=== PATIENT | female | born 1955 | race Caucasian/White ===

== ENCOUNTER → 2017-04-28 | Outpatient (CLI) | payer MEDICAID, OTHER ==
[~2017-04-28] MED LIST: /CELE20CA OR; /ROPI1TA OR; AMLO2.5T OR; ASPI81TA31 OR; DEXILANT PO; FLEXERIL PO; IBUP600T OR; LIPI10TA OR; LYRI150C OR; SAVELLA PO; TRAM50TA2 OR; VOLT1GEL TOP; VYTO10TA5 PO
--- NOTE | 2017-04-28 11:51 | REPMRS ---
Patient History The patient states she has not had a clinical breast exam in over a year. Patient is postmenopausal. Family history of prostate cancer in father at age 60, breast cancer in sister at age 48, endometrial cancer in mother at age 40, endometrial cancer in maternal grandmother, and unknown cancer in brother at age 50. Took unspecified hormones for 1 year. Digital Mammo Screening Bilat: April 28, 2017 - Exam #: [id number] Bilateral CC and MLO view(s) were taken. Technologist: Isadora Kohler, Technologist Prior study comparison: January 23, 2016, bilateral digital mammo screening bilat performed at [facility]. September 21, 2014, bilateral digital mammo screening bilat performed at [facility]. FINDINGS: There are scattered fibroglandular densities. There has been no change in the appearance of the mammogram from the prior studies. There is a mild amount of residual fibroglandular tissue which is fairly symmetric. There is no interval development of dominant mass, architectural distortion, or clustered microcalcification suggestive of malignancy. ASSESSMENT: BI-RADS/ACR category 1 mammogram. Negative. Recommendation Routine screening mammogram in 1 year (for women over age 40). This mammogram was interpreted with the aid of an FDA-approved computer-aided dectection system. Electronically Signed By: Taiwo Bashir MD 04/28/17 [id number]
== END ==
LOC: M RAD 10:50
PROVIDERS: ATTEND Nurse Practitioner Adult Health
DX: Z12.31 Encounter for screening mammogram for malignant neoplasm of breast (principal)

== ENCOUNTER → 2017-09-15 | Outpatient (CLI) | payer OTHER | LOC: M RAD 10:49 | DX: K44.9 Diaphragmatic hernia without obstruction or gangrene (principal) | CPT/HCPCS: 71046 ==

== ENCOUNTER → 2017-12-01 | Outpatient (CLI) | payer OTHER | LOC: M RAD 09:06 | DX: Z87.891 Personal history of nicotine dependence (principal); R06.00 Dyspnea, unspecified | CPT/HCPCS: G0297 ==

== ENCOUNTER → 2018-05-04 | Outpatient (CLI) | payer MEDICARE, MEDICAID, OTHER | LOC: M RAD 08:42 | DX: Z12.31 Encounter for screening mammogram for malignant neoplasm of breast (principal); R20.2 Paresthesia of skin | CPT/HCPCS: 72052 ==

== ENCOUNTER → 2018-12-21 | Outpatient (CLI) | payer MEDICARE, MEDICAID ==
[~2018-12-21] MED LIST changes: -/CELE20CA OR; -/ROPI1TA OR; +CELE1CAP4 OR; +REQU1TAB16 OR
--- NOTE | 2018-12-22 08:32 | REP ---
Clinical: Lung screening. History nicotine dependence. Comparison: 12/01/2017 Technique: Axial low-dose noncontrast images from the thoracic inlet to the upper abdomen using lung screening technique. Findings: The lung ward are well-aerated. Mild emphysematous changes are appreciated. No consolidation, significant nodule or mass lesion is appreciated. No pleural effusion/reaction or pneumothorax. Tracheobronchial tree is patent. Mediastinum demonstrates mild atherosclerotic changes of the coronary arteries without cardiomegaly. Impression: Lung-RADS category I. No nodule or suspicious abnormality. Management recommendations include annual low-dose CT evaluation. Electronically Signed by James Mancilla MD 12/22/2018 08:23 A
== END ==
LOC: M RAD 10:25
PROVIDERS: ATTEND Physician Assistant
DX: Z87.891 Personal history of nicotine dependence (principal)

== ENCOUNTER 2019-05-21 18:26 | Inpatient (IN) | payer MEDICAID, MEDICARE ==
[~2019-05-21] VITALS: Ht 162.6 cm; Wt 95.3 kg
[2019-05-21] MEDS ORDERED: LISI10TA4 PO (18:36)
[2019-05-21] MEDS ORDERED: PANT40TA3 PO (18:36)
[2019-05-21] MEDS ORDERED: ROSU20TA5 PO (18:36)
[2019-05-21] MEDS ORDERED: ARNU1INH3 INH (18:36)
[2019-05-21] MEDS ORDERED: MELO15TA28 PO (18:36)
[2019-05-21] MEDS ORDERED: STIO1AER INH (18:36)
[2019-05-21] MEDS ORDERED: PREG75CA2 PO (18:36)
--- NOTE | 2019-05-21 19:08 | ECGEPIP ---
[facility] - ED Test Date: 2019-05-21 Pat Name: JAI FLORES Department: Room: - Gender: Female [employer] Operator: PARDEEP : [id number] Requested By: ORALIA Becker Order Number: [id number] Reading MD: Alexsander Angulo Measurements Intervals [place] Rate: 94 P: 60 AR: 125 QRS: 5 QRSD: 88 T: 32 QT: 349 QTc: 438 Interpretive Statements SINUS RHYTHM BASELINE ARTIFACT AFFECTS INTERPRETATION NO PRIORS FOR COMPARISON Electronically Signed on 05-21-2019 19:07:42 EDT by Alexsander Angulo
[2019-05-21 19:18] LABS: BASO % 0.5 % (0.0-1.0); EOS # 0.1 10^3/uL (0.0-0.5); EOS % 0.9 % (0.0-3.0); HEMATOCRIT 24.2 % (36.0-47.0); LYMPH # 0.6 10^3/uL (1.5-5.0); LYMPH % 6.7 % (24.0-44.0); MEAN CORPUSCULAR HEMOGLOBIN 16.8 pg (27.0-33.0); MEAN CORPUSCULAR VOLUME 64.5 fl (80.0-96.0); MONO # 0.6 10^3/uL (0.0-0.8); MONO % 6.4 % (0.0-5.0); NEUTROPHILS # 7.4 10^3/uL (1.5-8.5); NEUTROPHILS % 84.9 % (36.0-66.0); PLATELET COUNT, AUTOMATED 329 10^3/uL (150-450); RED BLOOD COUNT 3.75 10^6/uL (4.00-5.40); WHITE BLOOD COUNT 8.8 10^3/uL (4.0-10.0)
[2019-05-21 19:21] LABS: HEMOGLOBIN 6.3 g/dl (12.0-15.5)
[2019-05-21 19:49] LABS: ALBUMIN 3.4 GM/DL (3.2-5.2); ALT/SGPT 15 U/L (12-78); BILIRUBIN,DIRECT < 0.1 MG/DL (0.0-0.2); BILIRUBIN,TOTAL 0.3 MG/DL (0.2-1.0); BLOOD UREA NITROGEN 16 MG/DL (7-18); CALCIUM LEVEL 8.3 MG/DL (8.8-10.2); CARBON DIOXIDE LEVEL 22 MEQ/L (21-32); CHLORIDE LEVEL 106 MEQ/L (98-107); CK-MB VALUE MASS < 1.0 NG/ML (<3.6); CPK CREATINE PHOSPHOKINASE 31 U/L (26-192); CREATININE FOR GFR 1.12 MG/DL (0.55-1.30); GLOMERULAR FILTRATION RATE 52.3 (>45); GLUCOSE, FASTING 148 MG/DL (70-100); MB/CK RELATIVE INDEX 3.23 (< OR =4); NT-PRO BNP 292 PG/ML (<125); POTASSIUM SERUM 4.4 MEQ/L (3.5-5.1); SODIUM LEVEL 138 MEQ/L (136-145); THYROXINE (T4) 12.6 UG/DL (4.5-12.0); TOTAL PROTEIN 7.2 GM/DL (6.4-8.2); TROPONIN I < 0.02 NG/ML (< 0.10)
--- NOTE | 2019-05-21 20:05 | REP ---
HISTORY: Cough. COMPARISON: 09/15/2017 The technique utilized in obtaining the radiograph has magnified the cardiac silhouette and accentuated the interstitial markings. The superior mediastinal structures are midline. The cardiac silhouette is unremarkable in size, shape, and position. The diaphragmatic surfaces of the lungs are regular, and the costophrenic angles are clear. The pulmonary ward are clear. The imaged osseous structures are intact. There is a hiatal hernia, status quo. IMPRESSION: There is no acute cardiopulmonary disease. Electronically Signed by Deon Abrams DO 05/22/2019 09:07 A
[2019-05-21] MEDS ORDERED: PANTOPRAZOLE 40MG INJ (PROTONIX) (C9113) IV ONE (20:15)
[2019-05-21] MEDS ORDERED: ASPI81TA26 PO (20:23)
[2019-05-21] MEDS ORDERED: ROPI1TAB PO (20:23)
[2019-05-21] MEDS ORDERED: TUMS500C PO (20:26)
[2019-05-21] MEDS ORDERED: SODIPOW PO (20:26)
[2019-05-21] MEDS ORDERED: METOCLOPRAMIDE INJ 10MG/2ML VIAL (J2765) IV ONE (20:30)
[2019-05-21 23:29] VITALS: BP 151/67
[2019-05-21 23:45] VITALS: BP 145/68
[2019-05-22] VITALS (26 sets, daily range): BP systolic 122–180; BP diastolic 56–89
[2019-05-22] MEDS: NS 1,000 ML IV SCH ×3 (01:46→15:15)
--- NOTE | 2019-05-22 02:54 | HPEPDOC ---
[facility] Medical History & Physical Date of Admission May 21, 2019 Date of Service: May 21, 2019 Primary Care Physician: Montserrat Crowe Attending Physician: MOIZ SHRESTHA MD History and Physical CHIEF COMPLAINT: Progressive shortness of breath HISTORY OF PRESENT ILLNESS: Violetta is a 63-year-old female with pertinent past medical history of COPD, asthma, GERD, hypertension, and neuropathic pain, who presented to the emergency department on the evening of 05/21 with the chief complaints of progressive shortness of breath over the last month with accompanying lightheadedness, generalized weakness, and epigastric discomfort. Patient reports that she used to be able to walk roughly half a block on flat ground before becoming short of breath, but over the last month, she now gets short of breath after about 10 feet. Patient has an inhaled corticosteroid inhaler medication at home for her asthma, as well as a combination inhaler long-acting anticholinergic/long-acting bronchodilator for her COPD, as well as a rescue albuterol inhaler. Patient reports an increased use of her rescue inhaler recently. The lightheadedness she is experiencing first arose last week and was especially pronounced today. She gets lightheaded whenever standing from a seated/lying position. She denies any syncope, but states on multiple occasions while experiencing the lightheadedness, she feels like she could pass out. Patient describes her epigastric discomfort as a gas/pressure buildup that "hurts like hell." The discomfort spreads laterally from the epigastric region over the ribs bilaterally, and is constant in nature. Patient has tried baking soda and Pepto-Bismol to alleviate her epigastric discomfort but any benefit. She got was very short-lived. Any appreciable activity worsens her shortness of breath. Patient has felt nauseated and vomited 3 times while in the emergency department. At time of admission exam, patient is not nauseated. Patient denies hematemesis and hemoptysis. Patient reports never having a constellation of symptoms like this before. Patient denies any recent illness, recent change in medication, recent sick contacts, and recent extensive travel. Patient was accompanied by her daughter Zahra. Patient's primary care provider is Montserrat Crowe NP, who is affiliated with Dr. Price's office. Patient follows regularly with pulmonology as outpatient, seeing JASSI Ulloa, who is affiliated with Dr. Feroz Gage. In the emergency department, patient received EKG and chest x-ray that were unremarkable. Initial CBC showed microcytic anemia with hemoglobin of 6.3. On review of patient's lifetime summary, hemoglobin baseline appears roughly 11-12. CMP showed mild elevation in BNP and T4. Patient received a single administration of 40 mg IV Protonix, had a type and screen performed, and a stool guaiac test was strongly blue (suggesting upper GI bleed). Patient was admitted to the progressive care unit under the care and medical management of the hospitalist team. PAST MEDICAL HISTORY: COPD Asthma GERD Hypertension Neuropathic pain Restless leg syndrome Hiatal hernia PAST SURGICAL HISTORY: Tonsillectomy Cholecystectomy Surgical removal of ganglion cyst from left forearm/wrist SOCIAL HISTORY: Resides: At own home by herself Children: One grown daughter (Zahra) who lives nearby Employment: Retired; former [employer] Tobacco use: Patient smoked 1-1.5 packs per day of cigarettes for roughly 47 years before stopping 3 years ago. She then began smoking e-cigarette's, reporting her most recent e-cigarette use was last week. ETOH: Denies Illicit drug use: Denies FAMILY HISTORY: Siblings: Canales's esophagus (brother); 2 sisters (breast and lung cancer), both Children: One grown daughter (Zahra) ALLERGIES: Please see below. REVIEW OF SYSTEMS: CONSTITUTIONAL: Denies fever, chills, night sweats, recent unintentional change in weight HEENT: Endorses lightheadedness; Denies headache, syncope, dizziness, ear pain, eye pain, diplopia, blurry vision, rhinorrhea, sore throat CARDIOVASCULAR: Endorses chest pain that arises when her epigastric discomfort is most intense, but is sensed at no other times; denies chest pressure or palpitations RESPIRATORY: Denies shortness of breath at time of admission exam; denies ple uritic chest pain or cough GASTROINTESTINAL: Endorses epigastric discomfort/increased pressure with frequent belching; denies feeling nauseated or vomiting at time of admission exam, but does endorse nausea and vomiting from earlier in the day with 3 episodes of emesis. GENITOURINARY: Denies dysuria or hematuria MUSCULOSKELETAL: Endorses chronic bilateral lower back pain NEUROLOGICAL: Endorses left hand numbness and bilateral lower extremity paresthesias ENDOCRINE: Denies heat or cold intolerance HOME MEDICATIONS: Please see below. PHYSICAL EXAMINATION: VITAL SIGNS: (Noted on monitoring at time of admission exam), heart rate 82, blood pressure 156/74, respiratory rate 19, O2 saturation 100% on room air GENERAL APPEARANCE: Patient appeared a little bit subdued and fatigued. She was lying upright in bed initially during exam, but switched to sitting upright with legs off the side of the bed for most of the exam. She did not appear to be in any acute respiratory distress and was not on any supplemental oxygen. She was awake, alert and oriented 3. She maintained good eye contact. She was speaking in complete sentences, with appropriate responses to questions and commands HEENT: Patient was wearing eyeglasses. Normocephalic, atraumatic. Facial pallor with conjunctival pallor. Anicteric sclera. Pupils were equal, round, reactive to light and accommodation. On extraocular motion testing, patient exhibited a couple quick instances of vertical nystagmus. Carroll and moist mucous membranes.. No pharyngeal erythema or exudate. Trachea is midline. Neck was supple. No cervical or supraclavicular palpable lymphadenopathy. CARDIOVASCULAR: Normal S1, S2 with regular rate and rhythm. No murmurs, rubs, or gallops appreciated. No JVD. Adequate capillary refill. No lower extremity edema. LUNGS: Mildly diminished tidal volume with symmetric chest expansion. No wheezing, rhonchi, or crackles are appreciated on auscultation. There is no tympany to percussion. ABDOMEN: Soft, nondistended. Significant discomfort and pain upon palpation of epigastric area and right upper quadrant. Hypoactive bowel sounds. No hepatomegaly or masses appreciated on palpation. No tympany to percussion. MUSCULOSKELETAL: 5 out of 5 muscle strength testing of upper extremities and lower extremities bilaterally EXTREMITIES: 2+ radial and posterior tibial pulses palpated bilaterally. No lower extremity edema. No cyanosis or clubbing. NEUROLOGICAL: Awake, alert and oriented 3. Maintains good eye contact and responds properly to questions and commands. Sensation to light touch of left hand mildly diminished versus right hand. Moves all extremities upon command. PSYCHIATRIC: Appropriate mood, appropriate affect LABORATORY DATA: Please see below. IMAGIN/11, portable chest x-ray showed no acute cardiopulmonary disease and an unchanged hiatal hernia. MICROBIOLOGY: Please see below. ASSESSMENT & PLAN: This is a 63-year-old female with pertinent past medical history of COPD, asthma, GERD, hypertension, and neuropathic pain who presents the emergency department on the evening of 05/21 with a chief complaint of progressing shortness of breath over the last month with accompanying generalized weakness, lightheadedness, presyncope, and epigastric discomfort and fullness. Initial ED labs showed microcytic anemia with hemoglobin of 6.3. Guaiac stool test result was strongly blue indicating likelihood of upper GI bleed. Patient had 3 episodes of emesis while in the emergency department, but denied hematemesis or hemoptysis. Chest x-ray and EKG were unremarkable. Patient was given IV Protonix and was type and screened. Benefits and risks of blood transfusion were discussed with patient. Patient signed consent form to receive blood transfusion. Patient was transfused 2 units of packed red blood cells. Patient was admitted to the progressive care unit under the care of hospitalist team. Telemetry and scheduled IV Protonix were ordered. IV fluids were started. Morning CBC and metabolic panel were ordered. Influenza vaccination scheduled for the morning. #Symptomatic microcytic anemia -Patient had pallor on exam and appeared to be fatigued and somewhat subdued. -Initial hemoglobin was 6.3, with MCV of 64.5; lifetime summary review showed patient's baseline hemoglobin around 11-12 -Patient signed consent form to receive blood transfusion after discussing benefits and risks with provider. Patient was transfused 2 units of packed red blood cells. -Morning CBC ordered -IV fluids ordered. Patient on clear liquid diet -IV Protonix scheduled dose, q12h -Orthostatics ordered with morning vitals to assess for possible orthostatic hypotension in the setting of recent lightheadedness and presyncope -Daily thiamine and folic acid ordered #Possible upper gastro-intestinal bleed -Patient had strongly blue result on Guaiac stool test in ED, indicating possible upper GI bleed -Patient had pallor on exam, and 3 episodes of emesis in [facility] department. There was no hematemesis or hemoptysis. -Patient complaining of epigastric fullness and discomfort -Patient has history of GERD and hiatal hernia -GI consult was made for the morning (Dr. Ruvalcaba) -Patient on clear liquid diet -IV Protonix scheduled dose, q12h #GERD -Patient complaining of epigastric fullness and discomfort -Chest x-ray showed unchanged hiatal hernia -Continue with scheduled IV Protonix -Patient on clear liquid diet #COPD -Patient has home albuterol rescue inhaler that she's used more frequently of late -Patient also has home combo long acting anti-cholinergic/long-acting bronchodilator. This medication is not available on hospital formulary. -No wheezing, rhonchi, or crackles appreciated on auscultation while examining patient. Patient had good saturation on room air -Patient prescribed prn albuterol inhaler while inpatient #Asthma -Patient has home albuterol rescue inhaler that she's used more frequently of late -No wheezing was appreciated upon auscultation when examining patient -Patient also has home inhaled corticosteroid. This medication is not available on hospital formulary. -Patient good saturation, room air -Patient prescribed prn albuterol inhaler while inpatient #Hypertension -Patient has been maintaining pressures with regular heart rate in the setting of microcytic anemia (Hgb 6.3) -Patient's home lisinopril was continued #Restless leg syndrome -Patient's home ropinirole was continued #Neuropathic pain -Patient's home Lyrica was held initially #DVT prophylaxis: Teds and sequentials were ordered. Patient has activity directives of out of bed with assist and has potential for upper GI bleed. #Stress ulcer prophylaxis: Patient receiving scheduled IV Protonix I saw and evaluated the patient. Discussed with resident and agree with resident's findings and plan as documented in the resident's note. Vital Signs Vital Signs Date Time Temp Pulse Resp B/P (MAP) Pulse Ox O2 Delivery O2 Flow Rate FiO2 05/22/19 01:06 97.5 79 20 167/89 99 05/22/19 00:47 Room Air Laboratory Data Labs 24H Laboratory Tests 2 05/21/19 19:07: Immature Granulocyte % (Auto) 0.6, White Blood Count 8.8, Red Blood Count 3.75L, Hemoglobin 6.3*L, Hematocrit 24.2L, Mean Corpuscular Volume 64.5L, Mean Corpuscular Hemoglobin 16.8L, Mean Corpuscular Hemoglobin Concent 26.0L, Red Cell Distribution Width 21.1H, Platelet Count 329, Neutrophils (%) (Auto) 84.9H, Lymphocytes (%) (Auto) 6.7L, Monocytes (%) (Auto) 6.4H, Eosinophils (%) (Auto) 0.9, Basophils (%) (Auto) 0.5, Neutrophils # (Auto) 7.4, Lymphocytes # (Auto) 0.6L, Monocytes # (Auto) 0.6, Eosinophils # (Auto) 0.1, Basophils # (Auto) 0.0, Nucleated Red Blood Cells % (auto) 0.3H, Anion Gap 10, Glomerular Filtration Rate 52.3, Calcium Level 8.3L, Aspartate Amino Transf (AST/SGOT) 7, Alanine Aminotransferase (ALT/SGPT) 15, Alkaline Phosphatase 92, Total Bilirubin 0.3, Direct Bilirubin < 0.1, Total Creatine Kinase 31, Creatine Kinase MB < 1.0, Creatine Kinase MB Relative Index 3.23, Troponin I < 0.02, EQ-Zqf-O-Type Natriuretic Peptide 292H, Total Protein 7.2, Albumin 3.4, Albumin/Globulin Ratio 0.89L, Thyroid Stimulating Hormone (TSH) 1.420, Thyroxine (T4) 12.6H CBC/BMP Laboratory Tests 05/21/19 19:07 Red Blood Count 3.75 L, Mean Corpuscular Volume 64.5 L, Mean Corpuscular Hemoglobin 16.8 L, Mean Corpuscular Hemoglobin Concent 26.0 L, Red Cell Distribution Width 21.1 H, Neutrophils (%) (Auto) 84.9 H, Lymphocytes (%) (Auto) 6.7 L, Monocytes (%) (Auto) 6.4 H, Eosinophils (%) (Auto) 0.9, Basophils (%) (Auto) 0.5, Neutrophils # (Auto) 7.4, Lymphocytes # (Auto) 0.6 L, Monocytes # (Auto) 0.6, Eosinophils # (Auto) 0.1, Basophils # (Auto) 0.0 Home Medications Scheduled Aspirin (Aspirin EC) 81 Mg Tablet.dr, 81 MG PO DAILY Calcium Carbonate (Tums) 200 Mg Tab.chew, 500 MG PO PC Fluticasone Furoate (Arnuity Ellipta) 200 Mcg Blst.w.dev, 1 PUFF INH DAILY Lisinopril (Lisinopril) 10 Mg Tablet, 10 MG PO DAILY Meloxicam (Meloxicam) 15 Mg Tablet, 15 MG PO DAILY Pantoprazole Sodium (Pantoprazole Sodium) 40 Mg Tablet.dr, 40 MG PO BID Pregabalin (Pregabalin) 75 Mg Capsule, 75 MG PO BID Ropinirole HCl (Ropinirole HCl) 1 Mg Tablet, 1 MG PO QHS Rosuvastatin Calcium (Rosuvastatin Calcium) 20 Mg Tablet, 20 MG PO DAILY Sodium Bicarbonate (Sodium Bicarbonate) 454 Gm Powder, 1 TSP PO WM MIXED WITH 4 OZ WATER Tiotropium Br/Olodaterol HCl (Stiolto Respimat Inhal [place]) 4 Gm Mist.inhal, 2 PUFF INH DAILY Allergies Coded Allergies: No Known Allergies (Verified , 02/14/03) A-FIB/CHADSVASC A-FIB History Current/History of A-Fib/PAF?: No Current PO Anticoag Therapy: No (teds and sequentials ordered) DENISE PERRY PGY-1 May 22, 2019 02:54 MOIZ SHRESTHA MD May 22, 2019 18:50
[2019-05-22] MEDS ORDERED: ALBUTEROL 90 MCG/ACT 8GM HFA INHALER INH PRN (03:15)
[2019-05-22] MEDS: rOPINIRole 1MG TAB PO SCH ×2 (03:52→21:18)
[2019-05-22 08:03] LABS: BASO % 0.6 % (0.0-1.0); EOS % 0.6 % (0.0-3.0); HEMATOCRIT 27.1 % (36.0-47.0); HEMOGLOBIN 7.8 g/dl (12.0-15.5); LYMPH # 0.7 10^3/uL (1.5-5.0); LYMPH % 10.5 % (24.0-44.0); MEAN CORPUSCULAR HEMOGLOBIN 20.1 pg (27.0-33.0); MEAN CORPUSCULAR HGB CONC 28.8 g/dl (32.0-36.5); MEAN CORPUSCULAR VOLUME 69.8 fl (80.0-96.0); MONO # 0.5 10^3/uL (0.0-0.8); NEUTROPHILS % 79.5 % (36.0-66.0); PLATELET COUNT, AUTOMATED 252 10^3/uL (150-450); RED BLOOD COUNT 3.88 10^6/uL (4.00-5.40); WHITE BLOOD COUNT 6.3 10^3/uL (4.0-10.0)
[2019-05-22 08:22] LABS: BLOOD UREA NITROGEN 14 MG/DL (7-18); CALCIUM LEVEL 8.2 MG/DL (8.8-10.2); CARBON DIOXIDE LEVEL 23 MEQ/L (21-32); CHLORIDE LEVEL 111 MEQ/L (98-107); CREATININE FOR GFR 0.92 MG/DL (0.55-1.30); GLOMERULAR FILTRATION RATE > 60.0 (>45); GLUCOSE, FASTING 103 MG/DL (70-100); SODIUM LEVEL 140 MEQ/L (136-145)
[2019-05-22] MEDS: LISINOPRIL 10 MG TAB PO SCH (08:35)
[2019-05-22] MEDS: ROSUVASTATIN 10 MG TAB (CRESTOR) PO SCH (08:35)
[2019-05-22] MEDS: PANTOPRAZOLE 40MG INJ (PROTONIX) (C9113) IV SCH ×2 (08:35→21:18)
[2019-05-22] MEDS: THIAMINE HCL 200 MG/2 ML VIAL (J3411) IV SCH (08:35)
[2019-05-22] MEDS ORDERED: FOLIC ACID 1MG/0.2ML VIAL SC SCH (09:00)
[2019-05-22] MEDS ORDERED: FLUBLOK(EGG FREE)(QUAD)INFLUENZA VACC 0.5ML SYRINGE (90682)18YRS&OLDER IM ONE (09:00)
--- NOTE | 2019-05-22 10:23 | IPNPDOC ---
Date Seen The patient was seen on 05/22/19. Progress Note SUBJECTIVE: Patient is a 63-year-old female who was admitted to the hospital for symptomatic anemia thought to be secondary to an insidious GI bleed. Patient was interviewed and examined this morning her hospital room. Repeat hemoglobin this morning status post 2 units of blood was found to be 7.8. Patient reports improvement in her dizziness and shortness of breath. She denies any chest pain, currently breathing, abdominal pain. She has utilized the bathroom this morning without any difficulty. She denies any milena blood or black tarry stools this morning. She denies any pain or discomfort. OBJECTIVE PHYSICAL EXAMINATION: VITAL SIGNS: Please see below. GENERAL: She was interviewed and examined in her hospital room. Patient was found to be laying in her hospital bed comfortably in no acute distress. She was alert and oriented and able to answer questions appropriately. HEENT: Normocephalic, atraumatic, EOMI, no scleral icterus, some conjunctival pallor noted. His membranes are moist. CARDIOVASCULAR: Regular rate and rhythm, normal S1 and S2 no murmurs auscultated RESPIRATORY: Clear to auscultation bilaterally without any wheezes rales or rhonchi, good air movement ABDOMINAL: Obese, soft, nontender, nondistended, no organomegaly EXTREMITIES: No lower extremity edema noted or calf tenderness bilaterally NEUROLOGICAL: Awake alert and oriented 3 PSYCHOLOGICAL: Mood and affect are appropriate given patient's current clinical condition LABORATORY DATA: Please see below IMAGING STUDIES: Chest x-ray (05/21/19): There is no acute cardio pulmonary disease. ASSESSMENT AND PLAN: This is a 63-year-old female with pertinent past medical history of COPD, asthma, GERD, hypertension, and neuropathic pain who presents the emergency department on the evening of 05/21 with a chief complaint of progressing shortness of breath over the last month with accompanying generalized weakness, lightheadedness, presyncope, and epigastric discomfort and fullness. Initial ED labs showed microcytic anemia with hemoglobin of 6.3. Guaiac stool test result was strongly blue indicating likelihood of upper GI bleed. Patient had 3 episodes of emesis while in the emergency department, but denied hematemesis or hemoptysis. Chest x-ray and EKG were unremarkable. Patient was given IV Protonix and was type and screened. Benefits and risks of blood transfusion were discussed with patient. Patient signed consent form to receive blood transfusion. Patient was transfused 2 units of packed red blood cells. Patient was admitted to the progressive care unit under the care of hospitalist team. Telemetry and scheduled IV Protonix were ordered. IV fluids were started. Repeat CBC this morning following 2 units of blood and was found to be 7.8. Patient to be given an additional 2 units with repeat CBC later today. GI was consulted and was in agreement to see the patient later in the day. Patient be transitioned to a regular diet for today and clear liquids tomorrow with a tentative plan for scope on Friday. PROBLEMS: #Symptomatically anemia, suspected secondary from GI bleed Patient presented to the emergency department pallorous and feeling fatigued. One-month history of intermittent black tarry stools. Patient states that she had previously had a normal colonoscopy and EGD but is unsure as to when these tests were performed. She states they occur greater than 5 years ago. Lifetime review of the patient's baseline hemoglobin found to be around 1112.Presenting hemoglobin of 6.3. Patient is status post 2 units of packed cells. Repeat hemoglobin this morning 7.8. Plan to administer 2 more units of packed red cells. Continue IV Protonix for GI prophylaxis. GI consult placed and we appreciate their assistance in managing this patient. Specialist planning on seeing the patient later this afternoon. Patient to be continued on regular diet today and then transitioned to clears tomorrow for a possible scope on Friday. Continue to trend hemoglobin with serial H&H. #GERD Unchanged hiatal hernia on CXR Patient receiving IV Protonix for GI prophylaxis. #COPD Continue when necessary albuterol inhaler #Asthma Continue when necessary albuterol inhaler Hypertension Pressures remained stable with regular heart rate. Continue home lisinopril. #Restless leg syndrome Continue home ropinirole #Neuropathic pain Continue home dose of Lyrica DISPOSITION: Anticipate discharge following GI consult and need for in-hospital EGD/colonoscopy is determined. DVT PROPHYLAXIS: TEDs and Sequentials given possibility GI bleed. VS, I&O, 24H, Fishbone Vital Signs/I&O Vital Signs Date Time Temp Pulse Resp B/P (MAP) Pulse Ox O2 Delivery O2 Flow Rate FiO2 05/22/19 08:35 138/68 05/22/19 07:35 98.8 75 18 94 05/22/19 00:47 Room Air I&O- Last 24 Hours up to 6 AM 05/22/19 06:00 Intake Total 2150 ml Output Total 425 ml Balance 1725 ml Laboratory Data 24H LABS Laboratory Tests 2 05/21/19 19:07: Immature Granulocyte % (Auto) 0.6, White Blood Count 8.8, Red Blood Count 3.75L, Hemoglobin 6.3*L, Hematocrit 24.2L, Mean Corpuscular Volume 64.5L, Mean Corpuscular Hemoglobin 16.8L, Mean Corpuscular Hemoglobin Concent 26.0L, Red Cell Distribution Width 21.1H, Platelet Count 329, Neutrophils (%) (Auto) 84.9H, Lymphocytes (%) (Auto) 6.7L, Monocytes (%) (Auto) 6.4H, Eosinophils (%) (Auto) 0.9, Basophils (%) (Auto) 0.5, Neutrophils # (Auto) 7.4, Lymphocytes # (Auto) 0.6L, Monocytes # (Auto) 0.6, Eosinophils # (Auto) 0.1, Basophils # (Auto) 0.0, Nucleated Red Blood Cells % (auto) 0.3H, Anion Gap 10, Glomerular Filtration Rate 52.3, Calcium Level 8.3L, Aspartate Amino Transf (AST/SGOT) 7, Alanine Aminotransferase (ALT/SGPT) 15, Alkaline Phosphatase 92, Total Bilirubin 0.3, Direct Bilirubin < 0.1, Total Creatine Kinase 31, Creatine Kinase MB < 1.0, Creatine Kinase MB Relative Index 3.23, Troponin I < 0.02, OX-Tpt-X-Type Natriuretic Peptide 292H, Total Protein 7.2, Albumin 3.4, Albumin/Globulin Ratio 0.89L, Thyroid Stimulating Hormone (TSH) 1.420, Thyroxine (T4) 12.6H 05/22/19 07:43: Immature Granulocyte % (Auto) 0.8, White Blood Count 6.3, Red Blood Count 3.88L, Hemoglobin 7.8L, Hematocrit 27.1L, Mean Corpuscular Volume 69.8L, Mean Corpuscular Hemoglobin 20.1L, Mean Corpuscular Hemoglobin Concent 28.8L, Red Cell Distribution Width 23.8H, Platelet Count 252, Neutrophils (%) (Auto) 79.5H, Lymphocytes (%) (Auto) 10.5L, Monocytes (%) (Auto) 8.0H, Eosinophils (%) (Auto) 0.6, Basophils (%) (Auto) 0.6, Neutrophils # (Auto) 5.0, Lymphocytes # (Auto) 0.7L, Monocytes # (Auto) 0.5, Eosinophils # (Auto) 0.0, Basophils # (Auto) 0.0, Nucleated Red Blood Cells % (auto) 0.0, Anion Gap 6L, Glomerular Filtration Rate > 60.0, Calcium Level 8.2L, Blood Urea Nitrogen 14, Creatinine 0.92, Sodium Level 140, Potassium Level 4.0, Chloride Level 111H, Carbon Dioxide Level 23 CBC/BMP Laboratory Tests 05/21/19 19:07 Red Blood Count 3.75 L, Mean Corpuscular Volume 64.5 L, Mean Corpuscular Hemoglobin 16.8 L, Mean Corpuscular Hemoglobin Concent 26.0 L, Red Cell Distribution Width 21.1 H, Neutrophils (%) (Auto) 84.9 H, Lymphocytes (%) (Auto) 6.7 L, Monocytes (%) (Auto) 6.4 H, Eosinophils (%) (Auto) 0.9, Basophils (%) (Auto) 0.5, Neutrophils # (Auto) 7.4, Lymphocytes # (Auto) 0.6 L, Monocytes # (Auto) 0.6, Eosinophils # (Auto) 0.1, Basophils # (Auto) 0.0 05/22/19 07:43 Red Blood Count 3.88 L, Mean Corpuscular Volume 69.8 L, Mean Corpuscular Hemoglobin 20.1 L, Mean Corpuscular Hemoglobin Concent 28.8 L, Red Cell Distribution Width 23.8 H, Neutrophils (%) (Auto) 79.5 H, Lymphocytes (%) (Auto) 10.5 L, Monocytes (%) (Auto) 8.0 H, Eosinophils (%) (Auto) 0.6, Basophils (%) (Auto) 0.6, Neutrophils # (Auto) 5.0, Lymphocytes # (Auto) 0.7 L, Monocytes # (Auto) 0.5, Eosinophils # (Auto) 0.0, Basophils # (Auto) 0.0, Calcium Level 8.2 L GME ATTESTATION GME ATTESTATION My faculty preceptor for this patient encounter was physically present during the encounter and was fully available. All aspects of the patient interview, examination, medical decision making process, and medical care plan development were reviewed and approved by the faculty preceptor. The faculty preceptor is aware and concurs with the plan as stated in the body of this note and will attest to such by his/her cosignature. ATTENDING NOTE I, Tete Arora, have independently examined this patient and performed my own physical exam, as well as reviewed the documentation and edited where necessary. I have discussed in detail with the resident / student the findings and plan of treatment as documented by the resident / student and edited their note. I agree with their findings and treatment plan and have edited their documentation. I will continue to follow the patient during this hospital stay. HA LARIOS DO May 22, 2019 10:23 TETE ARORA MD May 22, 2019 15:31
[2019-05-22 15:50] LABS: HEMATOCRIT 33.7 % (36.0-47.0)
[2019-05-22 15:54] LABS: HEMOGLOBIN 10.2 g/dl (12.0-15.5)
[2019-05-22 19:29] LABS: HEMATOCRIT 33.7 % (36.0-47.0); HEMOGLOBIN 10.1 g/dl (12.0-15.5)
--- NOTE | 2019-05-22 23:22 | CR.PDOC ---
General Date of Consultation: May 22, 2019 Referring Provider: KARIN TELLEZ MD Attending Physician: BEL FLOREZ MD Consultation Primary physician/ hospitalist: Dr. Montserrat Crowe,/ Dr. Tellez Reason for consult: Symptomatic anemia. HPI: 63 year old female patient with BA/ COPD ( quit smoking many years ago), HTN, Neuropathic pain, Chronic acid reflux ( not well controlled) presented to the emergency department on the evening of 05/21 with the chief complaints of progressive shortness of breath over the last month with accompanying lightheadedness, generalized weakness, and chronic epigastric discomfort. Patient is noted to have severe anemia on labs and GI consulted for the same. Patient reports that she was having chronic upper abdominal pain, moderate to severe, uncontrolled with current acid suppressing medications she is using at home. Patient denies any overt external bleeding but did notice dark, diarrheal stools few weeks ago, which resolved on its own. Patient also reported having nausea and few episodes of vomiting in ER but no blood in vomiting. Pertinent negative GI symptoms: Patient denies fever, sick contacts, recent travel, loss of appetite, early satiety or unintentional weight loss. No history of hematemesis, or hematochezi a. Review of Systems: GI: as stated above CVS: No chest pain, No palpitations, No leg swelling. RS: No Shortness of breath, No Wheezing, no cough EDM OPERATOR: No dizziness, No motor weakness, No sensory problems Hematology: No bruising, No gum bleeding, Musculoskeletal: No joint pain, ambulating well. Skin: No rash : No hematuria, No burning sensation of the urine ENT: No ear discharge/ pain, No dysphagia. Eyes: No photophobia. Jaundice Home medications: reviewed. Antithrombotic agents ASA 81 mg Medical h/o: As above. Surgical h/o: Gall bladder surgery.. Social h/o: Alcohol Denies, smoking Quit smoking., IVDA/ drugs Denies. Family h/o of GI cancers - None Prior Endoscopies: --- EGD [place] [address] Bennett for heartburn noted large hiatal hernia. Noted esophagitis on Biopsies. --- Colonoscopy in 2013 -- Done for screening by Dr. Bennett few sessile polyps in recto-sigmoid. Prior GI evaluations: Follows with Dr. Bennett Exam: Vitals: reviewed General: Alert and oriented x 3, not in distress HEENT: Mild pallor, no icterus. Normal oropharynx, No cervical lymph nodes. Chest: symmetric with bilateral clear air entry, CVS: S1, S2 heard, normal, no murmurs . Abdomen: non-distended, no surgical scars, soft, non-tender, ( reports prior pain but currently normal), no palpable masses, normal bowel sounds heard. Rectal exam: Patient refused / Deferred at this time in view of scheduled colonoscopy. Extremities: no pedal edema, pulses palpable. EDM OPERATOR: no focal motor or sensory deficits. Moves all extremities Skin: no rash. Labs: reviewed. Severe microcytic anemia. Imaging: reviewed. Impression: - Symptomatic anemia with chronic history of uncontrolled acid reflux, epigastric pain with prior episodes of dark stools DDxEsophagitis vs PUD vs AVMs vs Colon polyps vs less likely esophageal cancer. Recommendations: - Patient educated about the test results, possible differential diagnoses and All questions answered. - Monitor H.H and transfuse as needed to hemoglobin level of 8. - Continue with IV PPI pushes for now. - Will schedule for EGD and Colonoscopy after bowel preparation. - The procedures, indications, risks (bleeding, perforation, infection, hypotension, respiratory depression, allergy, need for endotracheal intubation, surgery, colostomy, cardiac arrest, even ), benefits, limitations (e.g., missing a lesion), and all other alternatives (including no intervention) were explained to the patient who understood and agreed for the procedures. - Bowel prep ordered placed. - Follow operative note for post procedure recommendations. Plan of care discussed with patient and primary team. Patient verbalized understanding and agreed with the plan. Vital Signs/I&O Vital Signs Date Time Temp Pulse Resp B/P (MAP) Pulse Ox O2 Delivery O2 Flow Rate FiO2 05/22/19 20:00 98.8 82 18 150/86 (107) 100 05/22/19 00:47 Room Air I&O- Last 24 Hours up to 6 AM 05/22/19 06:00 Intake Total 2150 ml Output Total 425 ml Balance 1725 ml Laboratory Data Labs 24H Laboratory Tests 2 05/22/19 07:43: Immature Granulocyte % (Auto) 0.8, White Blood Count 6.3, Red Blood Count 3.88L, Hemoglobin 7.8L, Hematocrit 27.1L, Mean Corpuscular Volume 69.8L, Mean Corpuscular Hemoglobin 20.1L, Mean Corpuscular Hemoglobin Concent 28.8L, Red Ce ll Distribution Width 23.8H, Platelet Count 252, Neutrophils (%) (Auto) 79.5H, Lymphocytes (%) (Auto) 10.5L, Monocytes (%) (Auto) 8.0H, Eosinophils (%) (Auto) 0.6, Basophils (%) (Auto) 0.6, Neutrophils # (Auto) 5.0, Lymphocytes # (Auto) 0.7L, Monocytes # (Auto) 0.5, Eosinophils # (Auto) 0.0, Basophils # (Auto) 0.0, Nucleated Red Blood Cells % (auto) 0.0, Anion Gap 6L, Glomerular Filtration Rate > 60.0, Blood Urea Nitrogen 14, Creatinine 0.92, Sodium Level 140, Potassium Level 4.0, Chloride Level 111H, Carbon Dioxide Level 23, Calcium Level 8.2L CBC/BMP Laboratory Tests 05/22/19 07:43 Red Blood Count 3.88 L, Mean Corpuscular Volume 69.8 L, Mean Corpuscular Hemoglobin 20.1 L, Mean Corpuscular Hemoglobin Concent 28.8 L, Red Cell Distribution Width 23.8 H, Neutrophils (%) (Auto) 79.5 H, Lymphocytes (%) (Auto) 10.5 L, Monocytes (%) (Auto) 8.0 H, Eosinophils (%) (Auto) 0.6, Basophils (%) (Auto) 0.6, Neutrophils # (Auto) 5.0, Lymphocytes # (Auto) 0.7 L, Monocytes # (Auto) 0.5, Eosinophils # (Auto) 0.0, Basophils # (Auto) 0.0, Calcium Level 8.2 L 05/22/19 15:38 05/22/19 19:14 Microbiology Microbiology 05/22/19 Stool Occult Blood (SREE) - Final, Complete Allergies Coded Allergies: No Known Allergies (Verified , 02/14/03) Home Medications Scheduled Aspirin (Aspirin EC) 81 Mg Tablet.dr, 81 MG PO DAILY, (Reported) Calcium Carbonate (Tums) 200 Mg Tab.chew, 500 MG PO PC, (Reported) Fluticasone Furoate (Arnuity Ellipta) 200 Mcg Blst.w.dev, 1 PUFF INH DAILY, (Reported) Lisinopril (Lisinopril) 10 Mg Tablet, 10 MG PO DAILY, (Reported) Meloxicam (Meloxicam) 15 Mg Tablet, 15 MG PO DAILY, (Reported) Pantoprazole Sodium (Pantoprazole Sodium) 40 Mg Tablet.dr, 40 MG PO BID, (Reported) Pregabalin (Pregabalin) 75 Mg Capsule, 75 MG PO BID, (Reported) Ropinirole HCl (Ropinirole HCl) 1 Mg Tablet, 1 MG PO QHS, (Reported) Rosuvastatin Calcium (Rosuvastatin Calcium) 20 Mg Tablet, 20 MG PO DAILY, (Reported) Sodium Bicarbonate (Sodium Bicarbonate) 454 Gm Powder, 1 TSP PO WM, (Reported) MIXED WITH 4 OZ WATER Tiotropium Br/Olodaterol HCl (Stiolto Respimat Inhal [place]) 4 Gm Mist.inhal, 2 PUFF INH DAILY, (Reported) BEL FLOREZ MD May 22, 2019 23:22
[2019-05-23] VITALS: BP 128/72
[2019-05-23 04:00] VITALS: BP_SYST 160; BP_SYST 164; BP_SYST 166; BP_DIAS 88; BP_DIAS 90; BP_DIAS 94
[2019-05-23] MEDS: NS 1,000 ML IV SCH ×2 (04:38→17:06)
[2019-05-23 07:35] VITALS: BP 134/76
[2019-05-23] MEDS: ROSUVASTATIN 10 MG TAB (CRESTOR) PO SCH (07:51)
[2019-05-23] MEDS: LISINOPRIL 10 MG TAB PO SCH (07:51)
[2019-05-23] MEDS: THIAMINE HCL 200 MG/2 ML VIAL (J3411) IV SCH (07:52)
[2019-05-23] MEDS: PANTOPRAZOLE 40MG INJ (PROTONIX) (C9113) IV SCH ×2 (07:52→21:10)
[2019-05-23 07:55] LABS: BASO % 0.6 % (0.0-1.0); EOS # 0.2 10^3/uL (0.0-0.5); EOS % 2.9 % (0.0-3.0); HEMATOCRIT 33.4 % (36.0-47.0); HEMOGLOBIN 9.9 g/dl (12.0-15.5); LYMPH # 0.8 10^3/uL (1.5-5.0); LYMPH % 13.9 % (24.0-44.0); MEAN CORPUSCULAR HEMOGLOBIN 21.8 pg (27.0-33.0); MEAN CORPUSCULAR HGB CONC 29.6 g/dl (32.0-36.5); MEAN CORPUSCULAR VOLUME 73.6 fl (80.0-96.0); MONO # 0.4 10^3/uL (0.0-0.8); MONO % 8.1 % (0.0-5.0); NEUTROPHILS % 73.8 % (36.0-66.0); PLATELET COUNT, AUTOMATED 258 10^3/uL (150-450); RED BLOOD COUNT 4.54 10^6/uL (4.00-5.40); WHITE BLOOD COUNT 5.5 10^3/uL (4.0-10.0)
[2019-05-23 08:16] LABS: CALCIUM LEVEL 8.1 MG/DL (8.8-10.2); CREATININE FOR GFR 1.03 MG/DL (0.55-1.30); GLOMERULAR FILTRATION RATE 57.6 (>45); MAGNESIUM LEVEL 2.3 MG/DL (1.8-2.4); POTASSIUM SERUM 4.1 MEQ/L (3.5-5.1)
[2019-05-23] MEDS: FOLIC ACID 1MG/0.2ML VIAL SC SCH (10:33)
--- NOTE | 2019-05-23 10:48 | IPNPDOC ---
Text Note Date of Service The patient was seen on 05/23/19. NOTE Subjective: Patient is a 63-year-old female with a past medical history of COPD/Asthma, HTN, Neuropathic pain, GERD who presented to the emergency room with complaints of shortness of breath with exertion and lightheadedness. Patient was admitted to the hospitalist service for symptomatic anemia, suspected to be from a GI bleed. Gastroenterology was called on consultation. Patient was seen and examined at the bedside. Currently patient reports that she's feeling fine and denies any lightheadedness, dizziness or shortness of breath with exertion. She denies chest pain, nausea, vomiting, abdominal pain and has not expense any bowel movements since yesterday. Objective: Vitals (See below) General: Lying in bed, no acute distress, comfortable, AAOx3 HEENT: NC, AT CVS: RRR, +S1S2 Lungs: Fair air entry b/l, -w/r/r Abdomen: Soft, ND, NT Extremities: - Edema, - Calf tenderness Assessment and plan: Symptomatic anemia - likely 2/2 GI source - Presented to the emergency room with complaints of symptomatic anemia described dizziness and shortness of breath with exertion - Currently, patient remains hemodynamically stable - Hemoglobin has improved appropriately after 4 units of PRBC - Will continue to follow hemoglobin trend - c/w Protonix IV BID - Patient will receive bowel prep today - Gastroenterology has been consultation; patient has been scheduled for an EGD and colonoscopy tomorrow morning COPD / Asthma - c/w Inhaled therapy as ordered HTN - BP remains well controlled - c/w Lisinopril with holding parameters DLP - c/w Rosuvastatin Restless leg syndrome - c/w Ropinirole Neuropathic pain - c/w Pregabalin GERD - c/w Protonix DVT prophylaxis - c/w TEDs / Sequentials Disposition: - Anticipate discharge following GI consult and need for in-hospital EGD/colonoscopy is determined. VS,Fishbone, I+O VS, Fishbone, I+O Laboratory Tests 05/22/19 15:38 05/22/19 19:14 05/23/19 07:42 Red Blood Count 4.54, Mean Corpuscular Volume 73.6 L, Mean Corpuscular Hemoglobin 21.8 L, Mean Corpuscular Hemoglobin Concent 29.6 L, Red Cell Distribution Width 25.1 H, Neutrophils (%) (Auto) 73.8 H, Lymphocytes (%) (Auto) 13.9 L, Monocytes (%) (Auto) 8.1 H, Eosinophils (%) (Auto) 2.9, Basophils (%) (Auto) 0.6, Neutrophils # (Auto) 4.0, Lymphocytes # (Auto) 0.8 L, Monocytes # (Auto) 0.4, Eosinophils # (Auto) 0.2, Basophils # (Auto) 0.0, Calcium Level 8.1 L Vital Signs Date Time Temp Pulse Resp B/P (MAP) Pulse Ox O2 Delivery O2 Flow Rate FiO2 05/23/19 07:51 134/76 05/23/19 07:35 97.1 66 18 96 05/22/19 00:47 Room Air I&O- Last 24 Hours up to 6 AM 05/23/19 06:00 Intake Total 3777 ml Output Total 1775 ml Balance 2002 ml KARIN ARORA MD May 23, 2019 10:48
[2019-05-23 11:44] VITALS: BP 144/88
[2019-05-23] MEDS ORDERED: GOLYTELY SOLN 4000 ML BTL PO ONE (14:00)
[2019-05-23] MEDS: ACETAMINOPHEN TAB 650MG DOSE (2X325MG) PO PRN (14:39)
[2019-05-23 15:57] VITALS: BP 148/82
[2019-05-23] MEDS ORDERED: BISACODYL 5 MG TAB PO ONE (16:00)
[2019-05-23 20:00] VITALS: BP 156/80
[2019-05-23] MEDS: rOPINIRole 1MG TAB PO SCH (21:09)
[2019-05-24] VITALS: BP 162/90
[2019-05-24 04:00] VITALS: BP 148/88
[2019-05-24] MEDS: NS 1,000 ML IV SCH ×2 (06:57→22:56)
[2019-05-24 07:51] LABS: BASO % 0.4 % (0.0-1.0); EOS # 0.2 10^3/uL (0.0-0.5); EOS % 3.6 % (0.0-3.0); HEMATOCRIT 32.4 % (36.0-47.0); HEMOGLOBIN 9.6 g/dl (12.0-15.5); LYMPH # 0.6 10^3/uL (1.5-5.0); LYMPH % 11.8 % (24.0-44.0); MEAN CORPUSCULAR HEMOGLOBIN 22.3 pg (27.0-33.0); MEAN CORPUSCULAR HGB CONC 29.6 g/dl (32.0-36.5); MEAN CORPUSCULAR VOLUME 75.3 fl (80.0-96.0); MONO # 0.4 10^3/uL (0.0-0.8); MONO % 7.8 % (0.0-5.0); NEUTROPHILS # 3.6 10^3/uL (1.5-8.5); NEUTROPHILS % 75.8 % (36.0-66.0); PLATELET COUNT, AUTOMATED 235 10^3/uL (150-450); WHITE BLOOD COUNT 4.8 10^3/uL (4.0-10.0)
[2019-05-24] MEDS: ROSUVASTATIN 10 MG TAB (CRESTOR) PO SCH (07:54)
[2019-05-24] MEDS: PANTOPRAZOLE 40MG INJ (PROTONIX) (C9113) IV SCH ×2 (07:54→19:47)
[2019-05-24] MEDS: THIAMINE HCL 200 MG/2 ML VIAL (J3411) IV SCH (07:54)
[2019-05-24] MEDS: LISINOPRIL 10 MG TAB PO SCH (07:55)
[2019-05-24 08:00] VITALS: BP 149/74
[2019-05-24 08:13] LABS: BLOOD UREA NITROGEN 5 MG/DL (7-18); CALCIUM LEVEL 7.9 MG/DL (8.8-10.2); CARBON DIOXIDE LEVEL 22 MEQ/L (21-32); CHLORIDE LEVEL 115 MEQ/L (98-107); CREATININE FOR GFR 0.86 MG/DL (0.55-1.30); GLOMERULAR FILTRATION RATE > 60.0 (>45); GLUCOSE, FASTING 101 MG/DL (70-100); POTASSIUM SERUM 3.6 MEQ/L (3.5-5.1); SODIUM LEVEL 144 MEQ/L (136-145)
[2019-05-24] MEDS: FOLIC ACID 1MG/0.2ML VIAL SC SCH (10:49)
[2019-05-24] MEDS ORDERED: PROPOFOL 200 MG/20 ML VIAL As Ordered ONE (11:39)
[2019-05-24] MEDS ORDERED: LIDOCAINE 2% INJ 100 MG/5 ML SDV (FOR ANES.) As Ordered ONE (11:39)
--- NOTE | 2019-05-24 12:32 | IPNPDOC ---
Date Seen The patient was seen on 05/24/19. Progress Note Subjective: Patient was interviewed and examined today in her hospital room. Patient was found to be resting comfortably in bed. She states that she has finished her bowel prep without issue. She is requesting witch darlyn wipes. She denies any dark tarry stools or milena blood. She denies any persistent weakness or dizziness. She does not have any pain. No chest pain no difficulty breathing, no shortness of breath. She denies any abdominal pain or pressure. Upper endoscopy and colonoscopy performed later today. Repeat hemoglobin performed this morning is stable at 9.6. Objective: Vitals (See below) VITAL SIGNS: Please see below. GENERAL: She was interviewed and examined in her hospital room. Patient was found to be laying in her hospital bed comfortably in no acute distress. She was alert and oriented and able to answer questions appropriately. HEENT: Normocephalic, atraumatic, EOMI, no scleral icterus, some conjunctival pallor noted. His membranes are moist. CARDIOVASCULAR: Regular rate and rhythm, normal S1 and S2 no murmurs auscultated RESPIRATORY: Clear to auscultation bilaterally without any wheezes rales or rhonchi, good air movement ABDOMINAL: Obese, soft, nontender, nondistended, no organomegaly EXTREMITIES: No lower extremity edema noted or calf tenderness bilaterally NEUROLOGICAL: Awake alert and oriented 3 PSYCHOLOGICAL: Mood and affect are appropriate given patient's current clinical condition Assessment and plan: Patient is a 63-year-old female with a past medical history of [place] PD/Asthma, HTN, Neuropathic pain, GERD who presented to the emergency room with complaints of shortness of breath with exertion and lightheadedness. Patient was admitted to the hospitalist service for symptomatic anemia, suspected to be from a GI bleed. Gastroenterology was called on consultation. #Symptomatic anemia - likely 2/2 GI source Presented to the emergency room with complaints of symptomatic anemia described dizziness and shortness of breath with exertion Currently, patient remains hemodynamically stable. Hemoglobin has improved appropriately after 4 units of PRBC, has remained stable at around 10. This morning, H/H of 9.6/32.4. Plan to transfuse patient another 2 units should her hemoglobin fell below 8. Will continue to follow hemoglobin trend Gastroenterology has been consulted and we appreciate their input. She is status post bowel prep, plan for upper endoscopy and colonoscopy later this afternoon. #COPD / Asthma c/w Inhaled therapy as ordered #HTN BP remains well controlled c/w Lisinopril with holding parameters #DLP c/w Rosuvastatin #Restless leg syndrome c/w Ropinirole #Neuropathic pain c/w Pregabalin #GERD c/w Protonix Disposition: Disparate discharge following the results of upper endoscopy and colonoscopy to be performed later this afternoon. DVT prophylaxis c/w TEDs / Sequentials VS, I&O, 24H, Fishbone Vital Signs/I&O Vital Signs Date Time Temp Pulse Resp B/P (MAP) Pulse Ox O2 Delivery O2 Flow Rate FiO2 05/24/19 08:00 98.1 75 18 149/74 (99) 95 05/22/19 00:47 Room Air I&O- Last 24 Hours up to 6 AM 05/24/19 06:00 Intake Total 6310 ml Output Total 1700 ml Balance 4610 ml Laboratory Data 24H LABS Laboratory Tests 2 05/24/19 07:33: Immature Granulocyte % (Auto) 0.6, White Blood Count 4.8, Red Blood Count 4.30, Hemoglobin 9.6L, Hematocrit 32.4L, Mean Corpuscular Volume 75.3L, Mean Corpuscular Hemoglobin 22.3L, Mean Corpuscular Hemoglobin Concent 29.6L, Red Cell Distribution Width 26.0H, Platelet Count 235, Neutrophils (%) (Auto) 75.8H, Lymphocytes (%) (Auto) 11.8L, Monocytes (%) (Auto) 7.8H, Eosinophils (%) (Auto) 3.6H, Basophils (%) (Auto) 0.4, Neutrophils # (Auto) 3.6, Lymphocytes # (Auto) 0.6L, Monocytes # (Auto) 0.4, Eosinophils # (Auto) 0.2, Basophils # (Auto) 0.0, Nucleated Red Blood Cells % (auto) 0.0, Anion Gap 7L, Glomerular Filtration Rate > 60.0, Blood Urea Nitrogen 5L, Creatinine 0.86, Sodium Level 144, Potassium Level 3.6, Chloride Level 115H, Carbon Dioxide Level 22, Calcium Level 7.9L, Magnesium Level 2.0 CBC/BMP Laboratory Tests 05/24/19 07:33 Red Blood Count 4.30, Mean Corpuscular Volume 75.3 L, Mean Corpuscular Hemoglobin 22.3 L, Mean Corpuscular Hemoglobin Concent 29.6 L, Red Cell Distribution Width 26.0 H, Neutrophils (%) (Auto) 75.8 H, Lymphocytes (%) (Auto) 11.8 L, Monocytes (%) (Auto) 7.8 H, Eosinophils (%) (Auto) 3.6 H, Basophils (%) (Auto) 0.4, Neutrophils # (Auto) 3.6, Lymphocytes # (Auto) 0.6 L, Monocytes # (Auto) 0.4, Eosinophils # (Auto) 0.2, Basophils # (Auto) 0.0, Calcium Level 7.9 L Microbiology Microbiology 05/22/19 Stool Occult Blood (SREE) - Final, Complete GME ATTESTATION GME ATTESTATION My faculty preceptor for this patient encounter was physically present during the encounter and was fully available. All aspects of the patient interview, examination, medical decision making process, and medical care plan development were reviewed and approved by the faculty preceptor. The faculty preceptor is aware and concurs with the plan as stated in the body of this note and will attest to such by his/her cosignature. ATTENDING NOTE I, Tete Arora, have independently examined this patient and performed my own physical exam, as well as reviewed the documentation and edited where necessary. I have discussed in detail with the resident / student the findings and plan of treatment as documented by the resident / student and edited their note. I agree with their findings and treatment plan and have edited their documentation. I will continue to follow the patient during this hospital stay. HA LARIOS DO May 24, 2019 12:32 TETE ARORA MD May 24, 2019 15:24
--- NOTE | 2019-05-24 13:47 | ROOR ---
Patient Name: Violetta Mckeon Procedure Date: 05/24/2019 12:15 PM Date of : 1955 Age: 63 Room: [facility] Gender: Female Note Status: Finalized Procedure: Upper GI endoscopy Indications: Iron deficiency anemia secondary to chronic blood loss, Iron deficiency anemia Providers: Baldo Ruvalcaba MD Referring MD: 2. Inpatient 2. Inpatient Requesting Provider: Medicines: Monitored Anesthesia Care Complications: No immediate complications. Procedure: Pre-Anesthesia Assessment: - Prior to the procedure, a History and Physical was performed, and patient medications and allergies were reviewed. The patient is competent. The risks and benefits of the procedure and the sedation options and risks were discussed with the patient. All questions were answered and informed consent was obtained. Patient identification and proposed procedure were verified by the physician, the nurse and the anesthesiologist in the procedure room. Mental Status Examination: alert and oriented. Airway Examination: normal oropharyngeal airway and neck mobility. Respiratory Examination: clear to auscultation. CV Examination: normal. Prophylactic Antibiotics: The patient does not require prophylactic antibiotics. Prior Anticoagulants: The patient has taken no previous anticoagulant or antiplatelet agents. ASA Grade Assessment: III - A patient with severe systemic disease. After reviewing the risks and benefits, the patient was deemed in satisfactory condition to undergo the procedure. The anesthesia plan was to use monitored anesthesia care (MAC). Immediately prior to administration of medications, the patient was re-assessed for adequacy to receive sedatives. The heart rate, respiratory rate, oxygen saturations, blood pressure, adequacy of pulmonary ventilation, and response to care were monitored throughout the procedure. The physical status of the patient was re-assessed after the procedure. The Endoscope was introduced through the mouth, and advanced to the second part of duodenum. The upper GI endoscopy was accomplished without difficulty. The patient tolerated the procedure well. Findings: LA Grade B (one or more mucosal breaks greater than 5 mm, not extending between the tops of two mucosal folds) esophagitis with no bleeding was found 32 to 34 cm from the incisors. ( biopsies were not done due to other findings). One non-bleeding cratered gastric ulcer with a clean ulcer base (Leon Class III) was found at the pylorus. The lesion was 25 mm in largest dimension. Biopsies were taken with a cold forceps for histology. Verification of patient identification for the specimen was done by the physician and nurse using the patient's name, date and medical record number. Estimated blood loss was minimal. Localized nodular mucosa was found in the duodenal bulb and in the second portion of the duodenum. Biopsies were taken with a cold forceps for histology. Impression: - LA Grade B reflux esophagitis. - Non-bleeding gastric ulcer with a clean ulcer base (Leon Class III). Biopsied. - Nodular mucosa in the duodenal bulb and in the second portion of the duodenum. Biopsied. Recommendation: - Patient has a contact number available for emergencies. The signs and symptoms of potential delayed complications were discussed with the patient. Return to normal activities tomorrow. Written discharge instructions were provided to the patient. - Clear liquid diet for 1 day, then advance as tolerated to mechanical soft diet. - Continue present medications. - Use Protonix (pantoprazole) 40 mg IV BID for 1 day. - Await pathology results. - Perform a CT scan (computed tomography) of abdomen with contrast based on the biopsy results at appointment to be scheduled. - Repeat upper endoscopy in 2 months to check healing and for surveillance based on pathology results. - Telephone GI clinic for pathology results in 2 weeks. - Return to primary care physician. Baldo Ruvalcaba MD Baldo Ruvalcaba MD 05/24/2019 1:46:55 PM Electronically signed by Baldo Ruvalcaba MD Number of Addenda: 0 Note Initiated On: 05/24/2019 12:15 PM Estimated Blood Loss: Estimated blood loss was minimal.
[2019-05-24] MEDS: ACETAMINOPHEN TAB 650MG DOSE (2X325MG) PO PRN ×2 (13:57→22:54)
--- NOTE | 2019-05-24 15:38 | ROOR ---
Patient Name: Violetta Mckeon Procedure Date: 05/24/2019 12:14 PM Date of : 1955 Age: 63 Room: [facility] Gender: Female Note Status: Finalized Procedure: Colonoscopy Indications: Heme positive stool, Iron deficiency anemia secondary to chronic blood loss, Iron deficiency anemia Providers: Baldo Ruvalcaba MD Referring MD: 2. Inpatient 2. Inpatient Requesting Provider: Medicines: Monitored Anesthesia Care Complications: No immediate complications. Procedure: Pre-Anesthesia Assessment: - Prior to the procedure, a History and Physical was performed, and patient medications and allergies were reviewed. The patient is competent. The risks and benefits of the procedure and the sedation options and risks were discussed with the patient. All questions were answered and informed consent was obtained. Patient identification and proposed procedure were verified by the physician, the nurse and the anesthesiologist in the procedure room. Mental Status Examination: alert and oriented. Airway Examination: normal oropharyngeal airway and neck mobility. Respiratory Examination: clear to auscultation. CV Examination: normal. Prophylactic Antibiotics: The patient does not require prophylactic antibiotics. Prior Anticoagulants: The patient has taken no previous anticoagulant or antiplatelet agents. ASA Grade Assessment: II - A patient with mild systemic disease. After reviewing the risks and benefits, the patient was deemed in satisfactory condition to undergo the procedure. The anesthesia plan was to use monitored anesthesia care (MAC). Immediately prior to administration of medications, the patient was re-assessed for adequacy to receive sedatives. The heart rate, respiratory rate, oxygen saturations, blood pressure, adequacy of pulmonary ventilation, and response to care were monitored throughout the procedure. The physical status of the patient was re-assessed after the procedure. The Colonoscope was introduced through the anus and advanced to the terminal ileum, with identification of the appendiceal orifice and IC valve. The colonoscopy was performed without difficulty. The patient tolerated the procedure well. The quality of the bowel preparation was good. The terminal ileum, ileocecal valve, appendiceal orifice, and rectum were photographed. Scope insertion time was 4 minutes. Scope withdrawal time was 9 minutes. The total duration of the procedure was 14 minutes. Findings: The perianal and digital rectal examinations were normal. The terminal ileum appeared normal. A 6 mm polyp was found in the transverse colon. The polyp was sessile. The polyp was removed with a cold biopsy forceps. Resection and retrieval were complete. Verification of patient identification for the specimen was done by the physician and nurse using the patient's name, date and medical record number. Estimated blood loss was minimal. Non-bleeding external and internal hemorrhoids were found during retroflexion. The hemorrhoids were large. Impression: - The examined portion of the ileum was normal. - One 6 mm polyp in the transverse colon, removed with a cold biopsy forceps. Resected and retrieved. - Non-bleeding external and internal hemorrhoids. Recommendation: - Patient has a contact number available for emergencies. The signs and symptoms of potential delayed complications were discussed with the patient. Return to normal activities tomorrow. Written discharge instructions were provided to the patient. - Clear liquid diet for 1 day, then advance as tolerated to mechanical soft diet or regular diet ( due to large ulcer in stomach noted in EGD). - Continue present medications. - Await pathology results. - Repeat colonoscopy in 5 years for surveillance based on pathology results. - Telephone GI clinic for pathology results in 2 weeks. - Return to primary care physician. Baldo Ruvalcaba MD Baldo Ruvalcaba MD 05/24/2019 3:37:47 PM Electronically signed by Baldo Ruvalcaba MD Number of Addenda: 0 Note Initiated On: 05/24/2019 12:14 PM Estimated Blood Loss: Estimated blood loss was minimal.
[2019-05-24 16:00] VITALS: BP 162/80
[2019-05-24] MEDS: rOPINIRole 1MG TAB PO SCH (19:47)
[2019-05-24 20:00] VITALS: BP 146/80
[2019-05-25] VITALS: BP 150/82
[2019-05-25 04:00] VITALS: BP 136/68
[2019-05-25 05:46] LABS: HEMATOCRIT 30.6 % (36.0-47.0); HEMOGLOBIN 9.3 g/dl (12.0-15.5); MEAN CORPUSCULAR HEMOGLOBIN 22.6 pg (27.0-33.0); MEAN CORPUSCULAR HGB CONC 30.4 g/dl (32.0-36.5); MEAN CORPUSCULAR VOLUME 74.3 fl (80.0-96.0); PLATELET COUNT, AUTOMATED 233 10^3/uL (150-450); RED BLOOD COUNT 4.12 10^6/uL (4.00-5.40); WHITE BLOOD COUNT 7.8 10^3/uL (4.0-10.0)
[2019-05-25 06:07] LABS: BLOOD UREA NITROGEN 4 MG/DL (7-18); CALCIUM LEVEL 7.7 MG/DL (8.8-10.2); CARBON DIOXIDE LEVEL 23 MEQ/L (21-32); CHLORIDE LEVEL 114 MEQ/L (98-107); CREATININE FOR GFR 0.88 MG/DL (0.55-1.30); GLOMERULAR FILTRATION RATE > 60.0 (>45); GLUCOSE, FASTING 85 MG/DL (70-100); POTASSIUM SERUM 3.8 MEQ/L (3.5-5.1); SODIUM LEVEL 143 MEQ/L (136-145)
[2019-05-25] MEDS ORDERED: POTASSIUM CHLORIDE 10 MEQ SR TABLET PO ONE (06:30)
[2019-05-25 08:00] VITALS: BP 140/62
[2019-05-25] MEDS ORDERED: SLF 3 ML SYR IV PRN (08:45)
[2019-05-25] MEDS: PANTOPRAZOLE 40MG INJ (PROTONIX) (C9113) IV SCH (09:08)
[2019-05-25] MEDS: THIAMINE HCL 200 MG/2 ML VIAL (J3411) IV SCH (09:08)
[2019-05-25 09:09] VITALS: BP 140/62
[2019-05-25] MEDS: FOLIC ACID 1MG/0.2ML VIAL SC SCH (09:09)
[2019-05-25] MEDS: ROSUVASTATIN 10 MG TAB (CRESTOR) PO SCH (09:09)
[2019-05-25] MEDS: LISINOPRIL 10 MG TAB PO SCH (09:09)
[2019-05-25 12:00] VITALS: BP 149/75
[2019-05-25] MEDS ORDERED: PANT40TA3 PO (12:40)
--- NOTE | 2019-05-25 13:49 | DS.PDOC ---
Discharge Summary General Date of Admission May 21, 2019 at 23:51 Date of Discharge 05/25/19 Primary Care Physician: Montserrat Crowe Attending Physician: TETE TELLEZ MD Specialist/Consultants Involve: BEL FLOREZ MD Discharge Summary PROCEDURES PERFORMED DURING STAY: Upper endoscopy and colonoscopy, performed by on 05/24/19 ADMITTING DIAGNOSES: Symptomatic microcytic anemia Possible upper gastrointestinal bleed GERD COPD Asthma Hypertension Restless leg syndrome Neuropathic pain DISCHARGE DIAGNOSES: Symptomatically anemia, likely secondary to GI source COPD/asthma Hypertension Dyslipidemia 6 syndrome Neuropathic pain GERD COMPLICATIONS/CHIEF COMPLAINT: Gastrointenstinal Hemorrhage;Symptomatic Anemia. HISTORY OF PRESENT ILLNESS: Patient is a 63-year-old female with pertinent past medical history of COPD, asthma, GERD, hypertension, and neuropathic pain, who presented to the emergency department on the evening of 05/21 with the chief complaints of progressive shortness of breath over the last month with accompanying lightheadedness, generalized weakness, and epigastric discomfort. Patient reported that she used to be able to walk roughly half a block on flat ground before becoming short of breath, but over the last month, she was getting short of breath after about 10 feet. Patient has an inhaled corticosteroid inhaler medication at home for her asthma, as well as a combination inhaler long-acting anticholinergic/long-acting bronchodilator for her COPD, as well as a rescue albuterol inhaler. Patient reported an increased use of her rescue inhaler recently. The lightheadedness she was experiencing first arose last week and was especially pronounced on the date of admission. She was getting lightheaded whenever she would stand from a seated/lying position. She denied any syncope, but stated on multiple occasions while experiencing the lightheadedness, she feels like she could pass out. Patient described her epigastric discomfort as a gas/pressure buildup that "hurts like hell." The discomfort spread laterally from the epigastric region over the ribs bilaterally, and is constant in nature. Patient had tried baking soda and Pepto-Bismol to alleviate her epigastric discomfort but any benefit was very short-lived. Any appreciable activity worsens her shortness of breath. Patient had felt nauseated and vomited 3 times while in the emergency department. At time of admission exam, patient was not nauseated. Patient denied hematemesis and hemoptysis. Patient reported never having a constellation of symptoms like this before. Patient denies any recent illness, recent change in medication, recent sick contacts, and recent extensive travel. Patient was acc ompanied by her daughter Zahra. Patient's primary care provider is Montserrat Crowe NP, who is affiliated with Dr. Price's office. Patient follows regularly with pulmonology as outpatient, seeing JASSI Ulloa, who is affiliated with Dr. Feroz Gage. In the emergency department, patient received EKG and chest x-ray that were unremarkable. Initial CBC showed microcytic anemia with hemoglobin of 6.3. On review of patient's lifetime summary, hemoglobin baseline appears roughly 11-12. CMP showed mild elevation in BNP and T4. Patient received a single administration of 40 mg IV Protonix, had a type and screen performed, and a stool guaiac test was strongly blue (suggesting upper GI bleed). Patient was admitted to the progressive care unit under the care and medical management of the hospitalist team. HOSPITAL COURSE: Patient received 2 units of blood while on the unit. Repeat hemoglobin was found to be 7.8. At that time, patient noted improvement in her dizziness and shortness of breath. An additional 2 units of blood was ordered. Patient was continued on IV Protonix for GI prophylaxis. Gastric urology was consulted regarding her insidious bleed. Patient was evaluated and scheduled for an endoscopy and colonoscopy on 05/24/19. On colonoscopy, a single 6 million polyp in the transverse colon was removed and is pending pathology. Nonbleeding external and internal hemorrhoids were noted. Endoscopy was significant for a grade B reflux esophagitis. Nonbleeding gastric ulcer with clean ulcer base which was biopsied. Nodular mucosa in the duodenal bulb and second portion of duodenum, which was also biopsied. Patient returned to the floor and allowed clear liquids. The date of discharge, 05/25/19, patient was transitioned to hepatitis tolerated. No difficulties with reintroduction of food. Discharge was discussed with the patient as well as follow-up plan including appointment with gastroenterology and primary care provider. Patient was agreeable with the plan. All questions regarding discharge were answered. DISCHARGE MEDICATIONS: Please see below. ALLERGIES: Please see below. PHYSICAL EXAMINATION ON DISCHARGE: VITAL SIGNS: Please see below. GENERAL: Patient was interviewed and examined her hospital room this morning. Patient was found to be lying comfortable in bed in no acute distress. HEENT: Normocephalic, atraumatic, EOMI, moist mucosa, no scleral icterus or conjunctival pallor NECK: Supple, no JVD or tracheal deviation CARDIOVASCULAR EXAMINATION: Regular rate and rhythm, normal S1 and S2 RESPIRATORY EXAMINATION: There to auscultation bilaterally free of any obvious rales or rhonchi ABDOMINAL EXAMINATION: Soft, nontender, nondistended, no rigidity or guarding. No organomegaly appreciated. EXTREMITIES: Able to move also is equally bilaterally. No lower extremity edema or calf tenderness bilaterally. SKIN: No obvious skin rashes or bruising. NEUROLOGICAL EXAMINATION: Alert and oriented 3, no focal neurologic deficits PSYCHIATRIC EXAMINATION: Mood and affect are appropriate given patient's current clinical condition. LABORATORY DATA: Please see below. IMAGING: Chest x-ray (05/21/19): No acute cardiopulmonary disease Upper endoscopy (05/24/19): LA grade B reflux esophagitis. Nonbleeding gastric ulcer with clean ulcer base (Millard class III). Biopsied. Nodular mucosa of the duodenal bulb and second portion of duodenum. Biopsied. Colonoscopy (05/25/19): Examined portion of the ileum was normal. 16 noted a polyp in the transverse colon was removed with a cold biopsy forcep. Resected and retrieved. Nonbleeding external and internal hemorrhoids noted. PROGNOSIS: Good ACTIVITY: As tolerated DIET: As tolerated DISPOSITION: Discharge home with self-care Please follow-up with GI clinic for pathology results in 2 weeks. Repeat upper endoscopy recommended in 2 months to evaluate healing and surveillance based on pathology results. Please follow-up with primary care provider in 5-7 days. Please return to the hospital if you experience any problems Thank you for allowing us to participate in your care. DISCHARGE CONDITION: Stable TIME SPENT ON DISCHARGE: Greater than 35 minutes. Vital Signs/I&Os Vital Signs Date Time Temp Pulse Resp B/P (MAP) Pulse Ox O2 Delivery O2 Flow Rate FiO2 05/25/19 12:00 98.1 72 18 149/75 (99) 97 05/22/19 00:47 Room Air I&O- Last 24 Hours up to 6 AM 05/25/19 05:59 Intake Total 2340 ml Output Total 2600 ml Balance -260 ml Laboratory Data Labs 24H Laboratory Tests 2 05/25/19 04:58: Nucleated Red Blood Cells % (auto) 0.0, Anion Gap 6L, Glomerular Filtration Rate > 60.0, Blood Urea Nitrogen 4L, Creatinine 0.88, Sodium Level 143, Potassium Level 3.8, Chloride Level 114H, Carbon Dioxide Level 23, Calcium Level 7.7L CBC/BMP Laboratory Tests 05/25/19 04:58 Red Blood Count 4.12, Mean Corpuscular Volume 74.3 L, Mean Corpuscular Hemoglobin 22.6 L, Mean Corpuscular Hemoglobin Concent 30.4 L, Red Cell Distribution Width 26.9 H, Calcium Level 7.7 L Microbiology Microbiology 05/22/19 Stool Occult Blood (SREE) - Final, Complete Discharge Medications Scheduled Aspirin (Aspirin EC) 81 Mg Tablet.dr, 81 MG PO DAILY, (Reported) Calcium Carbonate (Tums) 200 Mg Tab.chew, 500 MG PO PC, (Reported) Fluticasone Furoate (Arnuity Ellipta) 200 Mcg Blst.w.dev, 1 PUFF INH DAILY, (Reported) Lisinopril (Lisinopril) 10 Mg Tablet, 10 MG PO DAILY, (Reported) Meloxicam (Meloxicam) 15 Mg Tablet, 15 MG PO DAILY, (Reported) Pantoprazole Sodium (Pantoprazole Sodium) 40 Mg Tablet.dr, 40 MG PO BID Pregabalin (Pregabalin) 75 Mg Capsule, 75 MG PO BID, (Reported) Ropinirole HCl (Ropinirole HCl) 1 Mg Tablet, 1 MG PO QHS, (Reported) Rosuvastatin Calcium (Rosuvastatin Calcium) 20 Mg Tablet, 20 MG PO DAILY, (Reported) Sodium Bicarbonate (Sodium Bicarbonate) 454 Gm Powder, 1 TSP PO WM, (Reported) MIXED WITH 4 OZ WATER Tiotropium Br/Olodaterol HCl (Stiolto Respimat Inhal [place]) 4 Gm Mist.inhal, 2 PUFF INH DAILY, (Reported) Allergies Coded Allergies: No Known Allergies (Verified , 02/14/03) GME ATTESTATION GME ATTESTATION My faculty preceptor for this patient encounter was physically present during the encounter and was fully available. All aspects of the patient interview, examination, medical decision making process, and medical care plan development were reviewed and approved by the faculty preceptor. The faculty preceptor is aware and concurs with the plan as stated in the body of this note and will attest to such by his/her cosignature. ATTENDING NOTE I, Tete Tellez, have independently examined this patient and performed my own physical exam, as well as reviewed the documentation and edited where necessary. I have discussed in detail with the resident / student the findings and plan of treatment as documented by the resident / student and edited their note. I agree with their findings and treatment plan and have edited their documentation. I will continue to follow the patient during this hospital stay. Time spent on discharge 35 minutes HA LARIOS DO May 25, 2019 13:49 TETE TELLEZ MD May 25, 2019 15:22
[2019-05-25] MEDS ORDERED: SLF 3 ML SYR IV SCH (14:00)
[2019-06-15] MEDS ORDERED: CHLO25TA PO (11:19)
[2019-06-15] MEDS ORDERED: FAMO20TA4 PO (11:19)
[2019-07-05] MEDS ORDERED: PRED50TA PO (15:26)
[2019-07-05] MEDS ORDERED: ONDA8TAB7 PO (16:55)
[2019-07-05] MEDS ORDERED: PROC10TA4 PO (16:55)
== END 2019-05-25 14:47 | disposition home or self-care (01) | DRG 812 ==
LOC: M ED 18:26 → M ED INP 23:51 → M PCU 05-22 01:15
PROVIDERS: ADMIT Internal Medicine; ATTEND Internal Medicine
PROC: 30233N1 Transfusion of Nonautologous Red Blood Cells into Peripheral Vein, Percutaneous Approach (ICD-10-PCS; principal; 2019-05-22)
PROC: 0DB78ZX Excision of Stomach, Pylorus, Via Natural or Artificial Opening Endoscopic, Diagnostic (ICD-10-PCS; 2019-05-24)
PROC: 0DBL8ZX Excision of Transverse Colon, Via Natural or Artificial Opening Endoscopic, Diagnostic (ICD-10-PCS; 2019-05-24)
DX: D50.0 Iron deficiency anemia secondary to blood loss (chronic) (principal); K92.2 Gastrointestinal hemorrhage, unspecified; K25.9 Gastric ulcer, unspecified as acute or chronic, without hemorrhage or perforation; J44.9 Chronic obstructive pulmonary disease, unspecified; J45.909 Unspecified asthma, uncomplicated; K21.0 Gastro-esophageal reflux disease with esophagitis; I10 Essential (primary) hypertension; G62.9 Polyneuropathy, unspecified; Z79.891 Long term (current) use of opiate analgesic; F17.290 Nicotine dependence, other tobacco product, uncomplicated; I95.1 Orthostatic hypotension; G25.81 Restless legs syndrome; Z79.82 Long term (current) use of aspirin; Z79.899 Other long term (current) drug therapy; K63.5 Polyp of colon; E78.5 Hyperlipidemia, unspecified; K44.9 Diaphragmatic hernia without obstruction or gangrene

== ENCOUNTER → 2019-06-12 | Outpatient (CLI) | payer MEDICARE ==
[~2019-06-12] MED LIST changes: +ARNU1INH3 INH; +ASPI81TA26 PO; +CHLO25TA PO; +FAMO20TA4 PO; +LISI10TA4 PO; +MELO15TA28 PO; +PANT40TA3 PO; +PREG75CA2 PO; +ROPI1TAB PO; +ROSU20TA5 PO; +SODIPOW PO; +STIO1AER INH; +TUMS500C PO
[2019-06-12 17:23] LABS: BLOOD UREA NITROGEN 40 MG/DL (7-18); CREATININE FOR GFR 1.14 MG/DL (0.55-1.30); GLOMERULAR FILTRATION RATE 51.2 (>45)
[2019-06-12 17:28] LABS: H PYLORI QUALITATIVE IgG DETECTED (NEGATIVE)
== END ==
LOC: M ADAMS 14:22
PROVIDERS: ATTEND Internal Medicine Gastroenterology
DX: C16.3 Malignant neoplasm of pyloric antrum (principal)

== ENCOUNTER → 2019-06-14 | Outpatient (REF) | payer MEDICARE | LOC: M LAB REF 12:32 | PROVIDERS: ATTEND Nurse Practitioner Adult Health | DX: D64.9 Anemia, unspecified (principal) ==

== ENCOUNTER → 2019-06-16 | Outpatient (REF) | payer MEDICARE | LOC: M LAB REF 11:34 | PROVIDERS: ATTEND Nurse Practitioner Family | DX: C88.4 Extranodal marginal zone B-cell lymphoma of mucosa-associated lymphoid tissue [MALT-lymphoma] (principal) ==

== ENCOUNTER → 2019-06-18 | Outpatient (CLI) | payer MEDICARE ==
[~2019-06-18] MED LIST changes: +GASTROGRAFIN SOLUTION 30ML (Q9963) As Ordered ONE; +ISOVUE-370 76% 100ML VIAL (Q9967) As Ordered ONE
--- NOTE | 2019-06-19 08:51 | REP ---
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 Comparison is the low-dose lung screening chest CT dated 12/21/2018. There is no mediastinal, hilar or axillary lymphadenopathy. There are no infiltrates. There are no pleural effusions. There are no lung nodules or masses. There is a hiatal hernia containing the gastric fundus measuring 8.3 cm in diameter. There appears to be wall thickening of the portion of the stomach within the hiatal hernia, however, this could be artifact from non distension. The thoracic aorta is unremarkable. Cardiac size is normal. There is no pericardial effusion. There are no lytic, blastic or destructive skeletal changes. Impression: Essentially negative CT scan of the chest except for a hiatal hernia as described. There is wall thickening of the gastric fundus within the hiatal hernia, however this could be artifact from non distension. Electronically Signed by Taiwo Teran MD 06/19/2019 08:42 A
--- NOTE | 2019-06-19 08:59 | REP ---
CT of the abdomen pelvis with IV and bowel contrast: There are no comparisons. 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 Within the visualized lower lung ward. There is a hiatal hernia containing the gastric fundus. There is apparent wall thickening of the gastric fundus within the hiatal hernia, however, this could be artifact from under distension. There is wall thickening of the distal stomach measuring up to 2.1 cm in depth. There is hepato steatosis. There are no hepatic masses. There are surgical clips in the gallbladder fossa. The pancreas and spleen are unremarkable. The adrenals are unremarkable. There is a right renal cortical cyst at the upper pole measuring 3.5 cm in diameter. This is a Bosniak type 1 cyst. There are no solid renal masses. There are no calculi are hydronephrosis. The kidneys are otherwise unremarkable. The abdominal aorta is unremarkable. There is no periaortic adenopathy or mass. There is no mesenteric adenopathy. There is no ascites. Pelvis: The uterus and adnexa are unremarkable. There is no ascites. There is no adenopathy. The appendix is unremarkable. The pelvic bowel loops are unremarkable. There are no lytic, blastic or destructive skeletal changes. There is degenerative disc disease in the lumbar spine at L 03/04 L4-5. Impression: There is no adenopathy or ascites. There is wall thickening of the distal stomach measuring up to 2.1 cm in depth. There is questionable wall thickening of the gastric fundus within the hiatal hernia. This could be artifact from non distension. There is a right renal Bosniak type 1 cortical cyst. Hepato steatosis. Degenerative disc disease in the lumbar spine. Electronically Signed by Taiwo Teran MD 06/19/2019 08:50 A
== END ==
LOC: M RAD 16:17
PROVIDERS: ATTEND Internal Medicine Medical Oncology
DX: C88.4 Extranodal marginal zone B-cell lymphoma of mucosa-associated lymphoid tissue [MALT-lymphoma] (principal); K44.9 Diaphragmatic hernia without obstruction or gangrene
CPT/HCPCS: 71260; 74177; Q9963; Q9967

== ENCOUNTER → 2019-06-23 | Outpatient (CLI) | payer MEDICAID, MEDICARE ==
[~2019-06-23] MED LIST changes: -GASTROGRAFIN SOLUTION 30ML (Q9963) As Ordered ONE; -ISOVUE-370 76% 100ML VIAL (Q9967) As Ordered ONE
--- NOTE | 2019-06-23 15:42 | REP ---
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 Comparisons: Comparison CT chest, abdomen, and pelvis June 18, 2019. TECHNIQUE: 48 minutes following the intravenous injection of a 8.65 mCi dose of F-18 FDG, three-dimensional PET scintigraphy is acquired from the skull base to the proximal thighs. Triplanar noncontrast CT scanning is acquired through the same anatomic range for attenuation correction, and image registration with scan parameters optimized to minimize radiation exposure to the patient. PET scintigraphy and CT datasets were fused and displayed on a workstation with multiplanar and projection display capability. PET/CT Findings: There is normal variant skeletal muscle uptake in the neck. Head and neck soft tissues are otherwise unremarkable. There is no evidence of hypermetabolic adenopathy. A hiatal hernia is noted. No abnormal hypermetabolic uptake is seen in the chest. In the abdomen and pelvis uptake in the liver and spleen are normal and homogeneous. There are two areas of abnormal uptake in the gastrointestinal tract. First of these is a fairly large area in the gastroduodenal junction region where recent CT study shows mural thickening. This area spans approximately 3.8 cm in greatest dimension. Maximum standard uptake value is 8.53 here. The second area of abnormal gastrointestinal uptake involves a loop of what appears to be mid jejunum. Hypermetabolic uptake is seen here higher than background mucosal gastrointestinal uptake. Maximum standard uptake value in this region is 6.99. Background uptake in this patient is between 2.5 and 4. In retrospect, an area of mural thickening in a corresponding jejunal loop is visible on the recent CT study of the abdomen June 18, 2019. Lastly there is a single reid focus of interest in the mesenteric fat. Maximum standard uptake value in this small reid focus is 2.55. The lymph node measures 8 x 15 x 17 mm. No other hypermetabolic reid uptake is seen. No abnormal skeletal uptake is observed. Impression: There are two foci of upper gastrointestinal tract mural disease, the first at the gastroduodenal junction, and the second and mid jejunum. These are hypermetabolic. There is a 17 mm small bowel mesenteric lymph node showing minimally hypermetabolic uptake as well. Electronically Signed by Joe Heller MD 06/23/2019 05:22 P
== END ==
LOC: M PLARAD 08:53
PROVIDERS: ATTEND Internal Medicine Medical Oncology
DX: C85.88 Other specified types of non-Hodgkin lymphoma, lymph nodes of multiple sites (principal)
CPT/HCPCS: 78815; A9552

== ENCOUNTER → 2019-07-06 | Outpatient (CLI) | payer MEDICARE ==
[~2019-07-06] MED LIST changes: +ONDA8TAB7 PO; +PRED50TA PO; +PROC10TA4 PO
--- NOTE | 2019-07-06 22:14 | ECHO ---
DATE OF PROCEDURE: 07/06/2019 REFERRING PHYSICIAN: Alicai Gold MD INDICATION: Chemotherapy. HEIGHT: 162 cm WEIGHT: 98 kg DIMENSIONS: IVS: 1.1 LV: 4.7 LVPW: 1.2 LA: 3.4 Aorta: 2.7 RV: 3.1 IVC: 1.8 Left atrial volume index: 24 Mitral E wave velocity: 100, A wave: 53 E prime septal: 8.6 E prime lateral: 10.9 FINDINGS: The study is of acceptable technical quality. The patient is in sinus rhythm. Left ventricle is normal size and systolic function. Estimated left ventricular ejection fraction (LVEF) is 60-65%. Computer calculated LVEF is 52% which in my opinion represents underestimation of true systolic function. Right ventricle is normal. Both atria appear normal. Aortic mitral and tricuspid valves were reasonably well seen and appear normal. Pulmonic valve was poorly visualized. There is no pericardial effusion. Inferior vena cava is normal size. Aortic root, aortic arch and visualized segment of abdominal aorta all appear normal. Doppler interrogation of aortic valve reveals no stenosis or insufficiency. Same applies for mitral valve. There is trace tricuspid insufficiency. Calculated pulmonary artery pressure is in mid 20s corresponding to normal values. Mitral inflow pattern and tissue Doppler imaging of mitral annulus reveal normal diastolic function. CONCLUSION 1. Study is of acceptable technical quality. 2. Normal left ventricle (LV) size and systolic function, normal diastolic function. Borderline left ventricular hypertrophy (LVH). 3. No significant valvular disease. 4. Likely normal central venous pressure and normal pulmonary artery pressure. COMMENT Subacute bacterial endocarditis (SBE) prophylaxis is not recommended.
== END ==
LOC: M CARPUL 10:17
PROVIDERS: ATTEND Internal Medicine Medical Oncology
DX: I51.7 Cardiomegaly (principal); C88.4 Extranodal marginal zone B-cell lymphoma of mucosa-associated lymphoid tissue [MALT-lymphoma]

== ENCOUNTER → 2019-07-07 | Outpatient (CLI) | payer MEDICARE ==
[~2019-07-07] MED LIST changes: +HEPARIN 1,000 UNITS/ML 10ML VIAL (FOR RADIOLOGY& DIALYSIS ONLY) As Ordered ONE; +ISOVUE-300 61% 50ML VIAL (Q9967) As Ordered ONE; +LIDOCAINE 1% MDV 20ML VIAL As Ordered ONE; +MIDAZOLAM INJ 2 MG/2 ML VIAL (J2250) As Ordered ONE; +ceFAZolin 1GM INJ (J0690 PER 500MG) As Ordered ONE; +diphenhydrAMINE INJ 50MG/ML VIAL (J1200) As Ordered ONE; +fentaNYL 100 MCG/2 ML INJECTION (J3010) As Ordered ONE
--- NOTE | 2019-07-07 10:20 | IRHP ---
[facility] IR Pre-Procedure H & P General Date of Service: Jul 07, 2019 Procedure: Same Day Surgery Interval History and Physical I have seen the patient and reviewed last H & P performed within 30 days. There is no significant interval change. History of Present Illness Chief Complaint The patient is a 63-year-old female admitted with a reason for visit of Malt Lymphoma. PRE-PROCEDURE DIAGNOSIS: lymphoma HEART: normal rate. LUNGS: normal breathing at rest. ASA Classification ASA Classification: II-Mild systemic disease Mallampati Score: II NPO: Yes Problems with prior sedation: No Obstructive Sleep Apnea: No Plan moderate sedation Allergies Coded Allergies: No Known Allergies (Verified , 02/14/03) Home Medications Scheduled Aspirin (Aspirin EC), 81 MG PO DAILY, (Reported) Calcium Carbonate (Tums), 500 MG PO PC, (Reported) Chlorthalidone (Chlorthalidone), 25 MG PO DAILY, (Reported) Famotidine (Famotidine), 40 MG PO DAILY, (Reported) Fluticasone Furoate (Arnuity Ellipta), 1 PUFF INH DAILY, (Reported) Lisinopril (Lisinopril), 10 MG PO DAILY, (Reported) Meloxicam (Meloxicam), 15 MG PO DAILY, (Reported) Pantoprazole Sodium (Pantoprazole Sodium), 40 MG PO BID Pregabalin (Pregabalin), 75 MG PO BID, (Reported) Ropinirole HCl (Ropinirole HCl), 1 MG PO QHS, (Reported) Rosuvastatin Calcium (Rosuvastatin Calcium), 20 MG PO DAILY, (Reported) Tiotropium Br/Olodaterol HCl (Stiolto Respimat Inhal [place]), 2 PUFF INH DAILY, (Reported) Scheduled PRN Ondansetron HCl (Ondansetron HCl), 8 MG PO Q6H PRN for NAUSEA OR VOMITING Prochlorperazine Maleate (Prochlorperazine Maleate), 10 MG PO Q8H PRN for NAUSEA OR VOMITING Discontinued Medications Prednisone (Prednisone), 100 MG PO DAILY Discontinued Reason: Pt states not taking VS, I&O, 24H, Fishbone Vital Signs/I&O Vital Signs Date Time Temp Pulse Resp B/P (MAP) Pulse Ox O2 Delivery O2 Flow Rate FiO2 07/07/19 09:23 97.8 66 16 98 Room Air ANYI PORTER MD Jul 07, 2019 10:20
--- NOTE | 2019-07-07 12:10 | POST-OPPD ---
Postoperative Procedure Note Date Of Procedure: Jul 07, 2019 Time Of Procedure: 11:10 PREOPERATIVE DIAGNOSIS: lymphoma POSTOPERATIVE DIAGNOSIS: same FINDINGS: patent right IJ PROCEDURE: right side port. ready to use. SURGEON: geri ANESTHESIA: mod sed ESTIMATED BLOOD LOSS: < 5 ml COMPLICATIONS: none POSTOPERATIVE CONDITION: same ANYI PORTER MD Jul 07, 2019 12:10
[2019-07-07 13:10] VITALS: BP 151/91
--- NOTE | 2019-07-07 15:19 | REP ---
IR Ultrasound and fluoroscopy-guided port placement. IR Ultrasound of the neck. IR Moderate sedation. Clinical information: Lymphoma. Physician: Dr. Bradley. Procedure: The patient was advised of the benefits, risks, and alternatives of the procedure and informed consent was obtained. A time-out was performed with verification of the patient's name, MRN, site of procedure and type of procedure to be performed. The patient was positioned in the supine position on the angiographic table. The site was prepped and draped in the usual sterile fashion. Moderate sedation was performed by the physician including the presence of an independent trained observer who assisted and monitored the patient's level of consciousness and physiologic status. Following the administration of Fentanyl and Versed, the physician spent 45 minutes of continuous face to face time with the patient. Ultrasound of the neck reveals a patent and compressible right internal jugular vein. A construction safety consultant radiograph reveals no gross abnormality. The neck and anterior chest wall were anesthetized with lidocaine. The right internal jugular vein was accessed using a microintroducer needle under ultrasound guidance, via a lateral approach. An 018 wire was advanced into the superior vena cava, the needle was removed and a microsheath was placed. An Amplatz wire was then passed into the inferior vena cava. An incision at the internal jugular vein access site and anterior chest wall were made using a scalpel. An incision was made at the anterior chest wall. A small pocket was created using a combination of blunt and sharp dissection. A tunneling device was then used to pass the catheter from the pocket to the neck puncture site. An 8-[employer] smart power port was then positioned in the pocket. The catheter was then measured and cut. The introducer sheath was exchanged for a peel-away sheath. The catheter was passed through the peel-away sheath into the internal jugular vein and the peel-away sheath was removed. The port tip was positioned at the cavo atrial junction. The port was then accessed with a Morales needle. The port flushes and aspirates well. The puncture site in the neck was closed. The chest wall incision was then closed with 2-0 Vicryl and 4-0 Monocryl. Glue and Steri-Strips were applied. A sterile dressing was then applied. The patient tolerated the procedure well and was returned to the PRU in stable condition. Estimated blood loss: <5 ml. Complications: None. Conclusion: 1. Successful placement of an 8-[place] [employer] smart power port via the right internal jugular vein. The port is ready for immediate use. 2. Patient to follow up in IR clinic in 2 weeks. Thank you for this referral. Electronically Signed by Estrella Bradley MD 07/07/2019 03:18 P
== END ==
LOC: M IRPRO 09:03
PROVIDERS: ATTEND Radiology Diagnostic Radiology
DX: C88.4 Extranodal marginal zone B-cell lymphoma of mucosa-associated lymphoid tissue [MALT-lymphoma] (principal)
CPT/HCPCS: 36561; 99152; 99153; C1769; C1788; C1894; J0690; J1200; J2250; J3010; Q9967

== ENCOUNTER → 2019-07-20 | Outpatient (POV) | payer MEDICARE ==
[~2019-07-20] VITALS: Ht 162.6 cm; Wt 97.3 kg
[~2019-07-20] MED LIST changes: -HEPARIN 1,000 UNITS/ML 10ML VIAL (FOR RADIOLOGY& DIALYSIS ONLY) As Ordered ONE; +IRON325T2 PO; -ISOVUE-300 61% 50ML VIAL (Q9967) As Ordered ONE; -LIDOCAINE 1% MDV 20ML VIAL As Ordered ONE; -MIDAZOLAM INJ 2 MG/2 ML VIAL (J2250) As Ordered ONE; -ceFAZolin 1GM INJ (J0690 PER 500MG) As Ordered ONE; -diphenhydrAMINE INJ 50MG/ML VIAL (J1200) As Ordered ONE; -fentaNYL 100 MCG/2 ML INJECTION (J3010) As Ordered ONE
[2019-07-20 09:20] VITALS: BP 149/80
--- NOTE | 2019-07-21 08:22 | IRPN ---
[facility] IR Progress Note IR Progress Note DATE: Jul 20, 2019 FOLLOW-UP: Status post port placement. No complaints. No fevers or chills. ON EXAMINATION: Port site looks to be healing well. No redness, tenderness or fluctuance. IMPRESSION: Doing well status post port placement. No further follow-up scheduled unless initiated by patient or infusion. Thank you for this referral Allergies Coded Allergies: No Known Allergies (Verified , 02/14/03) VS,Fishbone, I+O VS, Fishbone, I+O Vital Signs Date Time Temp Pulse Resp B/P (MAP) Pulse Ox O2 Delivery O2 Flow Rate FiO2 07/20/19 09:20 97.0 80 18 149/80 (103) 96 Room Air ANYI PORTER MD Jul 21, 2019 08:22
== END ==
LOC: M IRPOV 09:18
PROVIDERS: ATTEND Radiology Diagnostic Radiology
DX: Z45.2 Encounter for adjustment and management of vascular access device (principal)

== ENCOUNTER 2019-07-25 12:11 | Inpatient (IN) | payer MEDICARE ==
[~2019-07-25] VITALS: Ht 162.6 cm; Wt 100.4 kg
[2019-07-25] MEDS ORDERED: ONDANSETRON 4MG/2ML VIAL (J2405) As Ordered ONE (13:11)
[2019-07-25 13:14] LABS: VENOUS BASE EXCESS -8.9 (-2.0-2.0); VENOUS HCO3 18.1 MEQ/L (23.0-27.0); VENOUS O2 SATURATION 51.4 % (60.0-80.0); VENOUS PARTIAL PRESSURE CO2 43.5 mmHg (38.0-50.0); VENOUS PARTIAL PRESSURE O2 30.2 mmHg (30.0-50.0); VENOUS PH 7.238 UNITS (7.330-7.430); VENOUS STANDARD HCO3 16.5 MEQ/L; VENOUS TOTAL CO2 19.5 MEQ/L (24.0-28.0)
[2019-07-25] MEDS ORDERED: ONDANSETRON 4MG/2ML VIAL (J2405) IV ONE (13:15)
[2019-07-25] MEDS ORDERED: NS 1,000 ML IV ONE ×2 (13:15→15:00)
[2019-07-25 13:20] LABS: HEMATOCRIT 36.1 % (36.0-47.0); HEMOGLOBIN 10.9 g/dl (12.0-15.5); MEAN CORPUSCULAR HEMOGLOBIN 26.1 pg (27.0-33.0); MEAN CORPUSCULAR HGB CONC 30.2 g/dl (32.0-36.5); MEAN CORPUSCULAR VOLUME 86.4 fl (80.0-96.0); PLATELET COUNT, AUTOMATED 139 10^3/uL (150-450); RED BLOOD COUNT 4.18 10^6/uL (4.00-5.40); WHITE BLOOD COUNT 4.6 10^3/uL (4.0-10.0)
--- NOTE | 2019-07-25 13:28 | REP ---
Portable chest x-ray: Single view. History: Dyspnea and cough. Comparison study: May 21, 2019. Findings: There is a large hiatal hernia behind the heart. EKG electrodes are seen. A right-sided Bfqhdy-I-Tujj catheter is seen in place with its tip in the expected location of the superior vena cava. The heart is not enlarged. Pulmonary vasculature is not increased. Pleural angles are sharp. No significant bony abnormality. Impression: Pajbpu-H-Inwk catheter in place. Large hiatal hernia. Otherwise no acute disease. Electronically Signed by Joe Heller MD 07/25/2019 01:19 P
[2019-07-25 13:29] LABS: INR 1.11; PROTHROMBIN TIME 14.1 SECONDS (11.8-14.0)
[2019-07-25 13:56] LABS: ALBUMIN 3.4 GM/DL (3.2-5.2); ALT/SGPT 17 U/L (12-78); ATYPICAL LYMPH 1 % (0-5); BILIRUBIN,DIRECT 0.1 MG/DL (0.0-0.2); BILIRUBIN,TOTAL 0.3 MG/DL (0.2-1.0); BLOOD UREA NITROGEN 51 MG/DL (7-18); CALCIUM LEVEL 7.6 MG/DL (8.8-10.2); CARBON DIOXIDE LEVEL 20 MEQ/L (21-32); CHLORIDE LEVEL 99 MEQ/L (98-107); CPK CREATINE PHOSPHOKINASE 87 U/L (26-192); CREATININE FOR GFR 4.17 MG/DL (0.55-1.30); EOSINOPHILS 1 % (0-3); GLOMERULAR FILTRATION RATE 11.5 (>45); GLUCOSE, FASTING 111 MG/DL (70-100); LYMPHOCYTES 13 % (16-44); METAMYELOCYTES 5 % (0-0); MONOCYTES 9 % (0-5); MYELOCYTES 3 % (0-0); NEUTROPHILS 57 % (28-66); NT-PRO BNP 138 PG/ML (<125); PLATELET ESTIMATE DECREASED (NORMAL); POTASSIUM SERUM 4.8 MEQ/L (3.5-5.1); SODIUM LEVEL 132 MEQ/L (136-145); THYROID STIMULATING HORMONE 0.921 uIU/ML (0.358-3.740); THYROXINE (T4) 11.7 UG/DL (4.5-12.0); TOTAL PROTEIN 6.8 GM/DL (6.4-8.2); TROPONIN I < 0.02 NG/ML (< 0.10)
[2019-07-25 13:57] LABS: ANISOCYTOSIS 1+; POLYCHROMASIA 1+; TOXIC GRANULATION 1+
--- NOTE | 2019-07-25 14:52 | REP ---
CT brain without contrast: History: Confusion. Findings: Digital preliminary lemon picker radiograph demonstrates that the maxilla is edentulous. Bone window settings demonstrate an intact bony calvarium. There is a small amount of fluid in the right maxillary sinus. Otherwise, the visualized paranasal sinuses are clear. No intraorbital abnormality is seen. There is no evidence of intracranial hemorrhage. No mass, extra-axial fluid collection, or midline shift is seen. Bashir/white differentiation pattern is normal above and below the tentorium. Impression: Small quantity of fluid in the right maxillary sinus noted incidentally. Otherwise negative noncontrast head CT. Electronically Signed by Joe Heller MD 07/25/2019 04:53 P
--- NOTE | 2019-07-25 14:56 | REP ---
CT chest without contrast: History: Dehydration and vomiting. History of lymphoma. Comparison CT study of the chest is from June 18, 2019. CT findings: A right internal jugular Lnuovp-D-Jwsp catheter terminates in the superior vena cava. There is a moderate size sliding type hiatal hernia again noted. There is no evidence of pleural or pericardial effusion. No hilar or mediastinal mass or adenopathy is observed. There are patchy areas of peribronchovascular pulmonary parenchymal opacity in the right lower lobe, right middle lobe, right upper lobe, and to a lesser extent left upper lobe consistent with pneumonia. These changes are new when compared with June 18, 2019 prior study. No dense or confluent consolidation is seen. No bony abnormality. Impression: Patchy peribronchovascular inflammatory infiltrates in all three lobes of the right lung and in the left lower lobe consistent with early pneumonia. Electronically Signed by Joe Heller MD 07/25/2019 04:54 P
--- NOTE | 2019-07-25 14:58 | REP ---
CT abdomen and pelvis without IV or oral contrast: History: History of lymphoma. Dehydration and vomiting. Shortness of breath. Findings: Sliding hiatal hernia is seen. Post cholecystectomy clips are seen. The liver and the spleen are normal in size and homogeneous in texture. No abdominal mass or adenopathy is observed. There is a cyst in the lower pole of the right kidney again seen measuring 3.3 cm in diameter. No hydronephrosis is seen. A normal appendix is seen. No pelvic mass or adenopathy is seen. No uterine or ovarian abnormality is observed. Urinary bladder is intact. Small and large bowel loops are unremarkable. No acute bony abnormality. Impression: Right renal cyst again noted unchanged. Hiatal hernia and post cholecystectomy clips. Normal appendix. No acute abdominal or pelvic abnormality. Electronically Signed by Joe Heller MD 07/25/2019 04:54 P
[2019-07-25] MEDS ORDERED: IPRATROPIUM 0.5MG/ALBUTEROL 2.5MG INH SOL UD 3ML (DUONEB)(J7620) NEB ONE (15:00)
[2019-07-25] MEDS ORDERED: ALBUTEROL SULFATE 2.5 MG/0.5 ML INH NEB SOLN INH ONE (15:00)
[2019-07-25] MEDS ORDERED: AZITHROMYCIN INJ 500 MG, VIAL MATE ADAPTER 1 EACH in D5W 250 ML IV ONE (15:00)
[2019-07-25] MEDS ORDERED: cefTRIAXone SOD 2 GM in D5W MINI-BAG PLUS 50 ML IV ONE (15:00)
[2019-07-25] MEDS ORDERED: dexameTHASONE 20 MG/5 ML VIAL (J1100) IV ONE (15:00)
[2019-07-25] MEDS ORDERED: RITU50VL IV (15:29)
[2019-07-25] MEDS ORDERED: [UNRECOGNIZED DRUG - CODE] IV (15:29)
[2019-07-25] MEDS ORDERED: PANT40TA3 PO (15:29)
[2019-07-25] MEDS ORDERED: [UNRECOGNIZED DRUG - CODE] IV (15:29)
[2019-07-25] MEDS ORDERED: DEXA10VL IV (15:29)
[2019-07-25] MEDS ORDERED: ACET1TAB37 PO (15:29)
[2019-07-25] MEDS ORDERED: DOXO2INJ IV (15:29)
[2019-07-25] MEDS ORDERED: PRED50TA PO (15:29)
[2019-07-25] MEDS ORDERED: FAMO40TA3 PO (15:29)
[2019-07-25] MEDS ORDERED: PROCHLORPERAZINE 5 MG TAB (S0183) PO PRN (16:00)
[2019-07-25] MEDS ORDERED: IPRATROPIUM 0.5MG/ALBUTEROL 2.5MG INH SOL UD 3ML (DUONEB)(J7620) NEB PRN (16:00)
[2019-07-25] MEDS ORDERED: MOM 30ML SUSPENSION UDC PO PRN (16:00)
[2019-07-25] MEDS ORDERED: ONDANSETRON 4 MG TAB (S0181) PO PRN (16:00)
[2019-07-25] MEDS ORDERED: predniSONE 50 MG TAB PO SCH (16:00)
[2019-07-25] MEDS: NS 1,000 ML IV SCH (16:00)
--- NOTE | 2019-07-25 16:14 | HPEPDOC ---
General Date of Admission Jul 25, 2019 at 15:46 Date of Service: Jul 25, 2019 Primary Care Physician: Montserrat Crowe Chief Complaint The patient is a 63-year-old female admitted with a reason for visit of Pneumonia. Source: Patient Timing/Duration: Day(s) Severity: Moderate Associated Symptoms: Shortness of breath History of Present Illness This is a 62 years old white female with past medical history of COPD, asthma, GERD, hypertension, neuropathic pain, B-cell lymphoma on chemotherapy, presented with chief complaints of increasing shortness of breath since this morning along with generalized weakness and shakiness. No chest pain, no nausea, vomiting, diarrhea or syncope. Shortness of breath is not associated with wheezing are expectoration of phlegm. Patient is being admitted to medical floor with the diagnosis of community- acquired pneumonia Home Medications Scheduled Aspirin (Aspirin EC) 81 Mg Tablet.dr, 81 MG PO DAILY, (Reported) Chlorthalidone (Chlorthalidone) 25 Mg Tablet, 25 MG PO DAILY, (Reported) Cyclophosphamide (Cyclophosphamide) 500 Mg Vial, 1,500 MG IV ASDIRECTED, (Reported) ON DAY 1 OF 21 DAY CHEMO CYCLE Dexamethasone (Dexamethasone 10 mg/ml Vial) 10 Mg/1 Ml Vial, 10 MG IV ASDIRECTED, (Reported) ON DAY 1 OF 21 DAY CHEMO CYCLE Doxorubicin HCl (Doxorubicin HCl) 50 Mg/25 Ml Vial, 100 MG IV ASDIRECTED, (Reported) ON DAY 1 OF 21 DAY CHEMO CYCLE Famotidine (Famotidine) 40 Mg Tablet, 40 MG PO DAILY, (Reported) Ferrous Sulfate (Iron) 325 Mg Tablet, 325 MG PO DAILY, (Reported) Fluticasone Furoate (Arnuity Ellipta) 200 Mcg Blst.w.dev, 1 PUFF INH DAILY, (Reported) Lisinopril (Lisinopril) 10 Mg Tablet, 10 MG PO DAILY, (Reported) Meloxicam (Meloxicam) 15 Mg Tablet, 15 MG PO QHS, (Reported) Pantoprazole Sodium (Pantoprazole Sodium) 40 Mg Tablet.dr, 40 MG PO BID, (Reported) Prednisone (Prednisone) 50 Mg Tablet, 100 MG PO ASDIRECTED, (Reported) TAKES ON DAYS 1-5 OF 21 DAY CHEMO CYCLE Pregabalin (Pregabalin) 75 Mg Capsule, 75 MG PO BID, (Reported) Rituximab (Rituxan) 10 Mg/1 Ml Vial, 750 MG IV ASDIRECTED, (Reported) ON DAY 1 OF 21 DAY CHEMO CYCLE Ropinirole HCl (Ropinirole HCl) 1 Mg Tablet, 1 MG PO QHS, (Reported) Rosuvastatin Calcium (Rosuvastatin Calcium) 20 Mg Tablet, 20 MG PO DAILY, (Reported) Tiotropium Br/Olodaterol HCl (Stiolto Respimat Inhal Raymond) 4 Gm Mist.inhal, 2 PUFF INH DAILY, (Reported) Vincristine Sulfate (Vincristine Sulfate) 2 Mg/2 Ml Vial, 2 MG IV ASDIRECTED, (Reported) ON DAY 1 OF 21 DAY CHEMO CYCLE Scheduled PRN Acetaminophen (Acetaminophen ER) 650 Mg Tablet.er, 650 MG PO TID PRN for PAIN, (Reported) Ondansetron HCl (Ondansetron HCl) 8 Mg Tablet, 8 MG PO Q6H PRN for NAUSEA OR VOMITING TAKE ONE TABLET EVERY 6 HOURS NEEDED FOR NAUSEA. Prochlorperazine Maleate (Prochlorperazine Maleate) 10 Mg Tablet, 10 MG PO Q8H PRN for NAUSEA OR VOMITING TAKE ONE TABLET EVERY 8 HOURS NEEDED FOR NAUSEA. Allergies Coded Allergies: No Known Allergies (Verified , 02/14/03) Past Medical History Medical History B-cell lymphoma on chemotherapy, COPD, asthma, GERD, hypertension, neuropathic pain, restless legs syndrome, hiatal hernia Surgical History Tonsillectomy, cholecystectomy, surgical removal of ganglion cyst from her left forearm/wrist Family History Brother has Canales's esophagus, 1 sister had breast cancer. Another sister to lung cancer. Both are Social History * Smoker: former Smoker Alcohol: Denies Drugs: denies A-FIB/CHADSVASC A-FIB History Current/History of A-Fib/PAF?: No Review of Systems Constitutional: Reports: Chills Eyes: Denies: Pain, Vision change, Conjunctivae inflammation, Eyelid inflammation, Redness, Other ENT: Denies: Head Aches, Ear Pain, Dysphagia, Sinus Congestion, Post Nasal Drip, Sore Throat, Epistaxis, Other Symptoms Skin: Denies: Rash, Lesions, Jaundice, Bruising, Itching, Dry, Breakdown, Nail Changes, Other Pulmonary: Reports: Dyspnea Cardiovascular: Denies: Chest Pain, Palpitations, Orthopnea, Paroxysmal Noc. Dyspnea, Edema, Lt Headedness, Other Symptoms Gastrointestinal: Denies: Nausea, Vomiting, Abdominal Pain, Diarrhea, Constipation, Melena, Hematochezia, Other Symptoms Genitourinary: Denies: Dysuria, Frequency, Incontinence, Hematuria, Retention, Other Symptoms Hematologic: Denies: Bruising, Bleeding Excessively, Petecchia, Purpura, Enlarged Lymph Nodes, Other Hematologic Endocrine: Denies: Polydipsia, Polyphagia, Polyuria, Heat Intolerance, Cold Intolerance, Other Endocrine Sx Musculoskeletal: Denies: Neck Pain, Back Pain, Shoulder Pain, Arm Pain, Hand Pain, Leg Pain, Foot Pain, Joint Pain, Muscle Pain, Spasms, Other Symptoms Neurological: Denies: Weakness, Numbness, Incoordination, Change in speech, Confusion, Seizures, Other Symptoms Psych: Denies: Mood Normal, Anxiety, Depression, Memory Issues, Thoughts of Self Harm, Anger, Thoughts of Harming Other, Other Psych Physical Examination General Exam: Positive: Alert, Cooperative Eye Exam: Positive: PERRLA, Conjunctiva & lids normal ENT Exam: Positive: Atraumatic, Mucous membr. moist/pink Neck Exam: Positive: Supple Chest Exam: Positive: Diminished, Other (no wheezing or rales audible) Heart Exam: Positive: Rate Normal, Normal S1, Normal S2 Abdomen Exam: Positive: Normal bowel sounds, Soft Extremity Exam: Positive: Normal pulses Skin Exam: Positive: Nl turgor and temperature Neuro Exam: Positive: Strength at 5/5 X4 ext, Sensation Intact, Cranial Nerves 3-12 NL Psych Exam: Positive: Mental status NL, Oriented x 3 Vital Signs Vital Signs Date Time Temp Pulse Resp B/P (MAP) Pulse Ox O2 Delivery O2 Flow Rate FiO2 07/25/19 14:00 99 127/65 (85) 95 07/25/19 12:12 98.5 32 Room Air Laboratory Data Labs 24H Laboratory Tests 2 07/25/19 13:05: Immature Granulocyte % (Auto) , Lymphocytes # (Auto) , Nucleated Red Blood Cells % (auto) 0.4H, Neutrophils 57, Band Neutrophils 11, Lymphocytes (Manual) 13L, Monocytes (Manual) 9H, Eosinophils (Manual) 1, Metamyelocytes 5H, Myelocytes 3H, Atypical Lymphocytes 1, Polychromasia 1+, Anisocytosis 1+, Toxic Granulation 1+, Platelet Estimate DECREASED, Prothrombin Time 14.1H, Prothromb Time Internatio nal Ratio 1.11, Blood Gas Bicarbonate Standard 16.5, Venous Blood pH 7.238L, Venous Blood Partial Pressure CO2 43.5, Venous Blood Partial Pressure O2 30.2, Venous Blood Total Carbon Dioxide 19.5L, Venous Blood HCO3 18.1L, Venous Blood Oxygen Saturation 51.4L, Venous Blood Base Excess -8.9L, Anion Gap 13, Glomerular Filtration Rate 11.5L, Lactic Acid Level 2.0, Calcium Level 7.6L, Total Bilirubin 0.3, Direct Bilirubin 0.1, Aspartate Amino Transf (AST/SGOT) 17, Alanine Aminotransferase (ALT/SGPT) 17, Alkaline Phosphatase 86, Total Creatine Kinase 87, Creatine Kinase MB 4.0H, Creatine Kinase MB Relative Index 4.60H, Troponin I < 0.02, ZP-Vmm-V-Type Natriuretic Peptide 138H, Total Protein 6.8, A lbumin 3.4, Albumin/Globulin Ratio 1.00, Thyroid Stimulating Hormone (TSH) 0.921, Thyroxine (T4) 11.7 CBC/BMP Laboratory Tests 07/25/19 13:05 Microbiology Microbiology 07/25/19 Respiratory Virus Panel (PCR) ([facility]) - Final, Complete 07/25/19 Blood Culture, Received Pending Problems (1) CAP (community acquired pneumonia) Status: Acute Problem Text: 63 years old white female with past medical history of multiple medical problems including B-cell lymphoma on chemotherapy, history of COPD, asthma, GERD, hypertension, restless leg syndrome and hiatal hernia, gallop increasing shortness of breath with chills and generalized weakness and she was diagnosed with a community-acquired pneumonia, admitted for further workup.. Patient's chest x-ray is consistent with possible infiltrate all 3 lobes of right lung and left lower lobe. WBC count is 4.6, H&H is stable. Electrolytes are normal. BNP is 138 Admit patient to medical floor for further managementt IV fluids normal saline 100 mL per hour Zithromax 500 mg IV every 24 hours 1 g IV every 24 hours DuoNeb every 6 hours and every 2 hours when necessary Continue all home meds except chemotherapy agents DVT prophylaxis with Lovenox Regular diet Activity as tolerated Repeat labs in a.m. Oxygen support as needed (2) COPD (chronic obstructive pulmonary disease) Status: Chronic Problem Text: Oxygen support as needed DuoNeb every 6 hours and every 2 hours when necessary Continue home meds (3) B-cell lymphoma Status: Chronic Problem Text: Pt is receiving chemotherapy with Dr. Gold as outpatient Continue chemotherapy once she is discharged (4) HTN (hypertension) Status: Chronic Problem Text: Under control Continue home meds (5) MARLO (acute kidney injury) Status: Acute Problem Text: Luis Miguel 51, creatinine 4.17 A care, most likely secondary to prerenal azotemia Will continue IV hydration and monitor BUN/creatinine Plan / VTE VTE Prophylaxis Ordered?: Yes MOIZ SHRESTHA MD Jul 25, 2019 16:14
[2019-07-25 19:00] VITALS: BP 117/53
--- NOTE | 2019-07-25 19:54 | ECGEPIP ---
[facility] - ED Test Date: 2019-07-25 Pat Name: JAI FLORES Department: Room: - Gender: Female Food Taster: KENIA : 1955 Requested By: ORALIA Becker Order Number: [id number] Reading MD: Emanuel Milner Measurements Intervals Cameron Rate: 108 P: 44 AR: 125 QRS: 15 QRSD: 88 T: 2 QT: 318 QTc: 427 Interpretive Statements SINUS TACHYCARDIA ABNORMAL RHYTHM ECG NONSPECIFIC ST T WAVE CHANGES 05/21/[address] T WAVE CHANGES Electronically Signed on 07-25-2019 19:54:24 EST by Emanuel Milner
[2019-07-25] MEDS: IPRATROPIUM 0.5MG/ALBUTEROL 2.5MG INH SOL UD 3ML (DUONEB)(J7620) NEB SCH (19:57)
[2019-07-25 20:15] VITALS: BP 113/54
[2019-07-25] MEDS: MELOXICAM (MOBIC) 7.5 MG TAB PO SCH (22:02)
[2019-07-25] MEDS: PANTOPRAZOLE 40MG TAB (PROTONIX) PO SCH (22:02)
[2019-07-25] MEDS: DOCUSATE SODIUM 100 MG CAP PO SCH (22:02)
[2019-07-25] MEDS: PREGABALIN 75 MG CAP(LYRICA) PO SCH (22:02)
[2019-07-25] MEDS: ENOXAPARIN 30 MG/0.3 ML SYR (J1650) SC SCH (22:03)
[2019-07-25] MEDS: rOPINIRole 1MG TAB PO SCH (22:03)
[2019-07-26] MEDS: NS 1,000 ML IV SCH ×3 (01:33→20:58)
[2019-07-26] MEDS: IPRATROPIUM 0.5MG/ALBUTEROL 2.5MG INH SOL UD 3ML (DUONEB)(J7620) NEB SCH ×4 (02:00→16:08)
[2019-07-26 05:40] VITALS: BP 106/54
[2019-07-26 05:56] LABS: HEMATOCRIT 31.8 % (36.0-47.0); HEMOGLOBIN 9.5 g/dl (12.0-15.5); MEAN CORPUSCULAR HEMOGLOBIN 25.8 pg (27.0-33.0); MEAN CORPUSCULAR HGB CONC 29.9 g/dl (32.0-36.5); MEAN CORPUSCULAR VOLUME 86.4 fl (80.0-96.0); PLATELET COUNT, AUTOMATED 107 10^3/uL (150-450); RED BLOOD COUNT 3.68 10^6/uL (4.00-5.40); WHITE BLOOD COUNT 6.7 10^3/uL (4.0-10.0)
[2019-07-26 06:26] LABS: ALBUMIN 2.7 GM/DL (3.2-5.2); BILIRUBIN,TOTAL 0.1 MG/DL (0.2-1.0); CALCIUM LEVEL 7.5 MG/DL (8.8-10.2); CREATININE FOR GFR 2.5 MG/DL (0.55-1.30); GLOMERULAR FILTRATION RATE 20.7 (>45); MAGNESIUM LEVEL 1.9 MG/DL (1.8-2.4); POTASSIUM SERUM 4.9 MEQ/L (3.5-5.1); TOTAL PROTEIN 6.6 GM/DL (6.4-8.2)
[2019-07-26] MEDS: DOCUSATE SODIUM 100 MG CAP PO SCH ×2 (09:00→20:55)
[2019-07-26] MEDS: lisinopriL 10 MG TAB PO SCH (09:00)
[2019-07-26] MEDS: ROSUVASTATIN 10 MG TAB (CRESTOR) PO SCH (09:03)
[2019-07-26] MEDS: FERROUS SULFATE 325MG TAB PO SCH (09:03)
[2019-07-26] MEDS: PANTOPRAZOLE 40MG TAB (PROTONIX) PO SCH ×2 (09:03→20:55)
[2019-07-26] MEDS: ASPIRIN 81 MG ENTERIC TAB PO SCH (09:04)
[2019-07-26] MEDS: CHLORTHALIDONE 25 MG TAB PO SCH (09:04)
[2019-07-26] MEDS: PREGABALIN 75 MG CAP(LYRICA) PO SCH ×2 (09:04→20:55)
--- NOTE | 2019-07-26 10:21 | IPNPDOC ---
Subjective Date Seen The patient was seen on 07/26/19. Subjective Chief Complaint/HPI Patient feeling much better, comfortable, in no apparent distress General: Denies: ROS Unobtainable, Chills, Night Sweats, Fatigue, Malaise, Normal Appetite, Other Symptoms Constitutional: Denies: Chills, Fever, Malaise, Night Sweats, Weakness, Fatigue, Weight Loss, Lethargy, Other Skin: Denies: Rash, Lesions, Jaundice, Bruising, Itching, Dry, Breakdown, Nail Changes, Other Pulmonary: Denies: Dyspnea, Cough, Pleuritic Chest Pain, Other Symptoms Cardiovascular: Denies: Chest Pain, Palpitations, Orthopnea, Paroxysmal Noc. Dyspnea, Edema, Lt Headedness, Other Symptoms Gastrointestinal: Denies: Nausea, Vomiting, Abdominal Pain, Diarrhea, Constipation, Melena, Hematochezia, Other Symptoms Endocrine: Denies: Polydipsia, Polyphagia, Polyuria, Heat Intolerance, Cold Intolerance, Other Endocrine Sx Musculoskeletal: Denies: Neck Pain, Back Pain, Shoulder Pain, Arm Pain, Hand Pain, Leg Pain, Foot Pain, Joint Pain, Muscle Pain, Spasms, Other Symptoms Neurological: Denies: Weakness, Numbness, Incoordination, Change in speech, Confusion, Seizures, Other Symptoms Objective Physical Examination Neck Exam: Positive: Supple Chest Exam: Positive: Diminished, Other (no wheezing or rales audible) Heart Exam: Positive: Rate Normal, Normal S1, Normal S2 Abdomen Exam: Positive: Normal bowel sounds, Soft Extremity Exam: Positive: Normal pulses Skin Exam: Positive: Nl turgor and temperature Neuro Exam: Positive: Strength at 5/5 X4 ext, Sensation Intact, Cranial Nerves 3-12 NL Psych Exam: Positive: Mental status NL, Oriented x 3 Assessment /Plan Problems (1) CAP (community acquired pneumonia) Status: Acute Problem Text: 63 years old white female with past medical history of multiple medical problems including B-cell lymphoma on chemotherapy, history of COPD, asthma, GERD, hypertension, restless leg syndrome and hiatal hernia, gallop increasing shortness of breath with chills and generalized weakness and she was diagnosed with a community-acquired pneumonia, admitted for further workup.. Patient's chest x-ray is consistent with possible infiltrate all 3 lobes of right lung and left lower lobe. WBC count is 4.6, H&H is stable. Electrolytes are normal. BNP is 138 ptadmitted to medical floor for further treatment Zithromax 500 mg IV every 24 hours 1 g IV every 24 hours DuoNeb every 6 hours and every 2 hours when necessary Continue all home meds except chemotherapy agents Patient clinically improved, decreased shortness of breath, no respiratory symptoms. If the renal functions are improved by tomorrow, then he can be discharged home on by mouth antibiotics (2) MARLO (acute kidney injury) Status: Acute Problem Text: MARLO most likely secondary to prerenal azotemia On admission, patient's BUN 51, creatinine 4.17 Today. Patient's creatinine is 2.50 with significantly improvement in the renal functions Will continue IV hydration, the creatinine normalizes A.m. labs have been ordered (3) B-cell lymphoma Status: Chronic Problem Text: Pt is receiving chemotherapy with Dr. Gold as outpatient Continue chemotherapy once she is discharged (4) HTN (hypertension) Status: Chronic Problem Text: Under control Continue home meds (5) COPD (chronic obstructive pulmonary disease) Status: Chronic Problem Text: Oxygen support as needed DuoNeb every 6 hours and every 2 hours when necessary Continue home meds Plan/VTE VTE Prophylaxis Ordered?: Yes VS, I&O, 24H, Fishbone Vital Signs/I&O Vital Signs Date Time Temp Pulse Resp B/P (MAP) Pulse Ox O2 Delivery O2 Flow Rate FiO2 07/26/19 09:00 101/56 07/26/19 05:40 97.0 85 18 96 Nasal Cannula 2.0 I&O- Last 24 Hours up to 6 AM 07/26/19 06:00 Intake Total 2160 ml Output Total 0 ml Balance 2160 ml Laboratory Data 24H LABS Laboratory Tests 2 07/25/19 13:05: Immature Granulocyte % (Auto) , Lymphocytes # (Auto) , Nucleated Red Blood Cells % (auto) 0.4H, Neutrophils 57, Band Neutrophils 11, Lymphocytes (Manual) 13L, Monocytes (Manual) 9H, Eosinophils (Manual) 1, Metamyelocytes 5H, Myelocytes 3H, Atypical Lymphocytes 1, Polychromasia 1+, Anisocytosis 1+, Toxic Granulation 1+, Platelet Estimate DECREASED, Prothrombin Time 14.1H, Prothromb Time International Ratio 1.11, Blood Gas Bicarbonate Standard 16.5, Venous Blood pH 7.238L, Venous Blood Partial Pressure CO2 43.5, Venous Blood Partial Pressure O2 30.2, Venous Blood Total Carbon Dioxide 19.5L, Venous Blood HCO3 18.1L, Venous Blood Oxygen Saturation 51.4L, Venous Blood Base Excess -8.9L, Anion Gap 13, Glomerular Filtration Rate 11.5L, Lactic Acid Level 2.0, Calcium Level 7.6L, Total Bilirubin 0.3, Direct Bilirubin 0.1, Aspartate Amino Transf (AST/SGOT) 17, Alanine Aminotransferase (ALT/SGPT) 17, Alkaline Phosphatase 86, Total Creatine Kinase 87, Creatine Kinase MB 4.0H, Creatine Kinase MB Relative Index 4.60H, Troponin I < 0.02, KV-Abk-Q-Type Natriuretic Peptide 138H, Total Protein 6.8, Albumin 3.4, Albumin/Globulin Ratio 1.00, Thyroid Stimulating Hormone (TSH) 0.921, Thyroxine (T4) 11.7 07/26/19 05:35: Nucleated Red Blood Cells % (auto) 0.3H, Anion Gap 11, Glomerular Filtration Rate 20.7L, Calcium Level 7.5L, Total Bilirubin 0.1#L, Aspartate Amino Transf (AST/SGOT) 17, Alanine Aminotransferase (ALT/SGPT) 19, Alkaline Phosphatase 78, Total Protein 6.6, Albumin 2.7#L, Albumin/Globulin Ratio 0.69L, Magnesium Level 1.9 CBC/BMP Laboratory Tests 07/25/19 13:05 07/26/19 05:35 Microbiology Microbiology 07/26/19 Blood Culture, Received Pending 07/25/19 Respiratory Virus Panel (PCR) ([facility]) - Final, Complete 07/25/19 Blood Culture, Received Pending MOIZ SHRESTHA MD Jul 26, 2019 10:21
[2019-07-26 14:00] VITALS: BP 104/53
[2019-07-26] MEDS: cefTRIAXone SOD 1 GM in D5W MINI-BAG PLUS 50 ML IV SCH (15:02)
[2019-07-26] MEDS: AZITHROMYCIN INJ 500 MG, VIAL MATE ADAPTER 1 EACH in D5W 250 ML IV SCH (15:42)
[2019-07-26] MEDS: MELOXICAM (MOBIC) 7.5 MG TAB PO SCH (20:55)
[2019-07-26] MEDS: ENOXAPARIN 30 MG/0.3 ML SYR (J1650) SC SCH (20:55)
[2019-07-26] MEDS: rOPINIRole 1MG TAB PO SCH (20:55)
[2019-07-26] MEDS: MAALOX 30 ML SUSP *UDC PO PRN (21:03)
[2019-07-26 21:40] VITALS: BP 112/57
[2019-07-27] MEDS: IPRATROPIUM 0.5MG/ALBUTEROL 2.5MG INH SOL UD 3ML (DUONEB)(J7620) NEB SCH ×4 (01:07→20:34)
[2019-07-27] MEDS: ACETAMINOPHEN TAB 650MG DOSE (2X325MG) PO PRN ×3 (04:27→21:07)
[2019-07-27] MEDS: NS 1,000 ML IV SCH (04:29)
[2019-07-27 05:46] VITALS: BP 139/71
[2019-07-27 06:10] LABS: HEMATOCRIT 27.6 % (36.0-47.0); HEMOGLOBIN 8.3 g/dl (12.0-15.5); MEAN CORPUSCULAR HEMOGLOBIN 26.3 pg (27.0-33.0); MEAN CORPUSCULAR HGB CONC 30.1 g/dl (32.0-36.5); MEAN CORPUSCULAR VOLUME 87.6 fl (80.0-96.0); RED BLOOD COUNT 3.15 10^6/uL (4.00-5.40); WHITE BLOOD COUNT 5.3 10^3/uL (4.0-10.0)
[2019-07-27 06:25] LABS: ALBUMIN 2.4 GM/DL (3.2-5.2); BILIRUBIN,TOTAL 0.4 MG/DL (0.2-1.0); CALCIUM LEVEL 7.6 MG/DL (8.8-10.2); CREATININE FOR GFR 1.32 MG/DL (0.55-1.30); GLOMERULAR FILTRATION RATE 43.3 (>45); POTASSIUM SERUM 4.7 MEQ/L (3.5-5.1); TOTAL PROTEIN 5.9 GM/DL (6.4-8.2)
[2019-07-27 06:35] LABS: PLATELET COUNT, AUTOMATED 97 10^3/uL (150-450)
[2019-07-27 06:47] LABS: ANISOCYTOSIS 4+; LYMPHOCYTES 3 % (16-44); METAMYELOCYTES 2 % (0-0); MONOCYTES 7 % (0-5); NEUTROPHILS 87 % (28-66); PLATELET ESTIMATE DECREASED (NORMAL)
[2019-07-27 06:48] LABS: HYPOCHROMASIA 1+
[2019-07-27] MEDS: DOCUSATE SODIUM 100 MG CAP PO SCH ×2 (08:37→21:07)
[2019-07-27] MEDS: PANTOPRAZOLE 40MG TAB (PROTONIX) PO SCH ×2 (08:37→21:06)
[2019-07-27] MEDS: FAMOTIDINE 20 MG TAB PO SCH (08:37)
[2019-07-27] MEDS: ASPIRIN 81 MG ENTERIC TAB PO SCH (08:38)
[2019-07-27] MEDS: PREGABALIN 75 MG CAP(LYRICA) PO SCH ×2 (08:38→21:06)
[2019-07-27] MEDS: ROSUVASTATIN 10 MG TAB (CRESTOR) PO SCH (08:38)
[2019-07-27] MEDS: FERROUS SULFATE 325MG TAB PO SCH (08:38)
[2019-07-27] MEDS: lisinopriL 10 MG TAB PO SCH (08:38)
[2019-07-27] MEDS: CHLORTHALIDONE 25 MG TAB PO SCH (10:50)
[2019-07-27 12:44] LABS: HEMATOCRIT 31.1 % (36.0-47.0); HEMOGLOBIN 9.3 g/dl (12.0-15.5); MEAN CORPUSCULAR HEMOGLOBIN 26.1 pg (27.0-33.0); MEAN CORPUSCULAR HGB CONC 29.9 g/dl (32.0-36.5); MEAN CORPUSCULAR VOLUME 87.1 fl (80.0-96.0); PLATELET COUNT, AUTOMATED 101 10^3/uL (150-450); RED BLOOD COUNT 3.57 10^6/uL (4.00-5.40); WHITE BLOOD COUNT 6.4 10^3/uL (4.0-10.0)
--- NOTE | 2019-07-27 13:51 | REP ---
CHEST, SINGLE VIEW: Single view of the chest is performed and compared to a prior study of 07/25/2019 as well as other prior exams. There is infiltrate in the right lung base. Mild peribronchial thickening is seen in the right upper lobe. No consolidating infiltrate is seen in the left lung. The heart is not enlarged. The mediastinal silhouette is unchanged. There is a large hiatal hernia. There is a right central venous catheter with the tip at the junction of the superior vena cava and right atrium. IMPRESSION: Right basilar infiltrate. Electronically Signed by Taiwo Bashir MD 07/27/2019 04:24 P
[2019-07-27 14:00] VITALS: BP 169/85
[2019-07-27] MEDS: AZITHROMYCIN INJ 500 MG, VIAL MATE ADAPTER 1 EACH in D5W 250 ML IV SCH (15:21)
[2019-07-27] MEDS: cefTRIAXone SOD 1 GM in D5W MINI-BAG PLUS 50 ML IV SCH (15:21)
[2019-07-27 17:40] LABS: ABG BASE EXCESS -5.7 (-2.0-2.0); ABG HCO3 17.8 MEQ/L (22.0-26.0); ABG O2 SATURATION 95.9 % (95.0-99.0); ABG PARTIAL PRESSURE CO2 27.7 mmHg (35.0-45.0); ABG PARTIAL PRESSURE O2 77.9 mmHg (75.0-100.0); ABG STANDARD HCO3 19.7 MEQ/L (22.0-26.0); ABG TOTAL CO2 18.6 MEQ/L (23.0-31.0); ABG pH (ARTERIAL) 7.425 UNITS (7.350-7.450)
[2019-07-27] MEDS ORDERED: VANCOMYCIN HCL 1,000 MG, VIAL MATE ADAPTER 1 EACH in D5W 250 ML IV SCH (18:00)
--- NOTE | 2019-07-27 18:00 | IPNPDOC ---
Date Seen The patient was seen on 07/27/19. Progress Note SUBJECTIVE: 63-year-old female with past medical history of MALT lymphoma, COPD, hypertension and GI bleed was admitted for pneumonia and acute kidney injury. Patient's renal function is improved with IV fluids, patient continues experiencing significant cough, dyspnea and malaise at this time. She reports dyspnea has worsened over the past 24-48 hours, reports to pursue felt like this when she was having her GI bleed. Otherwise she reports cough is nonproductive, reports one episode of vomiting after eating breakfast today, had minimal intake during lunch. She is also been febrile today and tachycardic. She otherwise denies chest pain, abdominal pain, diarrhea or constipation. 10 point review of system is negative except for above PHYSICAL EXAMINATION: VITAL SIGNS: Please see below. GENERAL: No distress, obese HEENT: Normocephalic, atraumatic, moist mucous membranes NECK: Supple CARDIOVASCULAR EXAMINATION: S1, S2, tachycardic RESPIRATORY EXAMINATION: Scattered rhonchi, no wheezing ABDOMINAL EXAMINATION: Soft, nontender, nondistended, positive bowel sounds EXTREMITIES: Range of motion intact SKIN: No rash NEUROLOGICAL EXAMINATION: Alert and oriented 3, no focal deficits PSYCHIATRIC EXAMINATION: Calm and cooperative LABORATORY DATA, IMAGING STUDIES, MICROBIOLOGY: Please see below. 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 PROBLEMS: 1. Pneumonia: Given recent chemotherapy will switch antibiotics to vancomycin and meropenem as patient remains febrile on azithromycin and ceftriaxone, MRSA PCR ordered. 2. Acute kidney injury: Improved with IV fluids, hold IV fluids if oral intake improves. 3. COPD:, Continue home meds. 4. Hypertension: Continue home meds with hold parameters. 5. Recent GI bleed: Continue PPI and Pepcid DVT prophylaxis: Heparin subcutaneous GI prophylaxis: Home PPI and Pepcid VS, I&O, 24H, Fishbone Vital Signs/I&O Vital Signs Date Time Temp Pulse Resp B/P (MAP) Pulse Ox O2 Delivery O2 Flow Rate FiO2 07/27/19 05:46 97.8 99 20 139/71 (93) 96 Room Air 07/26/19 14:00 2.0 l I&O- Last 24 Hours up to 6 AM 07/27/19 06:00 Intake Total 3462 ml Output Total 1900 ml Balance 1562 ml Laboratory Data 24H LABS Laboratory Tests 2 07/27/19 05:41: Immature Granulocyte % (Auto) , Nucleated Red Blood Cells % (auto) 0.0, Neutrophils 87H, Band Neutrophils 1, Lymphocytes (Manual) 3L, Monocytes (Manual) 7H, Metamyelocytes 2H, Hypochromasia 1+, Anisocytosis 4+, Platelet Estimate DECREASED, Immature Platelet Fraction 3.4, Anion Gap 6L, Glomerular Filtration Rate 43.3L, Calcium Level 7.6L, Total Bilirubin 0.4#, Aspartate Amino Transf (AST/SGOT) 10, Alanine Aminotransferase (ALT/SGPT) 15, Alkaline Phosphatase 66, Total Protein 5.9L, Albumin 2.4L, Albumin/Globulin Ratio 0.69L 07/27/19 12:33: Nucleated Red Blood Cells % (auto) 0.0 07/27/19 17:27: CBC/BMP Laboratory Tests 07/27/19 05:41 07/27/19 12:33 Microbiology Microbiology 07/26/19 Blood Culture - Preliminary, Resulted No growth after 24 hours . All specim... 07/25/19 Respiratory Virus Panel (PCR) ([facility]) - Final, Complete 07/25/19 Blood Culture - Preliminary, Resulted No Growth after 48 hours. All Specime... JANEL CANALES MD Jul 27, 2019 18:00
--- NOTE | 2019-07-27 18:11 | PHACANCOPD ---
PHARMACY VANCOMYCIN DOSING Pt Demographics Demographics Patient Age:63 , Weight:100.400 , Gender: female Adjusted Body Weight Date: 07/27/19, Adjusted Body Weight: [73] Kg Events Past 24 Hours Events Past 24 Hours: NO: Dialysis, Diuretic Therapy, Change in CrCl, Fever, Elevation in WBC, Pending Diagnostics, Pending Procedures, Other Vancomycin Vancomycin indication: PNEUMONIA Vancomycin Target Ranges: 15-20 mcg/ml Vancomycin Load Y/N: Yes Load Dose Date Time Vancomycin Load Dose: 2g Date:07/27/19 Time:18:00 Vancomycin Dose Date: 07/27/19. Current Vancomycin Dose: [1g iv q18h] Intermittent Dosing?: No Labs Labs Item Value Date Time Creatinine 4.17 MG/DL H 07/25/19 1305 Creatinine 2.50 MG/DL H 07/26/19 0535 Creatinine 1.32 MG/DL H 07/27/19 0541 White Blood Count 6.7 10^3/uL 07/26/19 0535 White Blood Count 5.3 10^3/uL 07/27/19 0541 White Blood Count 6.4 10^3/uL 07/27/19 1233 Micro Microbiology 07/26/19 Blood Culture - Preliminary, Resulted No growth after 24 hours . All specim... 07/25/19 Respiratory Virus Panel (PCR) ([facility]) - Final, Complete 07/25/19 Blood Culture - Preliminary, Resulted No Growth after 48 hours. All Specime... Creatinine Clearance Date:07/27/19. Creatinine Clearance: [50ml/min adj]. Pending Labs mrsa pcr Assessment and Plan Maintaining Current Dose?: Yes Reason for dose change: No Dose Change Pharmacist Note Pharmacist Note Date: 07/27/19. Pharmacist note: PT is a 63 year old female being treated for Pneumonia goal trough 15-20mcg/ml. The patient has not been treated with vancomycin here at [facility] in the past. Her Scr is trending down toward normal levels. To achieve goal the patient will receive 2g vancomycin IV 07/27/19 @18:00. Maintenance therapy will consist of 1g IV every 18h starting 07/28/19 @12:00. A MRSA PCR has been ordered. We will continue to monitor and adjust the dose as needed. [facility] Jul 27, 2019 18:11
[2019-07-27] MEDS ORDERED: VANCOMYCIN HCL 1,000 MG, VIAL MATE ADAPTER 1 EACH in D5W 250 ML IV ONE (19:00)
[2019-07-27 20:50] VITALS: BP 152/64
[2019-07-27] MEDS: rOPINIRole 1MG TAB PO SCH (21:06)
[2019-07-27] MEDS: MAALOX 30 ML SUSP *UDC PO PRN (21:06)
[2019-07-27] MEDS: HEPARIN SOD (PORCINE) 5000 UNITS/ML VIAL SQ SCH (21:07)
[2019-07-28] MEDS: IPRATROPIUM 0.5MG/ALBUTEROL 2.5MG INH SOL UD 3ML (DUONEB)(J7620) NEB SCH ×4 (00:05→19:58)
[2019-07-28] MEDS: MEROPENEM INJ 1 GM in IV 1 EA IV SCH ×3 (01:17→21:43)
[2019-07-28] MEDS: HEPARIN SOD (PORCINE) 5000 UNITS/ML VIAL SQ SCH ×3 (05:26→21:44)
[2019-07-28] MEDS: ACETAMINOPHEN TAB 650MG DOSE (2X325MG) PO PRN ×3 (05:26→21:44)
[2019-07-28 05:58] VITALS: BP 150/62
[2019-07-28 07:23] LABS: HEMATOCRIT 29.8 % (36.0-47.0); HEMOGLOBIN 9.1 g/dl (12.0-15.5); MEAN CORPUSCULAR HEMOGLOBIN 25.8 pg (27.0-33.0); MEAN CORPUSCULAR HGB CONC 30.5 g/dl (32.0-36.5); MEAN CORPUSCULAR VOLUME 84.4 fl (80.0-96.0); PLATELET COUNT, AUTOMATED 113 10^3/uL (150-450); RED BLOOD COUNT 3.53 10^6/uL (4.00-5.40)
[2019-07-28 07:50] LABS: ALBUMIN 2.2 GM/DL (3.2-5.2); BILIRUBIN,TOTAL 0.3 MG/DL (0.2-1.0); CALCIUM LEVEL 8.1 MG/DL (8.8-10.2); CREATININE FOR GFR 1.05 MG/DL (0.55-1.30); GLOMERULAR FILTRATION RATE 56.3 (>45); MAGNESIUM LEVEL 1.7 MG/DL (1.8-2.4); PHOSPHORUS LEVEL 2.3 MG/DL (2.5-4.9); POTASSIUM SERUM 4.9 MEQ/L (3.5-5.1); TOTAL PROTEIN 6.1 GM/DL (6.4-8.2)
[2019-07-28] MEDS: PANTOPRAZOLE 40MG TAB (PROTONIX) PO SCH ×2 (08:20→21:43)
[2019-07-28] MEDS: DOCUSATE SODIUM 100 MG CAP PO SCH ×3 (08:20→21:00)
[2019-07-28] MEDS: MAALOX 30 ML SUSP *UDC PO PRN (08:20)
[2019-07-28] MEDS: ASPIRIN 81 MG ENTERIC TAB PO SCH (08:20)
[2019-07-28] MEDS: lisinopriL 10 MG TAB PO SCH (08:20)
[2019-07-28] MEDS: FERROUS SULFATE 325MG TAB PO SCH (08:20)
[2019-07-28] MEDS: CHLORTHALIDONE 25 MG TAB PO SCH (08:20)
[2019-07-28] MEDS: PREGABALIN 75 MG CAP(LYRICA) PO SCH ×2 (08:20→21:43)
[2019-07-28] MEDS: ROSUVASTATIN 10 MG TAB (CRESTOR) PO SCH (08:20)
[2019-07-28] MEDS: MAG SULF 1GM/100ML (MAG RUN) 1 GM in IV 1 EA IV SCH ×2 (10:13→11:25)
[2019-07-28] MEDS: K-PHOS NEUTRAL 250MG TABLET (SOD.PHOSPHATE/POT.PHOSPHATE) PO SCH ×2 (12:44→15:27)
[2019-07-28 14:00] VITALS: BP 137/73
--- NOTE | 2019-07-28 18:58 | IPNPDOC ---
Date Seen The patient was seen on 07/28/19. Progress Note SUBJECTIVE: 63-year-old female with past medical history of MALT lymphoma, COPD, hypertension and GI bleed was admitted for pneumonia and acute kidney injury. Patient's renal function is improved with IV fluids, patient continues experiencing significant cough, dyspnea and malaise at this time. She reports dyspnea has worsened over the past 24-48 hours, reports to pursue felt like this when she was having her GI bleed. Otherwise she reports cough is nonproductive, reports one episode of vomiting after eating breakfast today, had minimal intake during lunch. She is also been febrile today and tachycardic. She otherwise denies chest pain, abdominal pain, diarrhea or constipation. 07/28/19 Significant improvement in dyspnea today, continues to have cough w/ slight sputum production, no other complaints; she denies CP, N/V, abdominal pain or diarrhea. 10 point review of system is negative except for above PHYSICAL EXAMINATION: VITAL SIGNS: Please see below. GENERAL: No distress, obese HEENT: Normocephalic, atraumatic, moist mucous membranes NECK: Supple CARDIOVASCULAR EXAMINATION: S1, S2, tachycardic RESPIRATORY EXAMINATION: Scattered rhonchi, no wheezing ABDOMINAL EXAMINATION: Soft, nontender, nondistended, positive bowel sounds EXTREMITIES: Range of motion intact SKIN: No rash NEUROLOGICAL EXAMINATION: Alert and oriented 3, no focal deficits PSYCHIATRIC EXAMINATION: Calm and cooperative LABORATORY DATA, IMAGING STUDIES, MICROBIOLOGY: Please see below. 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 PROBLEMS: 1. Pneumonia: MRSA PCR negative, Vancomycin dced, continue meropenem, if remains afebrile & clinically improving, will consider downgrading antibiotics. 2. Acute kidney injury: resolved w/ IV fluids, IV fluids now dced, PO intake adequate. 3. COPD: Continue home meds. 4. Hypertension: Continue home meds with hold parameters. 5. Recent GI bleed: Continue PPI and Pepcid 6. MALT Lymphoma - s/p RCHOP 2 weeks ago, f/u outpatient w/ Dr. Gold for further management. DVT prophylaxis: Heparin subcutaneous GI prophylaxis: Home PPI and Pepcid VS, I&O, 24H, Fishbone Vital Signs/I&O Vital Signs Date Time Temp Pulse Resp B/P (MAP) Pulse Ox O2 Delivery O2 Flow Rate FiO2 07/28/19 08:20 150/62 07/28/19 05:58 98.8 119 20 93 Room Air 07/27/19 21:00 2.0 I&O- Last 24 Hours up to 6 AM 07/28/19 06:00 Intake Total 2710 ml Output Total 2600 ml Balance 110 ml Laboratory Data 24H LABS Laboratory Tests 2 07/27/19 18:57: Methicillin-Resist S.aureus DNA PCR NOT DETECTED 07/28/19 06:57: Nucleated Red Blood Cells % (auto) 0.0, Anion Gap 5L, Glomerular Filtration Rate 56.3, Calcium Level 8.1L, Phosphorus Level 2.3L, Magnesium Level 1.7L, Total Bilirubin 0.3, Aspartate Amino Transf (AST/SGOT) 9, Alanine Aminotransferase (ALT/SGPT) 16, Alkaline Phosphatase 80, Total Protein 6.1L, Albumin 2.2L, Albumin/Globulin Ratio 0.56L CBC/BMP Laboratory Tests 07/28/19 06:57 Microbiology Microbiology 07/26/19 Blood Culture - Preliminary, Resulted No Growth after 48 hours. All Specime... 07/25/19 Respiratory Virus Panel (PCR) ([facility]) - Final, Complete 07/25/19 Blood Culture - Preliminary, Resulted No Growth after 72 hours. All specime... JANEL CANALES MD Jul 28, 2019 18:58
[2019-07-28] MEDS: rOPINIRole 1MG TAB PO SCH (21:43)
[2019-07-28 22:00] VITALS: BP 136/77
[2019-07-29] MEDS: IPRATROPIUM 0.5MG/ALBUTEROL 2.5MG INH SOL UD 3ML (DUONEB)(J7620) NEB SCH ×3 (01:18→13:43)
[2019-07-29 06:00] VITALS: BP 138/71
[2019-07-29] MEDS: HEPARIN SOD (PORCINE) 5000 UNITS/ML VIAL SQ SCH ×2 (06:26→14:51)
[2019-07-29 06:28] LABS: HEMATOCRIT 32.5 % (36.0-47.0); MEAN CORPUSCULAR HEMOGLOBIN 26.7 pg (27.0-33.0); MEAN CORPUSCULAR HGB CONC 30.8 g/dl (32.0-36.5); MEAN CORPUSCULAR VOLUME 86.9 fl (80.0-96.0); PLATELET COUNT, AUTOMATED 136 10^3/uL (150-450); RED BLOOD COUNT 3.74 10^6/uL (4.00-5.40)
[2019-07-29] MEDS: ACETAMINOPHEN TAB 650MG DOSE (2X325MG) PO PRN ×2 (06:38→12:45)
[2019-07-29 07:13] LABS: CALCIUM LEVEL 8.6 MG/DL (8.8-10.2); CREATININE FOR GFR 1.01 MG/DL (0.55-1.30); GLOMERULAR FILTRATION RATE 58.9 (>45); MAGNESIUM LEVEL 2.1 MG/DL (1.8-2.4); PHOSPHORUS LEVEL 4.1 MG/DL (2.5-4.9); POTASSIUM SERUM 4.7 MEQ/L (3.5-5.1)
[2019-07-29 08:32] VITALS: BP 138/71
[2019-07-29] MEDS: lisinopriL 10 MG TAB PO SCH (08:32)
[2019-07-29] MEDS: MEROPENEM INJ 1 GM in IV 1 EA IV SCH (08:32)
[2019-07-29] MEDS: PANTOPRAZOLE 40MG TAB (PROTONIX) PO SCH (08:32)
[2019-07-29] MEDS: ROSUVASTATIN 10 MG TAB (CRESTOR) PO SCH (08:32)
[2019-07-29] MEDS: CHLORTHALIDONE 25 MG TAB PO SCH (08:32)
[2019-07-29] MEDS: FAMOTIDINE 20 MG TAB PO SCH (08:32)
[2019-07-29] MEDS: MAALOX 30 ML SUSP *UDC PO PRN (08:32)
[2019-07-29] MEDS: PREGABALIN 75 MG CAP(LYRICA) PO SCH (08:32)
[2019-07-29] MEDS: FERROUS SULFATE 325MG TAB PO SCH (08:33)
[2019-07-29] MEDS: DOCUSATE SODIUM 100 MG CAP PO SCH (08:33)
[2019-07-29] MEDS: ASPIRIN 81 MG ENTERIC TAB PO SCH (08:33)
[2019-07-29] MEDS ORDERED: LEVA750T7 PO (11:51)
--- NOTE | 2019-07-29 18:50 | DS.PDOC ---
Discharge Summary General Date of Admission Jul 25, 2019 at 15:46 Date of Discharge 07/29/19 Attending Physician: JANEL CANALES MD Discharge Summary PROCEDURES PERFORMED DURING STAY: [None]. ADMITTING DIAGNOSES: 1. MARLO, PNA DISCHARGE DIAGNOSES: 1. MARLO, PNA COMPLICATIONS/CHIEF COMPLAINT: Pneumonia. HISTORY OF PRESENT ILLNESS: 63 y.o female with PMH of MALT Lymphoma, COPD, GI bleed & HTN was admitted for MARLO & Pneumonia. MARLO was successfully treated w/ IV fluids and renal function has returned to baseline. She was initially treated w/ Zithromax/Ceftriaxone for PNA but remained febrile, antibiotics switched to Meopenem (MRSA PCR negative) with subsequent resolution of fevers, has been afebrile for ~48 hours. Patient with significant clinical improvement as well, ambulating without dyspnea or O2 desaturation. Her antibiotics will be switched to oral Levaquin to complete her regimen. She is clinically and hemodynamically stable for discharge; patient is advised to return to the hospital/call her PCP if her symptoms worsen or she becomes febrile again. Patient is agreeable to discharge plan with close outpatient follow up. HOSPITAL COURSE: as above DISCHARGE MEDICATIONS: Please see below. ALLERGIES: Please see below. PHYSICAL EXAMINATION: VITAL SIGNS: Please see below. GENERAL: No distress, obese HEENT: Normocephalic, atraumatic, moist mucous membranes NECK: Supple CARDIOVASCULAR EXAMINATION: S1, S2, tachycardic RESPIRATORY EXAMINATION: Scattered rhonchi, no wheezing ABDOMINAL EXAMINATION: Soft, nontender, nondistended, positive bowel sounds EXTREMITIES: Range of motion intact SKIN: No rash NEUROLOGICAL EXAMINATION: Alert and oriented 3, no focal deficits PSYCHIATRIC EXAMINATION: Calm and cooperative LABORATORY DATA: Please see below. PROGNOSIS: fair ACTIVITY: As tolerated DIET: cardiac DISCHARGE PLAN: follow up w/ PCP in 1-2 weeks DISPOSITION: 01 Home, Self-Care. DISCHARGE INSTRUCTIONS: 1. as above DISCHARGE CONDITION: Stable TIME SPENT ON DISCHARGE: Greater than 36 minutes. Vital Signs/I&Os Vital Signs Date Time Temp Pulse Resp B/P (MAP) Pulse Ox O2 Delivery O2 Flow Rate FiO2 07/29/19 08:32 138/71 07/29/19 06:00 99.0 104 18 97 Room Air 07/27/19 21:00 2.0 I&O- Last 24 Hours up to 6 AM 07/29/19 06:00 Intake Total 1630 ml Output Total 2900 ml Balance -1270 ml Laboratory Data Labs 24H Laboratory Tests 2 07/29/19 05:49: Nucleated Red Blood Cells % (auto) 0.0, Anion Gap 8, Glomerular Filtration Rate 58.9, Calcium Level 8.6L, Phosphorus Level 4.1#, Magnesium Level 2.1 CBC/BMP Laboratory Tests 07/29/19 05:49 Microbiology Microbiology 07/26/19 Blood Culture - Preliminary, Resulted No Growth after 72 hours. All specime... 07/25/19 Respiratory Virus Panel (PCR) ([facility]) - Final, Complete 07/25/19 Blood Culture - Preliminary, Resulted No Growth after 72 hours. All specime... Discharge Medications Scheduled Aspirin (Aspirin EC) 81 Mg Tablet.dr, 81 MG PO DAILY, (Reported) Chlorthalidone (Chlorthalidone) 25 Mg Tablet, 25 MG PO DAILY, (Reported) Famotidine (Famotidine) 40 Mg Tablet, 40 MG PO DAILY, (Reported) Ferrous Sulfate (Iron) 325 Mg Tablet, 325 MG PO DAILY, (Reported) Fluticasone Furoate (Arnuity Ellipta) 200 Mcg Blst.w.dev, 1 PUFF INH DAILY, (Reported) Levofloxacin (Levaquin) 750 Mg Tablet, 1 TAB PO DAILY Lisinopril (Lisinopril) 10 Mg Tablet, 10 MG PO DAILY, (Reported) Pantoprazole Sodium (Pantoprazole Sodium) 40 Mg Tablet.dr, 40 MG PO BID, (Reported) Pregabalin (Pregabalin) 75 Mg Capsule, 75 MG PO BID, (Reported) Ropinirole HCl (Ropinirole HCl) 1 Mg Tablet, 1 MG PO QHS, (Reported) Rosuvastatin Calcium (Rosuvastatin Calcium) 20 Mg Tablet, 20 MG PO DAILY, (Reported) Tiotropium Br/Olodaterol HCl (Stiolto Respimat Inhal [employer]) 4 Gm Mist.inhal, 2 PUFF INH DAILY, (Reported) Scheduled PRN Acetaminophen (Acetaminophen ER) 650 Mg Tablet.er, 650 MG PO TID PRN for PAIN, (Reported) Ondansetron HCl (Ondansetron HCl) 8 Mg Tablet, 8 MG PO Q6H PRN for NAUSEA OR VOMITING TAKE ONE TABLET EVERY 6 HOURS NEEDED FOR NAUSEA. Prochlorperazine Maleate (Prochlorperazine Maleate) 10 Mg Tablet, 10 MG PO Q8H PRN for NAUSEA OR VOMITING TAKE ONE TABLET EVERY 8 HOURS NEEDED FOR NAUSEA. Allergies Coded Allergies: No Known Allergies (Verified , 02/14/03) JANEL CANALES MD Jul 29, 2019 18:50
== END 2019-07-29 14:55 | disposition home or self-care (01) | DRG 194 ==
LOC: M ED 12:11 → M ED INP 15:46 → ENRESERVDT 16:03 → ENRESERVTM 16:03 → M MS5PR 18:50
PROVIDERS: ADMIT Internal Medicine; ATTEND Internal Medicine
DX: J18.9 Pneumonia, unspecified organism (principal); N17.9 Acute kidney failure, unspecified; C85.10 Unspecified B-cell lymphoma, unspecified site; J44.9 Chronic obstructive pulmonary disease, unspecified; I10 Essential (primary) hypertension; Z79.82 Long term (current) use of aspirin; Z79.899 Other long term (current) drug therapy; K21.9 Gastro-esophageal reflux disease without esophagitis; G62.9 Polyneuropathy, unspecified; Z79.52 Long term (current) use of systemic steroids; G25.81 Restless legs syndrome; K44.9 Diaphragmatic hernia without obstruction or gangrene

== ENCOUNTER 2019-09-06 08:44 | Emergency (ER) | payer MEDICAID, MEDICARE ==
[~2019-09-06] VITALS: Ht 162.6 cm; Wt 92.2 kg
[~2019-09-06 08:44] MED LIST changes: +ACET1TAB37 PO; +DEXA10VL IV; +DOXO2INJ IV; +FAMO40TA3 PO; +LEVA750T7 PO; +ONDA8TAB10 PO; -ONDA8TAB7 PO; +RITU50VL IV; +[UNRECOGNIZED DRUG - CODE] IV; +[UNRECOGNIZED DRUG - CODE] IV
[2019-09-06] MEDS: LEVALBUTEROL 1.25 MG/0.5 ML CONCENTRATE NEB NEB PRN ×2 (09:58→10:28)
[2019-09-06 10:45] LABS: HEMATOCRIT 35.8 % (36.0-47.0); HEMOGLOBIN 11.5 g/dl (12.0-15.5); MEAN CORPUSCULAR HGB CONC 32.1 g/dl (32.0-36.5); MEAN CORPUSCULAR VOLUME 87.3 fl (80.0-96.0); PLATELET COUNT, AUTOMATED 137 10^3/uL (150-450); WHITE BLOOD COUNT 9.1 10^3/uL (4.0-10.0)
--- NOTE | 2019-09-06 10:50 | REP ---
CHEST, TWO VIEWS: COMPARISON: 07/27/2019 There is no evidence of acute infiltrate or pulmonary edema. The heart is normal in size. Mediastinal silhouette is unremarkable. Moderate size hiatal hernia is present. The right central venous catheter is again noted with the tip in the superior vena cava. IMPRESSION: No acute infiltrate. Electronically Signed by Taiwo Bashir MD 09/08/2019 11:38 A
[2019-09-06 11:05] LABS: CREATININE FOR GFR 1.44 MG/DL (0.55-1.30); GLOMERULAR FILTRATION RATE 39.1 (>45); POTASSIUM SERUM 3.3 MEQ/L (3.5-5.1)
[2019-09-06 11:09] LABS: ALBUMIN 4.2 GM/DL (3.2-5.2); ALT/SGPT 25 U/L (12-78); BILIRUBIN,DIRECT 0.1 MG/DL (0.0-0.2); BILIRUBIN,TOTAL 0.3 MG/DL (0.2-1.0); CK-MB VALUE MASS < 1.0 NG/ML (<3.6); CPK CREATINE PHOSPHOKINASE 25 U/L (26-192); NT-PRO BNP 176 PG/ML (<125); TROPONIN I < 0.02 NG/ML (< 0.10)
[2019-09-06 11:12] LABS: INFLUENZA A AMPLIFICATION NEGATIVE (NEGATIVE); INFLUENZA B AMPLIFICATION NEGATIVE (NEGATIVE)
[2019-09-06 11:16] LABS: ATYPICAL LYMPH 2 % (0-5); EOSINOPHILS 1 % (0-3); LYMPHOCYTES 19 % (16-44); METAMYELOCYTES 4 % (0-0); MONOCYTES 1 % (0-5); MYELOCYTES 1 % (0-0); NEUTROPHILS 67 % (28-66); PLATELET ESTIMATE DECREASED (NORMAL)
[2019-09-06 11:17] LABS: ANISOCYTOSIS 1+; MICROCYTOSIS 1+
[2019-09-06] MEDS ORDERED: NS 500 ML IV ONE (11:45)
[2019-09-06] MEDS ORDERED: ISOVUE-370 76% 100ML VIAL (Q9967) As Ordered ONE (13:10)
--- NOTE | 2019-09-06 13:51 | REP ---
The of the chest with IV contrast, CT pulmonary angiography: There are no emboli in the pulmonary trunk or central pulmonary arteries. There are no emboli in the pulmonary lobe M are segment branches. The The shon bronchovascular infiltrates in the right lung identified on 07/25/2019 have significantly improved. There are no new infiltrates. No pleural effusions. There are no masses or nodules. There is no mediastinal, hilar or axillary lymphadenopathy. The thoracic aorta is unremarkable. Cardiac size is normal. There is no pericardial effusion. There is a fixed hiatal hernia, unchanged. Within the visualized upper abdomen. There are surgical clips in the gallbladder fossa. The visualized areas of the liver, pancreas and spleen are unremarkable. There is no adrenal mass. Impression: There are no pulmonary emboli. There are no acute infiltrates or pleural effusions. The right lung shon bronchovascular infiltrates identified on 07/25/2019 have significantly improved. Fixed hiatal hernia. No adenopathy or mass. Electronically Signed by Taiwo Teran MD 09/06/2019 01:42 P
[2019-09-06 14:16] LABS: LIPASE 89 U/L (73-393)
[2019-09-06] MEDS ORDERED: ONDANSETRON 4MG/2ML VIAL (J2405) IV ONE (15:45)
[2019-09-06] MEDS ORDERED: GI COCKTAIL 50ML BTL(HYOSCYAMINE/MAALOX/LIDOCAINE VISCOUS)(1:3:1) PO ONE (15:45)
[2019-09-06] MEDS ORDERED: PRED10TA2 PO (16:24)
[2019-09-06 16:48] VITALS: BP 137/89
--- NOTE | 2019-09-06 17:19 | REP ---
CT ABDOMEN AND PELVIS WITHOUT CONTRAST: CT abdomen and pelvis is performed without IV contrast. Sagittal and coronal reconstruction images are performed. There is contrast in both renal collecting systems from the CT angiogram of the chest earlier today. No mass is seen in the liver. The patient has had a prior cholecystectomy. There is no significant biliary dilatation. The spleen is normal in size. Adrenal glands are normal. The pancreas demonstrates no definite abnormality. There is a right renal cyst posteriorly 3.5 cm in diameter. There is no hydronephrosis bilaterally. There is atherosclerotic calcification of the abdominal aorta without aneurysm. There is no adenopathy. There is no free air or free fluid. There is no bowel wall thickening. There is no appendicitis. There is no free air or free fluid. There is no bowel wall thickening. There is no appendicitis. No pelvic mass is seen. Urinary bladder is mildly distended and grossly unremarkable. IMPRESSION: No acute abnormalities are detected. Electronically Signed by Taiwo Bashir MD 09/08/2019 12:10 P
--- NOTE | 2019-09-06 18:45 | ECGEPIP ---
[facility] - ED Test Date: 2019-09-06 Pat Name: JAI FLORES Department: Room: - Gender: Female Director [employer]: em : 1955 Requested By: MAYTE CHATMAN Order Number: [id number] Reading MD: Alexsander Angulo Measurements Intervals [place] Rate: 94 P: 59 NM: 138 QRS: -3 QRSD: 86 T: 19 QT: 354 QTc: 444 Interpretive Statements SINUS RHYTHM MINIMAL VOLTAGE CRITERIA FOR LVH, CONSIDER NORMAL VARIANT NONSPECIFIC T-WAVE ABNORMALITY SIMILAR TO 07/25/19 Electronically Signed on 09-06-2019 18:45:03 EST by Alexsander Angulo
== END 2019-09-06 17:00 | disposition home or self-care (01) ==
LOC: M ED 08:44
DX: R06.00 Dyspnea, unspecified (principal); I10 Essential (primary) hypertension; J44.9 Chronic obstructive pulmonary disease, unspecified; J45.909 Unspecified asthma, uncomplicated; K21.9 Gastro-esophageal reflux disease without esophagitis; C85.10 Unspecified B-cell lymphoma, unspecified site; Z92.21 Personal history of antineoplastic chemotherapy; Z87.891 Personal history of nicotine dependence
CPT/HCPCS: 36600; 71046; 71275; 74176; 80047; 80048; 80076; 82550; 82553; 82803; 83605; 83690; 83880; 84484; 85025; 87040; 87486; 87502; 87581; 87633; 87798; 93005; 93041; 94640; 96361; 96374; 99285; J2405; Q9967

== ENCOUNTER → 2019-09-14 | Outpatient (CLI) | payer MEDICARE ==
[~2019-09-14] MED LIST changes: +POTA10TA17 PO; +PRED10TA2 PO; +REGL10TA6 PO; -ROPI1TAB PO; +ROPI1TAB3 PO
--- NOTE | 2019-09-14 13:29 | REP ---
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 Comparisons: Comparison PET/CT study June 23, 2019. Comparison CT chest, abdomen and pelvis 06 September 2019. TECHNIQUE: 67 minutes following the intravenous injection of a 9.25 mCi dose of F-18 FDG, three-dimensional PET scintigraphy is acquired from the skull base to the proximal thighs. Triplanar noncontrast CT scanning is acquired through the same anatomic range for attenuation correction, and image registration with scan parameters optimized to minimize radiation exposure to the patient. PET scintigraphy and CT datasets were fused and displayed on a workstation with multiplanar and projection display capability. PET/CT Findings: Head and neck soft tissues are unremarkable. No abnormal intrathoracic hypermetabolic uptake is seen. At the level where the previous PET/CT study showed mass effect and hypermetabolic uptake in the distal antrum there is significant improvement. A very small nodular focus of slightly increased uptake is seen with maximum standard uptake value 4.96. Previously 8.53. No significant soft tissue mass is seen here. No other abnormal hypermetabolic uptake is seen in the abdomen or pelvis. This study is otherwise unremarkable. Impression: Significant improvement. A small zone of residual mildly hypermetabolic uptake is seen at the level of the gastric antrum. Otherwise negative PET scintigraphy. Electronically Signed by Joe Heller MD 09/14/2019 06:55 P
== END ==
LOC: M PLARAD 08:02
PROVIDERS: ATTEND Internal Medicine Hematology & Oncology
DX: C85.10 Unspecified B-cell lymphoma, unspecified site (principal)
CPT/HCPCS: 78815; A9552

== ENCOUNTER → 2019-09-15 | Outpatient (REF) | payer MEDICARE ==
[~2019-09-15] MED LIST changes: +ROPI1TAB PO; -ROPI1TAB3 PO
[2019-09-15 17:38] LABS: CALCIUM LEVEL 8.1 MG/DL (8.8-10.2); CREATININE FOR GFR 1.02 MG/DL (0.55-1.30); GLOMERULAR FILTRATION RATE 58.3 (>45)
== END ==
LOC: M LABDRWAD 16:25
PROVIDERS: ATTEND Nurse Practitioner Adult Health
DX: E87.6 Hypokalemia (principal)

== ENCOUNTER → 2019-10-15 | Outpatient (CLI) | payer MEDICAID, MEDICARE ==
[~2019-10-15] MED LIST changes: +AMLO2.5T3 PO; -ROPI1TAB PO; +ROPI1TAB3 PO
--- NOTE | 2019-10-15 13:45 | REP ---
RADIONUCLIDE VENTRICULOGRAM: HISTORY: B-cell lymphoma. TECHNIQUE: 24.3 mCi technetium 99m in-vitro labeled RBCs (UltraTag method) is administered. Anterior, DOMINIK, and left lateral ventriculography is acquired and semi automated processing was acquired. FINDINGS: The calculated ejection fraction is 61.5% for the left ventricle which is normal. No wall motion abnormalities are seen. IMPRESSION: Normal radionuclide ventriculography. Left ventricular ejection fraction 61.5%. Electronically Signed by Joe Heller MD 10/15/2019 06:45 P
== END ==
LOC: M RAD 09:33
PROVIDERS: ATTEND Internal Medicine Hematology & Oncology
DX: C85.10 Unspecified B-cell lymphoma, unspecified site (principal)
CPT/HCPCS: 78472; A9560

== ENCOUNTER → 2019-11-04 | Outpatient (REF) | payer MEDICARE, MEDICAID ==
[2019-11-04 12:51] LABS: ALBUMIN 3.6 GM/DL (3.2-5.2); ALT/SGPT 32 U/L (12-78); BILIRUBIN,DIRECT 0.2 MG/DL (0.0-0.2); BILIRUBIN,TOTAL 0.6 MG/DL (0.2-1.0); BLOOD UREA NITROGEN 24 MG/DL (7-18); CREATININE FOR GFR 0.91 MG/DL (0.55-1.30); GLOMERULAR FILTRATION RATE > 60.0 (>45); TOTAL PROTEIN 6.5 GM/DL (6.4-8.2)
== END ==
LOC: M LABDRWAD 12:17
PROVIDERS: ATTEND Internal Medicine Gastroenterology
DX: C16.3 Malignant neoplasm of pyloric antrum (principal)

== ENCOUNTER → 2019-11-23 | Outpatient (CLI) | payer MEDICAID, MEDICARE ==
--- NOTE | 2019-11-25 11:51 | REP ---
PET/CT: HISTORY: Restaging lymphoma, extranodal gastric malt lymphoma. COMPARISONS: Comparison PET/CT study September 14, 2019. TECHNIQUE: 45 minutes following the intravenous injection of a 8.11 mCi dose of F-18 FDG, three-dimensional PET scintigraphy is acquired from the skull base to the proximal thighs. Triplanar noncontrast CT scanning is acquired through the same anatomic range for attenuation correction, and image registration with scan parameters optimized to minimize radiation exposure to the patient. PET scintigraphy and CT datasets were fused and displayed on a workstation with multiplanar and projection display capability. PET/CT FINDINGS: Head and neck soft tissues remain unremarkable. There is no abnormal hypermetabolic uptake within the thorax. A large hiatal hernia is again seen. In the abdomen and pelvis, there is normal hepatic, gastrointestinal, splenic, and genitourinary tract uptake. No abnormal hypermetabolic uptake is seen in the abdomen or pelvis. In the region of the gastric antrum along the inferior edge of the left lobe of the liver there is a focus of uptake which appears to be in the gastric mucosa. Maximum standard uptake value is 5.31. No mass effect or meat mural thickening is visible. Elsewhere in the abdomen and pelvis, normal gastrointestinal mucosal uptake ranges from 3.8-5.8. Gastric mucosal uptake elsewhere in the stomach is in the range of 3.8. This focus in the gastric antrum may well be a normal physiologic gastric mucosal uptake. The findings here are similar to the most recent prior study of September 14, 2019. IMPRESSION: Uptake in the gastric antral mucosa is again seen. This may be physiologic. There is no evidence of mass effect on accompanying CT images. No new area of hypermetabolic uptake is seen. Electronically Signed by Joe Heller MD 11/25/2019 01:13 P
== END ==
LOC: M PLARAD 07:29
PROVIDERS: ATTEND Internal Medicine Hematology & Oncology
DX: C85.99 Non-Hodgkin lymphoma, unspecified, extranodal and solid organ sites (principal)
CPT/HCPCS: 78815; A9552

== ENCOUNTER → 2019-11-24 | Outpatient (CLI) | payer MEDICAID, MEDICARE ==
[~2019-11-24] MED LIST changes: +GASTROGRAFIN SOLUTION 30ML (Q9963) As Ordered ONE; +ISOVUE-370 76% 100ML VIAL (Q9967) As Ordered ONE
--- NOTE | 2019-11-25 08:12 | REP ---
Clinical: Lymphoma. Restaging. Technique: Axial contrast enhanced images from the thoracic inlet to the upper abdomen with coronal and sagittal re-formations using 100 ml Isovue 370 intravenous contrast material followed by CT of the abdomen and pelvis. Comparison: 09/06/2019. Findings: Emphysematous changes along with chronic age-related interstitial changes are noted throughout the lung ward without focal consolidation or effusion. Few scattered small ill-defined nonspecific nodules are identified measuring up to approximately 3 mm (left lower lobe image 69). Small area of atelectasis along the medial left lower lobe (image 71) is also identified. No axillary, hilar, or mediastinal adenopathy is appreciated. Large hiatal hernia again noted. Further evaluation of the mediastinum demonstrates stable atherosclerotic changes to the thoracic aorta and coronary arteries without aortic aneurysm/dissection, cardiomegaly or pericardial effusion. Surrounding musculoskeletal structures are intact without focal abnormality. [id number] identified with tip in the SVC. Impression: 1. Very small scattered nonspecific nodules measuring up to approximately 3 mm most pronounced in the left lower lobe may represent sequelae of prior pneumonitis. However, a short-term 3-6 month follow-up may be warranted. 2. No adenopathy, consolidation or effusion. Electronically Signed by James Mancilla MD 11/25/2019 08:04 A
== END ==
LOC: M RAD 09:19
PROVIDERS: ATTEND Internal Medicine Hematology & Oncology
DX: C85.90 Non-Hodgkin lymphoma, unspecified, unspecified site (principal)
CPT/HCPCS: 71260; 74178; Q9963; Q9967

== ENCOUNTER → 2019-12-28 | Outpatient (CLI) | payer MEDICAID, MEDICARE ==
[~2019-12-28] MED LIST changes: +CLAR1TAB13 PO; +COLA100C5 PO; -GASTROGRAFIN SOLUTION 30ML (Q9963) As Ordered ONE; -ISOVUE-370 76% 100ML VIAL (Q9967) As Ordered ONE; +PANT40TA29 PO; -PANT40TA3 PO; +VIT D PO
== END ==
LOC: M LABSMTC 10:00
PROVIDERS: ATTEND Anesthesiology
DX: Z03.818 Encounter for observation for suspected exposure to other biological agents ruled out (principal); Z11.59 Encounter for screening for other viral diseases

== ENCOUNTER 2019-12-31 14:18 | Day surgery (SDC) | payer MEDICARE ==
[~2019-12-31] VITALS: Ht 162.6 cm; Wt 92.4 kg
[~2019-12-31 14:18] MED LIST changes: -CLAR1TAB13 PO; -COLA100C5 PO; +NS 1,000 ML IV ONE; -PANT40TA29 PO; +PANT40TA3 PO; -VIT D PO
[2019-12-31] MEDS ORDERED: LIDOCAINE 2% 100MG/5ML SDV (FOR ANES.) As Ordered ONE ×2 (14:49→15:05)
[2019-12-31] MEDS ORDERED: propofoL 200 MG/20 ML VIAL As Ordered ONE (14:49)
--- NOTE | 2019-12-31 15:07 | ROOR ---
Patient Name: Violetta Mckeon Procedure Date: 12/31/2019 2:50 PM Date of : 1955 Age: 64 Room: [facility] Gender: Female Note Status: Finalized Procedure: Upper GI endoscopy Indications: Follow-up of MALT lymphoma due to H. pylori Providers: Blado Ruvalcaba MD Referring MD: Montserrat Crowe NP Requesting Provider: Medicines: Monitored Anesthesia Care Complications: No immediate complications. Procedure: Pre-Anesthesia Assessment: - Prior to the procedure, a History and Physical was performed, and patient medications and allergies were reviewed. The patient is competent. The risks and benefits of the procedure and the sedation options and risks were discussed with the patient. All questions were answered and informed consent was obtained. Patient identification and proposed procedure were verified by the physician, the nurse and the anesthesiologist in the procedure room. Mental Status Examination: alert and oriented. Airway Examination: normal oropharyngeal airway and neck mobility. Respiratory Examination: clear to auscultation. CV Examination: normal. Prophylactic Antibiotics: The patient does not require prophylactic antibiotics. Prior Anticoagulants: The patient has taken no previous anticoagulant or antiplatelet agents. ASA Grade Assessment: II - A patient with mild systemic disease. After reviewing the risks and benefits, the patient was deemed in satisfactory condition to undergo the procedure. The anesthesia plan was to use monitored anesthesia care (MAC). Immediately prior to administration of medications, the patient was re-assessed for adequacy to receive sedatives. The heart rate, respiratory rate, oxygen saturations, blood pressure, adequacy of pulmonary ventilation, and response to care were monitored throughout the procedure. The physical status of the patient was re-assessed after the procedure. The Endoscope was introduced through the mouth, and advanced to the second part of duodenum. The upper GI endoscopy was accomplished without difficulty. The patient tolerated the procedure well. Findings: The Z-line was regular and was found 33 cm from the incisors. A large hiatal hernia was present. Scattered minimal inflammation characterized by erythema and granularity was found in the gastric body and in the gastric antrum. Four biopsies were obtained with cold forceps for Helicobacter pylori testing in the gastric body. No gross lesions were noted in the duodenal bulb and in the second portion of the duodenum. Impression: - Z-line regular, 33 cm from the incisors. - Large hiatal hernia. - Gastritis. - No gross lesions in the duodenal bulb and in the second portion of the duodenum. - Biopsies performed in the gastric body. Recommendation: - Patient has a contact number available for emergencies. The signs and symptoms of potential delayed complications were discussed with the patient. Return to normal activities tomorrow. Written discharge instructions were provided to the patient. - Resume previous diet. - Continue present medications. - Recommend acid suppression medication for 6 weeks. - Await pathology results. - Telephone GI clinic for pathology results in 2 weeks. - Return to primary care physician. Baldo Ruvalcaba MD Baldo Ruvalcaba MD 12/31/2019 3:07:20 PM Electronically signed by Baldo Ruvalcaba MD Number of Addenda: 0 Note Initiated On: 12/31/2019 2:50 PM Estimated Blood Loss: Estimated blood loss was minimal.
[2019-12-31 15:30] VITALS: BP 144/69
== END 2019-12-31 15:39 | disposition home or self-care (01) ==
LOC: M OPP 14:18
PROVIDERS: ATTEND Internal Medicine Gastroenterology
DX: K44.9 Diaphragmatic hernia without obstruction or gangrene (principal); K29.70 Gastritis, unspecified, without bleeding; C88.4 Extranodal marginal zone B-cell lymphoma of mucosa-associated lymphoid tissue [MALT-lymphoma]; B96.81 Helicobacter pylori [H. pylori] as the cause of diseases classified elsewhere; J44.9 Chronic obstructive pulmonary disease, unspecified; I10 Essential (primary) hypertension; K21.9 Gastro-esophageal reflux disease without esophagitis; Z79.899 Other long term (current) drug therapy

== ENCOUNTER → 2020-04-12 | Outpatient (CLI) | payer MEDICARE ==
[~2020-04-12] MED LIST changes: +CLAR1TAB13 PO; +COLA100C5 PO; -NS 1,000 ML IV ONE; +PANT40TA29 PO; -PANT40TA3 PO; +VIT D PO
--- NOTE | 2020-05-10 07:51 | REP ---
CHEST X-RAY CLINICAL: Cough. TECHNIQUE: PA and lateral. COMPARISON: 09/06/2019. FINDINGS: Mediastinum and cardiac silhouette are stable. Infusaport identified with tip in the SVC unchanged. Moderate hiatal hernia noted. The lung ward demonstrate chronic change without focal consolidation, effusion, or pneumothorax. Skeletal structures demonstrate age-related osteopenia and degenerative changes. IMPRESSION: Chronic stable changes. No acute cardiopulmonary process MTDD
== END ==
LOC: M ADAMS 10:54
PROVIDERS: ATTEND Nurse Practitioner Adult Health
DX: J18.9 Pneumonia, unspecified organism (principal)

== ENCOUNTER → 2020-04-24 | Outpatient (CLI) | payer MEDICARE ==
[~2020-04-24] MED LIST changes: +GASTROGRAFIN SOLUTION 30ML (Q9963) As Ordered ONE; +ISOVUE-370 76% 100ML VIAL As Ordered ONE
--- NOTE | 2020-05-11 13:14 | REP ---
CT ABDOMEN AND PELVIS WITH INTRAVENOUS (IV) AND ORAL CONTRAST HISTORY: Lymphoma. COMPARISON: CT study 11/24/2019. PET CT 11/23/2019. CT CONTRAST DOSE: 100 mL of intravenous Isovue-[address] FINDINGS: Preliminary digital scullion chief radiograph is unremarkable. There are clips in the right upper quadrant. A right-sided Infusaport catheter is noted in the chest. There is mild diffuse fatty infiltration of the liver. A fairly large sliding- type hiatal hernia is again noted. No adrenal lesion is seen. No focal liver lesion is observed. The gallbladder is surgically absent. No abnormality is noted in the pancreas. Spleen is normal in size and homogeneous in texture. No gastric mass is seen. There is no evidence of retroperitoneal mass or adenopathy. There is a cyst in the upper pole of the right kidney measuring 3.9 cm in greatest diameter unchanged. Vascular calcification is seen in a normal caliber aorta. Small and large intestinal bowel loops are unremarkable. No abdominal wall defect is seen. No pelvic mass or adenopathy is observed. No uterine or ovarian abnormality is seen. Bone window settings show no bony destructive lesion. IMPRESSION: No evidence of mass or adenopathy. Fatty infiltration of the liver and sliding- type hiatal hernia noted. Right renal cyst. No acute abnormality. MTDD
--- NOTE | 2020-05-11 13:15 | REP ---
CT CHEST WITH INTRAVENOUS (IV) CONTRAST HISTORY: Follow-up lymphoma. COMPARISON: Chest CT study 11/24/2019. CT CONTRAST DOSE: 100 mL of intravenous Isovue-370. CT FINDINGS: There is no evidence of pleural or pericardial effusion. Fatty infiltration of the liver is seen. A moderate size sliding-type hiatal hernia is noted. No hilar or mediastinal mass or adenopathy is seen. Some vascular calcification is seen in the thoracic aorta. No other vascular abnormality is seen. No extrathoracic mass or adenopathy is seen. Lung window settings demonstrate no evidence of mass or adenopathy. The previously noted small subcentimeter nodule in the left lower lobe and the medial basal atelectatic changes in the left lower lobe are no longer apparent. There is minimal fibrosis in the right middle lobe. No suspicious pulmonary nodule is seen. No infiltrate is observed. IMPRESSION: No evidence of mass, infiltrate, or adenopathy. Hiatal hernia and fatty infiltration of the liver again seen. MTDD
== END ==
LOC: M RAD 11:51
PROVIDERS: ATTEND Internal Medicine Hematology & Oncology
DX: C85.90 Non-Hodgkin lymphoma, unspecified, unspecified site (principal); K44.9 Diaphragmatic hernia without obstruction or gangrene; K76.0 Fatty (change of) liver, not elsewhere classified; I70.0 Atherosclerosis of aorta; J84.10 Pulmonary fibrosis, unspecified
CPT/HCPCS: 71260; 74177; Q9963; Q9967

== ENCOUNTER → 2020-05-05 | Outpatient (CLI) | payer MEDICARE ==
[~2020-05-05] MED LIST changes: -GASTROGRAFIN SOLUTION 30ML (Q9963) As Ordered ONE; -ISOVUE-370 76% 100ML VIAL As Ordered ONE; +LIDOCAINE 1% MDV 20ML VIAL As Ordered ONE; +MIDAZOLAM INJ 2MG/2ML VIAL (J2250 PER 1MG) As Ordered ONE; +ceFAZolin 1GM VIAL (J0690 PER 500MG) As Ordered ONE; +diphenhydrAMINE 50MG/ML VIAL (J1200) As Ordered ONE; +fentaNYL 100 MCG/2 ML INJECTION (J3010) As Ordered ONE
--- NOTE | 2020-05-05 10:08 | IRHP ---
[facility] IR Pre-Procedure H & P General Date of Service: May 05, 2020 Procedure: Same Day Surgery Interval History and Physical I have seen the patient and reviewed last H & P performed within 30 days. There is no significant interval change. History of Present Illness Chief Complaint The patient is a 64-year-old female admitted with a reason for visit of Immunoproliferative Disease. PRE-PROCEDURE DIAGNOSIS:lymphoma HEART: normal rate LUNGS: normal breathing at rest. ASA Classification ASA Classification: III-Severe systemic dis. Mallampati Score: II NPO: Yes Problems with prior sedation: No Obstructive Sleep Apnea: No Plan moderate sedation Allergies Coded Allergies: No Known Allergies (Verified , 12/24/19) Home Medications Scheduled Amlodipine Besylate (Amlodipine Besylate), 2.5 MG PO DAILY, (Reported) Chlorthalidone (Chlorthalidone), 25 MG PO DAILY, (Reported) Docusate Sodium (Colace), 100 MG PO DAILY, (Reported) Famotidine (Famotidine), 40 MG PO DAILY, (Reported) Ferrous Sulfate (Iron), 325 MG PO DAILY, (Reported) Fluticasone Furoate (Arnuity Ellipta), 1 PUFF INH DAILY, (Reported) Loratadine/Pseudoephedrine (Claritin-D 24 Hour Tablet), 1 TAB PO DAILY, (Reported) Meloxicam (Meloxicam), 15 MG PO DAILY, (Reported) Pantoprazole Sodium (Pantoprazole Sodium), 40 MG PO BID, (Reported) Pregabalin (Pregabalin), 75 MG PO BID, (Reported) Ropinirole HCl (Ropinirole HCl), 1 MG PO QHS, (Reported) Rosuvastatin Calcium (Rosuvastatin Calcium), 20 MG PO DAILY, (Reported) Tiotropium Br/Olodaterol HCl (Stiolto Respimat Inhal Frankewing), 2 PUFF INH DAILY, (Reported) [vit d 2], 1.25 MG PO 1XWK, (Reported) Scheduled PRN Acetaminophen (Acetaminophen ER), 650 MG PO TID PRN for PAIN, (Reported) Discontinued Medications Lisinopril (Lisinopril), 10 MG PO DAILY, (Reported) Discontinued Reason: Pt states not taking VS, I&O, 24H, Fishbone Vital Signs/I&O Vital Signs Date Time Temp Pulse Resp B/P (MAP) Pulse Ox O2 Delivery O2 Flow Rate FiO2 9/25/20 10:00 82 18 96 Room Air 05/05/20 09:50 2 05/05/20 08:20 97.3 Laboratory Data 24H LABS Laboratory Tests 2 05/05/20 09:30: Lab Scanned Report LAB OTHER ANYI PORTER MD May 05, 2020 10:08
--- NOTE | 2020-05-05 10:10 | POST-OPPD ---
Postoperative Procedure Note Date Of Procedure: May 05, 2020 Time Of Procedure: 10:08 Port Removal / Explant Clinical Information:Lymphoma. Treatment complete. Physician: Dr. Bradley Procedure: The patient was advised of the benefits, risks, and alternatives of the procedure and informed consent was obtained. A time out was performed with verification of the patient's name, MRN, site of procedure, and type of procedure to be performed. The patient was positioned in the supine position on the angiographic table. The site was prepped and draped in the usual sterile fashion. Moderate sedation was performed by the physician including the presence of an independent trained observer that assisted in monitoring the patient's level of consciousness and physiological status. Following the administration of fentany l and Versed the physician spent 30 minutes of continuous dyjr-ag-cfon time with the patient. A antique furniture repairer radiograph reveals a right sided port. The soft tissues overlying the port were anesthetized with lidocaine. An incision was made over the port using a 15 blade scalpel in the location of the prior incision. The catheter was then freed with blunt dissection and extracted. Pressure was applied to obtain hemostasis. The port was then freed with blunt dissection and subsequently removed. There were no signs of infection. After hemostasis was achieved, the incision was closed with interrupted deep 3-0 Vicryl sutures and Monocryl, Steri-Strip and glue. The site was cleansed and covered with a sterile dressing. The patient tolerated the procedure well and was returned to the PRU in stable condition. EBL:Less than 5 mL Complications:None. Conclusions: 1. Successful explant of a right-sided port. 2. No signs of infection. Thank you for this referral ANYI BRADLEY MD May 05, 2020 10:10
[2020-05-05 11:30] VITALS: BP 145/80
== END ==
LOC: M IRPRO 08:13
PROVIDERS: ATTEND Radiology Diagnostic Radiology
DX: Z45.2 Encounter for adjustment and management of vascular access device (principal); C85.90 Non-Hodgkin lymphoma, unspecified, unspecified site; Z79.899 Other long term (current) drug therapy; Z88.8 Allergy status to other drugs, medicaments and biological substances
CPT/HCPCS: 36590; 99152; 99153; J0690; J1644; J2250; J3010

== ENCOUNTER → 2020-05-20 | Outpatient (CLI) | payer MEDICARE ==
[~2020-05-20] MED LIST changes: -LIDOCAINE 1% MDV 20ML VIAL As Ordered ONE; -MIDAZOLAM INJ 2MG/2ML VIAL (J2250 PER 1MG) As Ordered ONE; -ceFAZolin 1GM VIAL (J0690 PER 500MG) As Ordered ONE; -diphenhydrAMINE 50MG/ML VIAL (J1200) As Ordered ONE; -fentaNYL 100 MCG/2 ML INJECTION (J3010) As Ordered ONE
== END ==
LOC: M LABSMTC 09:46
PROVIDERS: ATTEND Orthopaedic Surgery
DX: Z01.812 Encounter for preprocedural laboratory examination (principal); Z20.828 Contact with and (suspected) exposure to other viral communicable diseases

== ENCOUNTER → 2020-05-26 | Outpatient (CLI) | payer MEDICARE | LOC: M LABSMTC 09:39 | PROVIDERS: ATTEND Orthopaedic Surgery | DX: Z01.812 Encounter for preprocedural laboratory examination (principal); Z20.828 Contact with and (suspected) exposure to other viral communicable diseases ==

== ENCOUNTER → 2020-11-10 | Outpatient (CLI) | payer MEDICARE ==
[~2020-11-10] MED LIST changes: +LISI10TA22 PO; -LISI10TA4 PO
--- NOTE | 2020-11-10 12:47 | REPMRS ---
Patient History The patient states she had a clinical breast exam in 09/2020 Patient is postmenopausal, has history of stomach cancer at age 64, and had previous chemotherapy at age 64. Family history of breast cancer at age 48 in sister, endometrial cancer at age 40 in mother, prostate cancer at age 60 in father, unknown cancer at age 50 in brother, endometrial cancer in maternal grandmother. Took unspecified hormones for 1 year. 3D TOMOSYNTHESIS WAS PERFORMED. The [facility] lifetime risk for breast cancer is 9.5%. Volpara breast density a. Digital Woman Screen Mammo: November 10, 2020 - Exam #: [id number] Bilateral CC and MLO view(s) were taken. Technologist: Zandra Blank, Technologist Prior study comparison: May 04, 2018, bilateral digital mammo screening bilat, performed at [facility]. April 28, 2017, bilateral digital mammo screening bilat, performed at [facility]. FINDINGS: There are scattered fibroglandular densities. There has been no change in the appearance of the mammogram from the prior studies. There is a mild amount of residual fibroglandular tissue which is fairly symmetric. There is no interval development of dominant mass, architectural distortion, or clustered microcalcification suggestive of malignancy. Assessment: BI-RADS/ACR category 1 mammogram. Negative Mammogram. Recommendation Routine screening mammogram in 1 year (for women over age 40). This mammogram was interpreted with the aid of an FDA-approved computer-aided dectection system. Electronically Signed By: Taiwo Bashir MD 11/10/20 [id number]
== END ==
LOC: M WHC 11:38
PROVIDERS: ATTEND Nurse Practitioner Adult Health
DX: Z12.31 Encounter for screening mammogram for malignant neoplasm of breast (principal); Z80.3 Family history of malignant neoplasm of breast; Z80.49 Family history of malignant neoplasm of other genital organs

== ENCOUNTER → 2020-11-13 | Outpatient (CLI) | payer MEDICARE ==
--- NOTE | 2020-11-13 09:08 | REP ---
INDICATION: PANLOBULAR EMPHYZEMA COMPARISON: 04/24/2020 TECHNIQUE: Axial noncontrast images from the thoracic inlet to the upper abdomen with coronal and sagittal reformations. This CT examination was performed using the following dose reduction techniques: Automated exposure control, adjustment of mA and/or kv according to the patient's size, and use of iterative reconstruction technique. FINDINGS: Stable chronic moderate/early advanced emphysematous changes are again noted along with scattered interstitial scarring. No acute consolidation, significant nodule or mass. No effusion. No pneumothorax. A moderate/large sliding hiatal hernia is noted. No obvious adenopathy. Atherosclerotic changes to the thoracic aorta and coronary arteries noted without aortic aneurysm or cardiomegaly. No pericardial effusion. Surrounding musculoskeletal structures demonstrate age-related degenerative changes. IMPRESSION: 1. Chronic relatively stable diffuse emphysematous changes. 2. No acute mediastinal or pleuroparenchymal process. 3. Moderate/large sliding hiatal hernia again noted. <Electronically signed by James Mancilla > 11/13/20 [id number]
== END ==
LOC: M RAD 08:19
PROVIDERS: ATTEND Physician Assistant
DX: J43.1 Panlobular emphysema (principal); K44.9 Diaphragmatic hernia without obstruction or gangrene

== ENCOUNTER → 2021-01-10 | Outpatient (CLI) | payer MEDICARE ==
[~2021-01-10] MED LIST changes: +ALBU8.5H INH; +BLAC1CAP2 PO
== END ==
LOC: M LABSMTC 11:25
PROVIDERS: ATTEND Anesthesiology
DX: Z01.818 Encounter for other preprocedural examination (principal); Z11.52 Encounter for screening for COVID-19

== ENCOUNTER 2021-01-15 10:35 | Day surgery (SDC) | payer MEDICARE ==
[~2021-01-15] VITALS: Ht 162.6 cm; Wt 98.9 kg
[~2021-01-15 10:35] MED LIST changes: +NS 1,000 ML IV ONE
[2021-01-15] MEDS ORDERED: propofoL 200 MG/20 ML VIAL As Ordered ONE (12:39)
[2021-01-15] MEDS ORDERED: LIDOCAINE 2% 100MG/5ML SDV (FOR ANES.) As Ordered ONE (12:39)
[2021-01-15] MEDS ORDERED: fentaNYL 100 MCG/2 ML INJECTION (J3010) As Ordered ONE (12:40)
--- NOTE | 2021-01-15 13:28 | ROOR ---
Patient Name: Violetta Mckeon Procedure Date: 01/15/2021 12:47 PM Date of : 1955 Age: 65 Room: [facility] Gender: Female Note Status: Finalized Procedure: Upper GI endoscopy Indications: Follow-up of malignant tumor of the stomach, Follow-up of gastric ulcer Providers: Baldo Ruvalcaba MD Referring MD: Montserrat Crowe NP Requesting Provider: Medicines: Monitored Anesthesia Care Complications: No immediate complications. Procedure: Pre-Anesthesia Assessment: - Prior to the procedure, a History and Physical was performed, and patient medications and allergies were reviewed. The patient is competent. The risks and benefits of the procedure and the sedation options and risks were discussed with the patient. All questions were answered and informed consent was obtained. Patient identification and proposed procedure were verified by the physician, the nurse and the anesthesiologist in the procedure room. Mental Status Examination: alert and oriented. Airway Examination: normal oropharyngeal airway and neck mobility. Respiratory Examination: clear to auscultation. CV Examination: normal. Prophylactic Antibiotics: The patient does not require prophylactic antibiotics. Prior Anticoagulants: The patient has taken no previous anticoagulant or antiplatelet agents. ASA Grade Assessment: II - A patient with mild systemic disease. After reviewing the risks and benefits, the patient was deemed in satisfactory condition to undergo the procedure. The anesthesia plan was to use monitored anesthesia care (MAC). Immediately prior to administration of medications, the patient was re-assessed for adequacy to receive sedatives. The heart rate, respiratory rate, oxygen saturations, blood pressure, adequacy of pulmonary ventilation, and response to care were monitored throughout the procedure. The physical status of the patient was re-assessed after the procedure. The Endoscope was introduced through the mouth, and advanced to the second part of duodenum. The upper GI endoscopy was accomplished without difficulty. The patient tolerated the procedure well. Findings: The examined esophagus was normal. A large hiatal hernia was present. Patchy moderate inflammation characterized by erosions, erythema and granularity was found in the gastric body and in the gastric antrum. Four biopsies were obtained with cold forceps for histology in the gastric antrum, as well as three biopsies in the gastric body. Verification of patient identification for the specimen was done by the physician and nurse using the patient's name, date and medical record number. Estimated blood loss was minimal. The first portion of the duodenum was normal. Biopsies for histology were taken with a cold forceps for evaluation of celiac disease. Impression: - Normal esophagus. - Large hiatal hernia. - Gastritis. - Normal first portion of the duodenum. Biopsied. - Biopsies performed in the gastric antrum and in the gastric body. Recommendation: - Patient has a contact number available for emergencies. The signs and symptoms of potential delayed complications were discussed with the patient. Return to normal activities tomorrow. Written discharge instructions were provided to the patient. - High fiber diet. - Continue present medications. - Await pathology results. - Use Protonix (pantoprazole) 40 mg PO daily for 8 weeks. - Telephone GI clinic for pathology results in 2 weeks. - Return to primary care physician. Procedure Code(s): --- Professional --- 20704, Esophagogastroduodenoscopy, flexible, transoral; with biopsy, single or multiple Diagnosis Code(s): --- Professional --- K44.9, Diaphragmatic hernia without obstruction or gangrene K29.70, Gastritis, unspecified, without bleeding C16.9, Malignant neoplasm of stomach, unspecified K25.9, Gastric ulcer, unspecified as acute or chronic, without hemorrhage or perforation CPT copyright 2019 [employer]. All rights reserved. The codes documented in this report are preliminary and upon coiled tubing operator review may be revised to meet current compliance requirements. Baldo Ruvalcaba MD Baldo Ruvalcaba MD 01/15/2021 1:27:59 PM Electronically signed by Baldo Ruvalcaba MD Number of Addenda: 0 Note Initiated On: 01/15/2021 12:47 PM Estimated Blood Loss: Estimated blood loss was minimal.
[2021-01-15 13:53] VITALS: BP 139/61
== END 2021-01-15 13:50 | disposition home or self-care (01) ==
LOC: M OPP 10:35
PROVIDERS: ATTEND Internal Medicine Gastroenterology
DX: K44.9 Diaphragmatic hernia without obstruction or gangrene (principal); K29.70 Gastritis, unspecified, without bleeding; K25.9 Gastric ulcer, unspecified as acute or chronic, without hemorrhage or perforation; C16.9 Malignant neoplasm of stomach, unspecified; Z79.899 Other long term (current) drug therapy; Z80.3 Family history of malignant neoplasm of breast; Z80.41 Family history of malignant neoplasm of ovary; Z80.42 Family history of malignant neoplasm of prostate; Z87.891 Personal history of nicotine dependence
CPT/HCPCS: 43239; 88305; J3010

== ENCOUNTER 2021-04-02 14:25 | Inpatient (IN) | payer MEDICARE ==
[~2021-04-02] VITALS: Ht 162.6 cm; Wt 99.0 kg
[~2021-04-02 14:25] MED LIST changes: -NS 1,000 ML IV ONE
[2021-04-02] MEDS ORDERED: ONDANSETRON 4MG/2ML VIAL IV ONE (15:00)
[2021-04-02 15:27] LABS: BASO % 0.2 % (0.0-1.0); HEMATOCRIT 43.4 % (36.0-47.0); HEMOGLOBIN 14.2 g/dl (12.0-15.5); LYMPH # 0.6 10^3/uL (1.5-5.0); LYMPH % 3.5 % (24.0-44.0); MEAN CORPUSCULAR HEMOGLOBIN 27.6 pg (27.0-33.0); MEAN CORPUSCULAR HGB CONC 32.7 g/dl (32.0-36.5); MEAN CORPUSCULAR VOLUME 84.4 fl (80.0-96.0); MONO # 1.2 10^3/uL (0.0-0.8); MONO % 7.2 % (2.0-8.0); NEUTROPHILS # 14.3 10^3/uL (1.5-8.5); NEUTROPHILS % 88.4 % (36.0-66.0); PLATELET COUNT, AUTOMATED 284 10^3/uL (150-450); RED BLOOD COUNT 5.14 10^6/uL (4.00-5.40); WHITE BLOOD COUNT 16.1 10^3/uL (4.0-10.0)
[2021-04-02 15:56] LABS: ALBUMIN 4.1 GM/DL (3.2-5.2); BILIRUBIN,DIRECT 0.4 MG/DL (0.0-0.2); BILIRUBIN,TOTAL 0.9 MG/DL (0.2-1.0); CALCIUM LEVEL 9.3 MG/DL (8.8-10.2); CREATININE FOR GFR 1.71 MG/DL (0.55-1.30); GLOMERULAR FILTRATION RATE 31.9 (>45); POTASSIUM SERUM 3.7 MEQ/L (3.5-5.1); TOTAL PROTEIN 7.5 GM/DL (6.4-8.2)
--- NOTE | 2021-04-02 16:09 | REP ---
INDICATION: SBO. COMPARISON: None. TECHNIQUE: Supine and upright with frontal view of the chest FINDINGS: Multiple fluid and gas-filled dilated small bowel loops are seen in the abdomen. The upright view shows these to be in a stepwise fashion. The accompanying frontal view the chest shows no evidence of free subdiaphragmatic air. There is a large hiatal hernia. Lung ward are clear and the pleural angles are sharp. The osseous structures are within normal limits. IMPRESSION: Small-bowel obstruction. <Electronically signed by Deon Abrams > 04/02/21 [id number]
[2021-04-02] MEDS ORDERED: fentaNYL 100 MCG/2 ML INJECTION (J3010) IV ONE (16:55)
[2021-04-02 17:30] LABS: RSV AMPLIFICATION NEGATIVE (NEGATIVE)
[2021-04-02] MEDS ORDERED: BEVE1AER INH (18:00)
[2021-04-02] MEDS ORDERED: ERGO500029 PO (18:00)
[2021-04-02] MEDS ORDERED: HOME MED LIST COMPLETE! XX SCH (18:05)
[2021-04-02] MEDS ORDERED: ONDANSETRON 4MG/2ML VIAL IV PRN (18:20)
--- NOTE | 2021-04-02 19:15 | REPVR ---
PROCEDURE INFORMATION: Exam: CT Abdomen And Pelvis Without Contrast Exam date and time: 04/02/2021 4:18 PM Age: 65 years old Clinical indication: Other: Sbo TECHNIQUE: Imaging protocol: Computed tomography of the abdomen and pelvis without contrast. Radiation optimization: All CT scans at this facility use at least one of these dose optimization techniques: automated exposure control; mA and/or kV adjustment per patient size (includes targeted exams where dose is matched to clinical indication); or iterative reconstruction. COMPARISON: CT ABD PELVIS WITH CONTRAST 04/24/2020 1:37 PM FINDINGS: Liver: There is a diffuse decrease in hepatic parenchymal density, consistent with fatty infiltration. There are no focal liver lesions present. Gallbladder and bile ducts: Cholecystectomy. Pancreas: Normal. No ductal dilation. Spleen: The spleen is normal. Adrenal glands: The adrenal glands are normal. Kidneys and ureters: There is no evidence of hydronephrosis. There is a 3.8 cm simple appearing right renal cortical cyst.No renal, ureteral, or bladder calculi are seen. Stomach and bowel: There is a large type 1 hiatal hernia which contains at least half the stomach. Enteric catheter is looped within the large hiatal hernia. The distal stomach is unremarkable. Diverticulosis coli is noted, with no inflammatory changes to indicate diverticulitis. The colon is nondistended. Question mild colonic wall thickening involving the ascending and transverse colon. There is a distal small bowel obstruction, with transition point in the right lower quadrant (series 201, image 114. No focal mass is detected. There is fecalization of the small bowel contents just proximal to the transition point. Small bowel loops are dilated to a diameter of 4.0 cm. Several air-fluid levels are seen. Appendix: No findings of acute appendicitis. Intraperitoneal space: No free air. No free fluid. Vasculature: Atherosclerotic vascular disease is noted. There is no evidence of an abdominal aortic aneurysm. Lymph nodes: No lymphadenopathy is seen. Urinary bladder: The bladder is nondistended. No intrinsic bladder abnormality is seen. Reproductive: Unremarkable as visualized. Bones/joints: Unremarkable. No acute fracture. IMPRESSION: 1. Distal small bowel obstruction, with transition point in the right lower quadrant. Hepatic steatosis. 2. Diverticulosis coli. 3. Large hiatal hernia containing the at least half the stomach. Enteric catheter is looped within the high hernia. COMMENTS: Consistent with the [employer]'s Incidental Findings Committee white paper (J Am Isai Radiol 2018): Any incidental renal lesion less than 1 cm or classified as too small to characterize, or any incidental cystic renal lesion characterized as simple-appearing, is likely benign. No follow-up imaging is recommended for these lesions per consensus recommendations based on imaging criteria. Electronically signed by: Amara Daly On 04/02/2021 19:15:06 PM
[2021-04-02] MEDS: LR 1,000 ML IV SCH (19:16)
[2021-04-02] MEDS ORDERED: ALBUTEROL 90 MCG/ACT 8GM HFA INHALER INH PRN (19:40)
[2021-04-02] MEDS ORDERED: ACETAMINOPHEN 650MG ER TAB (TYLENOL ARTHRITIS) PO PRN (19:40)
[2021-04-02 20:12] LABS: HEMATOCRIT 41.5 % (36.0-47.0); HEMOGLOBIN 13.7 g/dl (12.0-15.5)
[2021-04-02 20:25] LABS: INR 1.08; PROTHROMBIN TIME 14.4 SECONDS (12.7-14.5)
--- NOTE | 2021-04-02 20:55 | HPEPDOC ---
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 She presents to the emergency department today for a 3-day history of constipation and now she has developed abdominal pains. Typically in the past if she has not had a bowel movement for 1 day she will take Colace, and then have a bowel movement on the subsequent day. She has been doing this routine for years now. However, this is the first time that she has not had a bowel movement in 3 days despite the administration of Colace, and with the development of abdominal pain decided to present to the ER for further evaluation. Abdominal x-ray reveals multiple distended loops of small bowel and air-fluid levels consistent with small bowel obstruction. The only abdominal surgery that she has had in the past is a cholecystectomy. 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 She quit a few years ago when she was diagnosed with gastric cancer. She smoked an e-cigarette for couple years after that, and now about 1 year ago she has completely quit. Denies any alcohol or illicit drug use. FAMILY HISTORY: Brother has Canales's esophagus 1 sister had breast cancer, another sister had lung cancer, both are REVIEW OF SYSTEMS: Constitutional: Patient denies fevers, chills, night sweats, recent weight gain/loss. HEENT: Patient denies blurred or double vision, transient visual disturbances, postnasal drip, epistaxis, sore throat, difficulty chewing or swallowing food. Cardiovascular: Patient denies chest discomfort/pain, palpitations, exertional dyspnea, orthopnea, edema of the extremities, claudication. Respiratory: Patient denies dyspnea, wheezing, cough, hemoptysis, sputum production. Gastrointestinal: Patient admits to nausea, a very small amount of vomiting, constipation, abdominal pain. Denies melena, hematochezia, hematemesis, jaundice. PHYSICAL EXAMINATION: General: Awake, alert, oriented x3. She is in no acute distress. HEENT: Head normocephalic atraumatic, conjunctiva are pink, sclera are nonicteric, buccal mucosa is pink and moist with no lesions in the oropharynx. Hearing is grossly intact to conversation. Respiratory: Clear to auscultation bilaterally with no wheezes, rales, or rhonchi. Cardiovascular: Regular rate and rhythm, with no rubs, gallops, or murmur. Abdomen: Soft, mild to moderate tenderness noted in the middle of the belly, some tympany noted, it does not appear particularly distended at this time, no. Bowel sounds present, but slow/intermittent. Extremities: 2+ pulses in the radial and dorsalis pedis bilaterally. No evidence of clubbing or cyanosis. 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 We will admit the patient to MedSurg Put in NG tube to LIS N.p.o. except for meds, sips, and ice chips Lactated Ringer's 100 and mils per hour At this time I will continue her medications for COPD/asthma including albuterol as needed, and Arnuity Ellipta Continue home medication of pantoprazole for hiatal hernia and GERD Continue pregabalin for chronic neuropathic pain Continue ropinirole for restless leg syndrome We will continue amlodipine for hypertension, however given that we are putting her on bowel rest I will hold her home chlorthalidone Also will hold home dose of Colace, vitamin D, famotidine, ferrous sulfate, meloxicam, and rosuvastatin for the time being to maximize bowel rest Vital Signs Vital Signs Date Time Temp Pulse Resp B/P (MAP) Pulse Ox O2 Delivery O2 Flow Rate FiO2 04/02/21 20:47 111 18 128/74 (92) 94 Room Air 04/02/21 14:26 97.9 Laboratory Data Labs 24H Laboratory Tests 2 04/02/21 15:01: Immature Granulocyte % (Auto) 0.7, Neutrophils (%) (Auto) 88.4H, Lymphocytes (%) (Auto) 3.5L, Monocytes (%) (Auto) 7.2, Eosinophils (%) (Auto) 0.0, Basophils (%) (Auto) 0.2, Neutrophils # (Auto) 14.3H, Lymphocytes # (Auto) 0.6L, Monocytes # (Auto) 1.2H, Eosinophils # (Auto) 0.0, Basophils # (Auto) 0.0, Nucleated Red Blood Cells % (auto) 0.0, Anion Gap 13, Glomerular Filtration Rate 31.9L, Calcium Level 9.3, Total Bilirubin 0.9, Direct Bilirubin 0.4H, Aspartate Amino Transf (AST/SGOT) 23, Alanine Aminotransferase (ALT/SGPT) 40, Alkaline Phosphatase 111, Total Protein 7.5, Albumin 4.1, Albumin/Globulin Ratio 1.2, Lipase 156 04/02/21 16:33: Coronavirus (COVID-19)(PCR) NEGATIVE, Influenza Type A (RT-PCR) NEGATIVE, Influenza Type B (RT-PCR) NEGATIVE, Respiratory Syncytial Virus (PCR) NEGATIVE 04/02/21 19:59: Prothrombin Time 14.4H, Prothromb Time International Ratio 1.08 CBC/BMP Laboratory Tests 04/02/21 15:01 04/02/21 19:59 Home Medications Scheduled Amlodipine Besylate (Amlodipine Besylate) 2.5 Mg Tablet, 2.5 MG PO DAILY Chlorthalidone (Chlorthalidone) 25 Mg Tablet, 25 MG PO DAILY Elderberry Fruit and Flower (Black Elderberry 575 mg Cap) 1 Each Capsule, 1 CAP PO DAILY Ergocalciferol (Vitamin D2) (Vitamin D2) 50,000 Units Cap, 50,000 UNITS PO 1XWK NICOLAS Famotidine (Famotidine) 40 Mg Tablet, 40 MG PO DAILY Ferrous Sulfate (Iron) 325 Mg Tablet, 325 MG PO DAILY Fluticasone Furoate (Arnuity Ellipta) 200 Mcg Blst.w.dev, 1 PUFF INH DAILY Glycopyrrolate/Formoterol Fum (Bevespi Aerosphere Inhaler) 10.7 Gm Hfa.aer.ad, 2 PUFF INH BID Meloxicam (Meloxicam) 15 Mg Tablet, 15 MG PO DAILY Pantoprazole Sodium (Pantoprazole Sodium) 40 Mg Tablet.dr, 40 MG PO BID Pregabalin (Pregabalin) 75 Mg Capsule, 75 MG PO BID Ropinirole HCl (Ropinirole HCl) 1 Mg Tablet, 1 MG PO BID Rosuvastatin Calcium (Rosuvastatin Calcium) 20 Mg Tablet, 20 MG PO QHS Scheduled PRN Acetaminophen (Acetaminophen ER) 650 Mg Tablet.er, 650 MG PO TID PRN for PAIN Albuterol Sulfate (Albuterol Sulfate Hfa) 8.5 Gm Hfa.aer.ad, 2 PUFF INH QID PRN for SHORTNESS OF BREATH Docusate Sodium (Colace) 100 Mg Capsule, 100 MG PO DAILY PRN for CONSTIPATION Loratadine/Pseudoephedrine (Claritin-D 24 Hour Tablet) 1 Each Tab.er.24h, 1 TAB PO DAILY PRN for CONGESTION Allergies Coded Allergies: No Known Allergies (Verified , 12/24/19) A-FIB/CHADSVASC A-FIB History Current/History of A-Fib/PAF?: No DIANE GARZA DO Apr 02, 2021 20:55
--- NOTE | 2021-04-02 21:06 | REP ---
INDICATION: ng placemen COMPARISON: None. TECHNIQUE: Supine views of the abdomen and pelvis. FINDINGS: Distended small bowel in the left mid abdomen consistent with early/partial small bowel obstruction and correlation is recommended. Large hiatal hernia is identified with a nasogastric tube coiled in the hernia within the lower thorax. No free air to suggest perforation. IMPRESSION: Findings consistent with small-bowel obstruction. Nasogastric tube coiled within large paraesophageal gastric hernia in the lower thorax. <Electronically signed by James Mancilla > 04/02/21 [id number]
--- NOTE | 2021-04-02 21:42 | ECGEPIP ---
[facility] - ED Test Date: 2021-04-02 Pat Name: JAI FLORES Department: Room: - Gender: Female Sequins Slinger: DAYNE : 1955 Requested By: Alexsander Sim Order Number: [id number] Reading MD: Alexsander Angulo Measurements Intervals [place] Rate: 97 P: 65 [place]: 138 QRS: 12 QRSD: 84 T: 45 QT: 358 QTc: 454 Interpretive Statements Normal sinus rhythm Nonspecific ST abnormality SIMILAR TO 09/06/19 Electronically Signed on 04-02-2021 21:42:25 EDT by Alexsander Angulo
[2021-04-02 22:15] VITALS: BP 147/92
[2021-04-02] MEDS ORDERED: MORPHINE 4 MG/ML 1ML VIAL/SYRINGE (J2270) IV PRN (22:25)
[2021-04-02] MEDS: PANTOPRAZOLE 40MG TAB (PROTONIX) PO SCH (22:50)
[2021-04-02] MEDS: rOPINIRole 1MG TAB PO SCH (22:50)
[2021-04-02] MEDS: PREGABALIN 75 MG CAP(LYRICA) PO SCH (22:50)
[2021-04-03] MEDS: MORPHINE 2 MG/ML 1ML VIAL (J2270) IV PRN ×2 (04:01→09:20)
--- NOTE | 2021-04-03 05:46 | CR.PDOC ---
General Surgery Consultation Date of Consultation 04/03/21 History and Physical CONSULT REPORT FOR: hospitalist service REASON FOR CONSULTATION: abdominal pain, bowel obstruction HISTORY OF PRESENT ILLNESS: Patient is a 65-year-old female who presented to the emergency room with complaints of about a 2-day history of gradual development of abdominal distention, bloating, crampy abdominal pain and later on nausea and vomiting. She denies any prior episodes of bowel obstruction. She reports feeling constipated secondary to intake of iron for which she was on Colace. For the past 2 days she started feeling bloated, distended. Last bowel movement was Friday which was 3 days prior to presentation which was normal. Her only abdom inal surgery is laparoscopic cholecystectomy performed 2001 which was uneventful. 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 In the emergency room she was worked up and was found to have evidence of bowel obstruction with a transition point at the right lower quadrant area at the distal bowel. She has had upper endoscopy surveillance for her lymphoma as well as colonoscopy recently. PAST MEDICAL HISTORY: 1. MALT lymphoma 2. Cholelithiasis status post cholecystectomy 3. COPD 4. Asthma 5. Known large hiatal hernia with gastroesophageal reflux disease 6. Hypertension 7. Restless leg syndrome, chronic neuropathy on her legs. PAST SURGICAL HISTORY: INCLUDES: 1. Tonsillectomy 2. Cholecystectomy laparoscopic 3. Carpal tunnel surgery 4. Removal of ganglion cyst from her left wrist. PREVIOUS ANESTHESIA REACTIONS: Denies any significant reaction ALLERGIES: Please see below. FAMILY HISTORY: Noncontributory. HOME MEDICATIONS: Please see below. REVIEW OF SYSTEMS: GENERAL: Patient denies any fevers, chills, any unexplained weight loss. HEENT: Denies any problems with vision or hearing. NECK: Denies any neck pain]. CARDIOVASCULAR: Denies chest pain and palpitations. MUSCULOSKELETAL: Denies any back pain, joint pain, reports neuropathy in lower legs. SKIN: Denies rash. NEUROLOGIC: Denies any prior strokes, denies migraine headaches. PSYCHIATRIC: Denies anxiety and depression. HEMATOLOGY/ONCOLOGY: Denies bleeding or clotting disorder. She is not on any anticoagulation. PULMONARY: Reports history of COPD, asthma, not oxygen dependent. GASTROINTESTINAL: See HPI. GENITOURINARY: Denies dysuria, frequency, hematuria and nocturia. ENDOCRINE: Denies polydipsia, polyphagia, polyuria, heat or cold intolerance. INFECTIOUS: Denies any recent upper respiratory tract infection, UTI, need for use of antibiotics. NUTRITION: Reports good appetite. PHYSICAL EXAMINATION: VITALS SIGNS: Please see below. GENERAL APPEARANCE: Patient seen lying in bed, relatively comfortable,, appears in general good health, obese habitus. SKIN: Warm dry. HEENT: Normocephalic. She has a 14 Ukrainian nasogastric tube through her right naris with brownish drainage. NECK: Supple, no thyromegaly. No obvious jugular venous distention. LUNGS: Clear to auscultation bilaterally. No wheezing appreciated. HEART: No chest wall abnormalities. Regular rate and rhythm with no murmurs appreciated. ABDOMEN: Abdomen is obese, soft, moderately distended, most prominent in the up per abdomen, tympanic to percussion. She had prior laparoscopic cholecystectomy and port sites. No port site herniation. No umbilical herniation.. Mildly tender on deep palpation over the periumbilical area, no rebound or guarding.. EXTREMITIES: No significant edema ANCILLARIES: LABORATORY DATA: Please see below. WBC 16,000 IMAGING STUDIES: [ CT abdomen and pelvis. I reviewed the images myself as well as compared it to the read of the oncologist. This is consistent with bowel obstruction with transition point at the distal small bowel over the right lower quadrant area. She has a large hiatal hernia containing the stomach with air-fluid level and there. IMPRESSION AND PLAN: Small bowel obstruction Patient history as well as imaging studies consistent with bowel obstruction. Her only prior surgery is that of a laparoscopic cholecystectomy where port sites are all up above the umbilicus. I do not think adhesions explained the rationale for the bowel obstruction. She does have a history of a MALT lymphoma which is fully treated. She has also had a most recent upper endoscopy performed by Dr. Ruvalcaba performed for follow-up of her MALT lymphoma showing a large hiatal hernia, chronic gastritis showing no further presence of MALT lymphoma. Her last colonoscopy was in 2019 and it was documented that she had a normal terminal ileum with a small tubular adenomatous polyp removed in the transverse colon. As part of her work-up for her lymphoma, she had a PET/CT d one September 2019 as well as her most recent CT of the chest abdomen and pelvis were also reviewed in the [facility]. In any case, she is not showing any signs of threatened bowel, no peritonitis. No free air, no free fluid. It remains to be seen whether she will improve with nonoperative therapy. A small nasogastric tube (14 Ukrainian) has been placed and this is located in the stomach. Efficacy of this may be limited by the presence of the hiatal hernia containing half her stomach. We will continue this on low intermittent wall suction and follow her up clinically as well as radiographically with serial x-rays. I discussed with her the rationale for needing surgery in terms of bowel obstruction which includes nonresolution after sufficient period of observation and conservative management which to me is usually at the average 3 or 4 days so long as there is no signs or symptoms or fears of that in bowel. Given that the location of her port sites does not explain her bowel obstruction, a small bowel follow-through may be helpful if this does not resolve fully. We will follow the patient up with the hospitalist during this admission. Vital Signs Vital Signs Date Time Temp Pulse Resp B/P (MAP) Pulse Ox O2 Delivery O2 Flow Rate FiO2 04/03/21 04:31 16 04/03/21 04:01 Room Air 04/02/21 22:15 97.6 105 147/92 (110) 94 I&Os I&O- Last 24 Hours up to 6 AM 04/03/21 06:00 Intake Total 500 ml Output Total 300 ml Balance 200 ml Laboratory Data Labs 24H Laboratory Tests 2 04/02/21 15:01: Immature Granulocyte % (Auto) 0.7, Neutrophils (%) (Auto) 88.4H, Lymphocytes (%) (Auto) 3.5L, Monocytes (%) (Auto) 7.2, Eosinophils (%) (Auto) 0.0, Basophils (%) (Auto) 0.2, Neutrophils # (Auto) 14.3H, Lymphocytes # (Auto) 0.6L, Monocytes # (Auto) 1.2H, Eosinophils # (Auto) 0.0, Basophils # (Auto) 0.0, Nucleated Red Blood Cells % (auto) 0.0, Anion Gap 13, Glomerular Filtration Rate 31.9L, Calcium Level 9.3, Total Bilirubin 0.9, Direct Bilirubin 0.4H, Aspartate Amino Transf (AST/SGOT) 23, Alanine Aminotransferase (ALT/SGPT) 40, Alkaline Phosphatase 111, Total Protein 7.5, Albumin 4.1, Albumin/Globulin Ratio 1.2, Lipase 156 04/02/21 16:33: Coronavirus (COVID-19)(PCR) NEGATIVE, Influenza Type A (RT-PCR) NEGATIVE, Influenza Type B (RT-PCR) NEGATIVE, Respiratory Syncytial Virus (PCR) NEGATIVE 04/02/21 19:59: Prothrombin Time 14.4H, Prothromb Time International Ratio 1.08 CBC/BMP Laboratory Tests 04/02/21 15:01 04/02/21 19:59 Home Medications Scheduled Amlodipine Besylate (Amlodipine Besylate) 2.5 Mg Tablet, 2.5 MG PO DAILY, (Reported) Chlorthalidone (Chlorthalidone) 25 Mg Tablet, 25 MG PO DAILY, (Reported) Elderberry Fruit and Flower (Black Elderberry 575 mg Cap) 1 Each Capsule, 1 CAP PO DAILY, (Reported) Ergocalciferol (Vitamin D2) (Vitamin D2) 50,000 Units Cap, 50,000 UNITS PO 1XWK, (Reported) FRIDAY Famotidine (Famotidine) 40 Mg Tablet, 40 MG PO DAILY, (Reported) Ferrous Sulfate (Iron) 325 Mg Tablet, 325 MG PO DAILY, (Reported) Fluticasone Furoate (Arnuity Ellipta) 200 Mcg Blst.w.dev, 1 PUFF INH DAILY, (Reported) Glycopyrrolate/Formoterol Fum (Bevespi Aerosphere Inhaler) 10.7 Gm Hfa.aer.ad, 2 PUFF INH BID, (Reported) Meloxicam (Meloxicam) 15 Mg Tablet, 15 MG PO DAILY, (Reported) Pantoprazole Sodium (Pantoprazole Sodium) 40 Mg Tablet.dr, 40 MG PO BID, (Reported) Pregabalin (Pregabalin) 75 Mg Capsule, 75 MG PO BID, (Reported) Ropinirole HCl (Ropinirole HCl) 1 Mg Tablet, 1 MG PO BID, (Reported) Rosuvastatin Calcium (Rosuvastatin Calcium) 20 Mg Tablet, 20 MG PO QHS, (Reported) Scheduled PRN Acetaminophen (Acetaminophen ER) 650 Mg Tablet.er, 650 MG PO TID PRN for PAIN, (Reported) Albuterol Sulfate (Albuterol Sulfate Hfa) 8.5 Gm Hfa.aer.ad, 2 PUFF INH QID PRN for SHORTNESS OF BREATH, (Reported) Docusate Sodium (Colace) 100 Mg Capsule, 100 MG PO DAILY PRN for CONSTIPATION, (Reported) Loratadine/Pseudoephedrine (Claritin-D 24 Hour Tablet) 1 Each Tab.er.24h, 1 TAB PO DAILY PRN for CONGESTION, (Reported) Allergies Coded Allergies: No Known Allergies (Verified , 12/24/19) LAURA FERREIRA MD Apr 03, 2021 05:46
[2021-04-03] MEDS: LR 1,000 ML IV SCH (05:49)
[2021-04-03 05:51] VITALS: BP 130/74
[2021-04-03 06:00] VITALS: BP 130/74
[2021-04-03 06:28] LABS: HEMATOCRIT 39.6 % (36.0-47.0); HEMOGLOBIN 12.8 g/dl (12.0-15.5); MEAN CORPUSCULAR HGB CONC 32.3 g/dl (32.0-36.5); MEAN CORPUSCULAR VOLUME 86.7 fl (80.0-96.0); PLATELET COUNT, AUTOMATED 266 10^3/uL (150-450); RED BLOOD COUNT 4.57 10^6/uL (4.00-5.40); WHITE BLOOD COUNT 8.9 10^3/uL (4.0-10.0)
[2021-04-03 06:56] LABS: CALCIUM LEVEL 8.8 MG/DL (8.8-10.2); CREATININE FOR GFR 1.66 MG/DL (0.55-1.30); POTASSIUM SERUM 3.2 MEQ/L (3.5-5.1)
[2021-04-03] MEDS: ADVAIR HFA 230/21MCG INHALER INH SCH ×2 (09:04→20:24)
--- NOTE | 2021-04-03 09:04 | REP ---
INDICATION: ffup sbo, hiatal hernia COMPARISON: None. TECHNIQUE: Upright view of the chest with supine and upright views of the abdomen and pelvis. FINDINGS: Frontal upright view of the chest demonstrates no acute cardiopulmonary process or free air below the diaphragm to suspect pneumoperitoneum. A nasogastric tube appears coiled in a hiatal hernia above the level of diaphragm and than extends just beyond the diaphragm into the left upper quadrant. Bowel gas pattern demonstrates dilated air-filled small bowel suggesting element of small bowel obstruction. Prior cholecystectomy. No organomegaly. No abnormal calcifications. Skeletal structures demonstrate degenerative changes. IMPRESSION: 1. Nasogastric tube coiled as described above may warrant advancement. 2. Findings consistent with small-bowel obstruction. <Electronically signed by James Mancilla > 04/03/21 0900
--- NOTE | 2021-04-03 09:11 | IPNPDOC ---
Text Note Date of Service The patient was seen on 04/03/21. NOTE General surgery. Dr. Werner. The patient is a 65-year-old female admitted with small bowel obstruction. NG tube currently in place. Denies nausea. Denies flatus. States she feels a little less distended today. Afebrile VSS Awake and alert, resting in bed, no acute distress NG tube in place Lungs clear to auscultation S1-S2 regular rate rhythm Abdomen. Soft, mildly distended, tenderness with palpation in the mid abdominal area around the umbilicus and across lower abdomen. No guarding or rebound No edema WBC 8.9, hemoglobin 12.8, platelets 266 Sodium 132, potassium 3.2, BUN 49, serum creatinine 1.66 Assessment/plan SBO The patient is reviewed and examined as per Dr. Werner this morning. NG tube in place. NPO IV fluids as per hospitalist. AXR this am pending. Continue to closely monitor VS,Fishbone, I+O VS, Fishbone, I+O Laboratory Tests 04/02/21 15:01 04/02/21 19:59 04/03/21 06:04 Vital Signs Date Time Temp Pulse Resp B/P (MAP) Pulse Ox O2 Delivery O2 Flow Rate FiO2 04/03/21 06:00 97.8 91 20 130/74 (92) 94 Room Air I&O- Last 24 Hours up to 6 AM 04/03/21 05:59 Intake Total 500 ml Output Total 300 ml Balance 200 ml Jane Auguste Apr 03, 2021 09:11
[2021-04-03] MEDS: ENOXAPARIN 40MG/0.4ML SYRINGE (J1650 PER 10MG) SC SCH (09:19)
[2021-04-03] MEDS: PREGABALIN 75 MG CAP(LYRICA) PO SCH ×2 (09:20→20:44)
[2021-04-03] MEDS: rOPINIRole 1MG TAB PO SCH ×2 (09:20→20:44)
[2021-04-03] MEDS: PANTOPRAZOLE 40MG TAB (PROTONIX) PO SCH ×2 (09:20→20:44)
[2021-04-03] MEDS: KCL 10MEQ/100ML SWI (KRUN) 10 MEQ in IV 1 EA IV SCH ×3 (10:20→12:59)
--- NOTE | 2021-04-03 11:13 | SKHPN ---
[facility] Progress Note Date of Service/Time Date: Apr 03, 2021 Progress Note SUBJECTIVE: Ms. 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 She is placed on NPO except med, sips, and ice chips. She reports sharp, constant, 4-5/10 diffuse abdominal pain. She says her pain is worse in the periumbilical area and when sitting up or lying on her left side. She has only burped a few times. She has not passed gas or had a bowel movement. She denies dysphagia, changes in urination, or chest pain. OBJECTIVE: PHYSICAL EXAMINATION: VITAL SIGNS: Please see below. GENERAL: Patient is seen sitting upright in bed in no acute distress. CARDIOVASCULAR: RRR, Normal S1 and S2. No murmurs, gallops, or rubs. LUNGS: Clear to auscultation bilaterally, no wheezes, crackles, or rhonchi. ABDOMINAL: Soft, obese abdomen, diminished bowel sounds in LLQ, absent in RUQ, RLQ, LUQ. Tenderness to moderate palpation in all 4Qs, more in the RLQ and LLQ. EXTREMITIES: No pedal edema. NEUROLOGICAL: Awake, alert, and oriented X3. LABORATORY DATA: Please see below. IMAGIN04/03/21 Abdomen, Flat/Upright, PA Chest X-ray Report: "NG tube coiled in hiatal hernia may warrant advancement. Findings consistent with small bowel obstruction." ASSESSMENT: 65 y/o female who presented with abdominal pain and was found to have SBO (transition point in RLQ at distal bowel) on CT scan. PLAN: #. SBO - XR showing possible improper NG tube placement in light of hiatal hernia. Dr. Werner reassessed this AM in light of same and felt it was in adequate position. - Continue NPO except meds, sips, ice chips. - Potassium added to LR. - 2 K-runs ordered. - Repeat abdominal X-ray in AM. #. Hiatal hernia/GERD - Continue prantoprazole. #. 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 - In clinical remission since 11/2019 per oncology. #. COPD/Asthma - Continue Adavir and albuterol. #. HTN - Continue amlodipine. #. Chronic neuropathic pain in back and legs - Continue pregabalin. #. Restless leg syndrome - Continue ropinirole. DVT prophylaxis: Lovenox Disposition: Pending clinical improvement and per surgical recommendations, likely 3-4 days. Allergies Coded Allergies: No Known Allergies (Verified , 12/24/19) GME ATTESTATION GME ATTESTATION My faculty preceptor for this patient encounter was physically present during the encounter and was fully available. All aspects of the patient interview, examination, medical decision making process, and medical care plan development were reviewed and approved by the faculty preceptor. The faculty preceptor is aware and concurs with the plan as stated in the body of this note and will attest to such by his/her cosignature. ATTENDING NOTE I, Tete Tellez, have independently examined this patient and performed my own physical exam, as well as reviewed the documentation and edited where necessary. I have discussed in detail with the resident / student the findings and plan of treatment as documented by the resident / student and edited their note. I agree with their findings and treatment plan and have edited their documentation. I will continue to follow the patient during this hospital stay. FERNANDO RUBIO OMS-3 Apr 03, 2021 11:13 TETE TELLEZ MD Apr 03, 2021 17:11
[2021-04-03 14:00] VITALS: BP 124/65
[2021-04-03] MEDS: POTASSIUM CHLORIDE IV SCH (14:44)
[2021-04-03] MEDS: LR IV SCH (14:44)
[2021-04-03 22:00] VITALS: BP 135/67
[2021-04-04] MEDS: LR IV SCH ×3 (01:16→23:23)
[2021-04-04] MEDS: POTASSIUM CHLORIDE IV SCH ×3 (01:16→23:23)
[2021-04-04 06:00] VITALS: BP 136/68
[2021-04-04 06:33] LABS: HEMATOCRIT 35.1 % (36.0-47.0); MEAN CORPUSCULAR HEMOGLOBIN 27.8 pg (27.0-33.0); MEAN CORPUSCULAR HGB CONC 31.3 g/dl (32.0-36.5); MEAN CORPUSCULAR VOLUME 88.9 fl (80.0-96.0); PLATELET COUNT, AUTOMATED 172 10^3/uL (150-450); RED BLOOD COUNT 3.95 10^6/uL (4.00-5.40); WHITE BLOOD COUNT 4.9 10^3/uL (4.0-10.0)
[2021-04-04 06:46] LABS: CALCIUM LEVEL 8.2 MG/DL (8.8-10.2); GLOMERULAR FILTRATION RATE 59.2 (>45); POTASSIUM SERUM 3.5 MEQ/L (3.5-5.1)
[2021-04-04] MEDS: ADVAIR HFA 230/21MCG INHALER INH SCH ×2 (07:50→17:49)
[2021-04-04] MEDS: PANTOPRAZOLE 40MG TAB (PROTONIX) PO SCH ×2 (08:40→20:37)
[2021-04-04] MEDS: PREGABALIN 75 MG CAP(LYRICA) PO SCH ×2 (08:40→20:37)
[2021-04-04] MEDS: rOPINIRole 1MG TAB PO SCH ×2 (08:40→20:37)
[2021-04-04] MEDS: ENOXAPARIN 40MG/0.4ML SYRINGE (J1650 PER 10MG) SC SCH (08:41)
--- NOTE | 2021-04-04 08:52 | SKHPN ---
[facility] Progress Note Date of Service/Time Date: Apr 04, 2021 Progress Note SUBJECTIVE: Ms. Mckeon is a 65yo female who presents on her 2nd hospital day with SBO. Overnight, Ms. Mckeon was able to pass gas a few times, but denies any bowel movements. She notices intermittent gurgling in her abdomen. Her abdominal pain has subsided to 2-3/10 focused in her periumbilical area. There was no change in NG tube placement per Dr. Werner. Patient denied headache, SOB, CP, numbness or tingling in extremities. OBJECTIVE: PHYSICAL EXAMINATION: VITAL SIGNS: Please see below. GENERAL: Patient appears stated age, sitting upright at the edge of her bed. She is in no acute distress and looks well rested. NECK: No tenderness in supraclavicular nodes. CARDIOVASCULAR: RRR. No murmurs, rubs, or gallops. 2+ radial pulse in Left wrist. LUNGS: Clear to auscultation bilaterally. No wheezes or crackles. ABDOMINAL: Bowel sounds present in all 4Q's. Tenderness to deep palpation in RLQ and LLQ. EXTREMITIES: No lower leg edema bilaterally. 2+ dorsalis pedis and posterior tibial pulses bilaterally. NEUROLOGICAL: Awake, alert, and oriented X3. LABORATORY DATA: Please see below. IMAGIN04/04/2021 Abdomen, Flat Plate KUB X-Ray Impression: "Normal gas pattern, much improved from previous day's study." ASSESSMENT: Ms. Mckeon is a 65yo female who presents with abdominal pain and constipation found to be SBO on CT scan (04/02/2021 CT Abdomen and Pelvis W/O Contrast). Plan: #. SBO - Continue NPO, except meds, sips, and ice chips per general surgery. - Imaging has shown improvement - Continue NG tube per general surgery. - Added D5 to patient's LR. - General surgery on consultation; recommending small bowel follow through #. Hiatal Hernia/GERD - Continue pantoprazole. #. MALT lymphoma of the Stomach Lugano Stage II - In clinical remission since 11/2019 per oncology #. Asthma/COPD - No evidence of exacerbation - Continue Advair and Albuterol. #. HTN - BP well controlled - Continue amlodipine. #. Chronic neuropathic pain in back and legs - Continue pregabalin. #. Restless leg syndrome - Continue ropinirole. DVT prophylaxis: Lovenox. DISPOSITION: Per general surgery in the AM pending clinical improvement. Allergies Coded Allergies: No Known Allergies (Verified , 12/24/19) GME ATTESTATION GME ATTESTATION My faculty preceptor for this patient encounter was physically present during the encounter and was fully available. All aspects of the patient interview, examination, medical decision making process, and medical care plan development were reviewed and approved by the faculty preceptor. The faculty preceptor is a da silva and concurs with the plan as stated in the body of this note and will attest to such by his/her cosignature. ATTENDING NOTE I, Tete Tellez, have independently examined this patient and performed my own physical exam, as well as reviewed the documentation and edited where necessary. I have discussed in detail with the resident / student the findings and plan of treatment as documented by the resident / student and edited their note. I agree with their findings and treatment plan and have edited their documentation. I will continue to follow the patient during this hospital stay. FERNANDO RUBIO OMS-3 Apr 04, 2021 08:52 TETE TELLEZ MD Apr 04, 2021 12:19
--- NOTE | 2021-04-04 08:54 | REP ---
INDICATION: SBO. COMPARISON: Comparison radiographs April 03, 2021. TECHNIQUE: Supine KUB. Single-view. FINDINGS: Bowel gas pattern has normalized. There is no longer evidence of small bowel dilation or small bowel gas. Air and stool is seen in a nondistended colon. There are clips in right upper quadrant of the abdomen and a single clip is again seen in the left true pelvis. Flank stripes are intact. Psoas margins are symmetric. There are degenerative changes in the lumbar spine along with a levoconvex lumbar curvature. IMPRESSION: Normal bowel gas pattern, much improved from the previous day's study. <Electronically signed by Costa Heller > 04/04/21 [id number]
--- NOTE | 2021-04-04 09:41 | IPNPDOC ---
Text Note Date of Service The patient was seen on 04/04/21. NOTE General surgery. Dr. Werner. The patient is a 65-year-old female admitted with small bowel obstruction. NG tube currently. The patient is currently off the floor for imaging. Afebrile VSS WBC 4.9 Abdominal x-ray this morning pending Assessment/plan SBO The patient is reviewed by Dr. Paula. NG tube in place. NPO IV fluids as per hospitalist. AXR this am pending. Further recommendations pending review of imaging as per Dr Paula. Continue to closely monitor VS,Fishbone, I+O VS, Fishbone, I+O Laboratory Tests 04/04/21 05:42 Vital Signs Date Time Temp Pulse Resp B/P (MAP) Pulse Ox O2 Delivery O2 Flow Rate FiO2 04/04/21 08:41 88 136/68 04/04/21 06:00 97.7 20 96 Room Air I&O- Last 24 Hours up to 6 AM 04/04/21 05:59 Intake Total 800 ml Output Total 0 ml Balance 800 ml Jane Auguste Apr 04, 2021 09:40
[2021-04-04] MEDS ORDERED: E-Z-PAQUE 96% w/w SUSP 176GM BTL As Ordered ONE (10:21)
[2021-04-04] MEDS: D5 IV SCH ×2 (11:15→23:23)
[2021-04-04 14:00] VITALS: BP 130/69
--- NOTE | 2021-04-04 15:59 | REP ---
INDICATION: ?sbo, use ng tube. COMPARISON: None. TECHNIQUE: The procedure was performed under the direct supervision of Dr. Heller. The images were reviewed with Dr. Heller. Liquid barium was administered through the NG tube and the barium column was followed through the small bowel to the level of the terminal ileum. 1.3 minutes of fluoro time was utilized for this procedure. FINDINGS: The mineral resources inspector film shows no organomegaly or pathological masses. The intestinal gas pattern is nonspecific. There are surgical clips noted in the right upper quadrant. The NG tube is seen coiled in the hiatal hernia which appears to encompass most of the stomach. Small bowel transit time is rapid as there is contrast seen in the cecum at the 0 minute film. There is no evidence of obstruction. There is patchy/multifocal mucosal and mural edema. There is minimal dilation. Differentials include inflammatory bowel disease versus infectious enteritis or ileus. IMPRESSION: There is no evidence of obstruction. There is patchy/multifocal mucosal and mural edema. There is minimal dilation. Differentials include inflammatory bowel disease versus infectious enteritis or ileus. <Electronically signed by Jd Monroe > 04/04/21 1521 <Electronically signed by Costa Heller > 04/04/21 1550
[2021-04-05 06:00] VITALS: BP 130/71
[2021-04-05] MEDS: ADVAIR HFA 230/21MCG INHALER INH SCH (07:03)
[2021-04-05 08:26] LABS: HEMATOCRIT 35.3 % (36.0-47.0); HEMOGLOBIN 10.9 g/dl (12.0-15.5); MEAN CORPUSCULAR HEMOGLOBIN 27.5 pg (27.0-33.0); MEAN CORPUSCULAR HGB CONC 30.9 g/dl (32.0-36.5); MEAN CORPUSCULAR VOLUME 88.9 fl (80.0-96.0); PLATELET COUNT, AUTOMATED 207 10^3/uL (150-450); RED BLOOD COUNT 3.97 10^6/uL (4.00-5.40); WHITE BLOOD COUNT 3.2 10^3/uL (4.0-10.0)
--- NOTE | 2021-04-05 08:37 | IPNPDOC ---
Text Note Date of Service The patient was seen on 04/05/21. NOTE General surgery. Dr. Paula The patient is a 65-year-old female admitted with small bowel obstruction. NG tube removed 04/04. The patient is leaving the floor currently for imaging however she states she is feeling better. Abdominal pain is resolved. Reports having a bowel movement. 4 BMs documented yesterday. Tolerating clear liquids. Afebrile VSS WBC 3.2, hemoglobin 10.9 Assessment/plan SBO The patient is reviewed by Dr. Paula. NG tube removed yesterday, currently tolerating clear liquids. 4 BM yesterday. Patient reports abdominal pain is resolved. The patient is currently leaving the floor for imaging. AXR pending. VS,Fishbone, I+O VS, Fishbone, I+O Laboratory Tests 04/05/21 07:54 Vital Signs Date Time Temp Pulse Resp B/P (MAP) Pulse Ox O2 Delivery O2 Flow Rate FiO2 04/05/21 06:00 97.0 73 20 130/71 (90) 93 Room Air I&O- Last 24 Hours up to 6 AM 04/05/21 05:59 Intake Total 3295 ml Output Total 500 ml Balance 2795 ml Jane Auguste Apr 05, 2021 08:37
--- NOTE | 2021-04-05 08:44 | REP ---
INDICATION: SBO COMPARISON: 04/04/2021 TECHNIQUE: Supine view of the abdomen and pelvis. FINDINGS: Bowel gas pattern is nonspecific. Small amount of residual contrast is identified outlining the colon from the cecum and appendix to the rectosigmoid. No evidence for bowel obstruction noted. No organomegaly. Prior cholecystectomy. Skeletal structures demonstrate stable age-related degenerative changes. IMPRESSION: Nonspecific bowel gas pattern with contrast outlining collapsed colon. <Electronically signed by James Mancilla > 04/05/21 0846
[2021-04-05 08:51] LABS: BLOOD UREA NITROGEN 13 MG/DL (7-18); CALCIUM LEVEL 8.2 MG/DL (8.8-10.2); CARBON DIOXIDE LEVEL 32 MEQ/L (21-32); CHLORIDE LEVEL 102 MEQ/L (98-107); CREATININE FOR GFR 0.91 MG/DL (0.55-1.30); GLOMERULAR FILTRATION RATE > 60.0 (>45); GLUCOSE, FASTING 118 MG/DL (70-100); SODIUM LEVEL 140 MEQ/L (136-145)
[2021-04-05] MEDS: ENOXAPARIN 40MG/0.4ML SYRINGE (J1650 PER 10MG) SC SCH (09:00)
[2021-04-05] MEDS: PANTOPRAZOLE 40MG TAB (PROTONIX) PO SCH (09:07)
[2021-04-05 09:08] VITALS: BP 130/71
[2021-04-05] MEDS: POTASSIUM CHLORIDE IV SCH (09:08)
[2021-04-05] MEDS: rOPINIRole 1MG TAB PO SCH (09:08)
[2021-04-05] MEDS: D5 IV SCH (09:08)
[2021-04-05] MEDS: LR IV SCH (09:08)
[2021-04-05] MEDS: PREGABALIN 75 MG CAP(LYRICA) PO SCH (09:08)
[2021-04-05] MEDS ORDERED: POTASSIUM CHLORIDE 10 MEQ SR TABLET PO ONE (09:30)
--- NOTE | 2021-04-05 10:12 | DS.PDOC ---
Discharge Summary General Date of Admission Apr 02, 2021 at 18:16 Date of Discharge 04/05/2021 Primary Care Physician: Montserrat Crowe Attending Physician: TETE TELLEZ MD Specialist/Consultants Involve: Jose Paula Jr Discharge Summary PROCEDURES PERFORMED DURING STAY: [None]. ADMITTING/DISCHARGE DIAGNOSES: SBO w/ transition point in RLQ at distal bowel per CT Abdomen & Pelvis W/O Contrast (04/02/21) COMPLICATIONS/CHIEF COMPLAINT: Abdominal pain and constipation. HISTORY OF PRESENT ILLNESS: Ms. Mckeon is a 65yo female w/ PMHx of Maltoma of the Stomach Lugano Stage II (clinical remission 11/2019 per oncology) and hiatal hernia who presented with 3 days of abdominal pain and constipation prior to arriving in the ED on 04/02/2021. She tried Colace without relief. Abdominal X-ray in the ER showed multiple fluid and gas-filled dilated small bowel loops in the abdomen indicative of small bowel obstruction. Patient was admitted and general surgery was consulted. HOSPITAL COURSE: On admission, patient was placed NPO with IV fluids. An NG tube was placed per general surgery. Patient had diminished bowel sounds, tenderness and 4-5/10 abdominal pain. On 2nd hospital day, patient had first bowel movement. NG tube was removed and she was placed on a clear liquid diet per general surgery. By the 3rd hospital day, patient had multiple bowel movements and no abdominal pain. She was switched to a regular diet per general surgery. DISCHARGE MEDICATIONS: Please see below. ALLERGIES: Please see below. PHYSICAL EXAMINATION ON DISCHARGE: VITAL SIGNS: Please see below. GENERAL: Patient appears stated age and well rested. NECK: Nontender supraclavicular nodes bilaterally. HEART: Normal heart sounds. No murmurs, rubs, or gallops. LUNGS: Clear to auscultation bilaterally. ABDOMINAL EXAMINATION: Bowel sounds present in all 4Q's. Nontender to soft and deep palpation. EXTREMITIES: No pedal edema bilaterally. 2+ dorsalis pedis and posterior tibial pulses bilaterally. SKIN: Patient has erythema and slight skin irritation near NG tube placement on right side of nose and near IV on left arm. NEUROLOGICAL EXAMINATION: Awake, alert, and oriented X3. LABORATORY DATA: Please see below. IMAGIN04/05/2021 Abdominal X-Ray Impression Report: "Nonspecific bowel gas pattern with contrast outlining collapsed colon." PROGNOSIS: Good. ACTIVITY: As tolerated. DIET: Regular diet. DISPOSITION: Home. DISCHARGE INSTRUCTIONS: 1. Followup with PCP and General surgery within 2 weeks. 2. Please return to hospital if abdominal pain worsens, unable to tolerate oral intake or symptoms worsen. ITEMS TO FOLLOWUP ON ON OUTPATIENT: 1. No followup needed per general surgery. DISCHARGE CONDITION: Stable. TIME SPENT ON DISCHARGE: 35 minutes. Vital Signs/I&Os Vital Signs Date Time Temp Pulse Resp B/P (MAP) Pulse Ox O2 Delivery O2 Flow Rate FiO2 04/05/21 09:08 73 130/71 04/05/21 06:00 97.0 20 93 Room Air I&O- Last 24 Hours up to 6 AM 04/05/21 05:59 Intake Total 3295 ml Output Total 500 ml Balance 2795 ml Laboratory Data Labs 24H Laboratory Tests 2 04/05/21 07:54: Nucleated Red Blood Cells % (auto) 0.0, Anion Gap 6L, Glomerular Filtration Rate > 60.0, Calcium Level 8.2L CBC/BMP Laboratory Tests 04/05/21 07:54 Discharge Medications Scheduled Amlodipine Besylate (Amlodipine Besylate) 2.5 Mg Tablet, 2.5 MG PO DAILY, (Reported) Chlorthalidone (Chlorthalidone) 25 Mg Tablet, 25 MG PO DAILY, (Reported) Elderberry Fruit and Flower (Black Elderberry 575 mg Cap) 1 Each Capsule, 1 CAP PO DAILY, (Reported) Ergocalciferol (Vitamin D2) (Vitamin D2) 50,000 Units Cap, 50,000 UNITS PO 1XWK, (Reported) FRIDAY Famotidine (Famotidine) 40 Mg Tablet, 40 MG PO DAILY, (Reported) Ferrous Sulfate (Iron) 325 Mg Tablet, 325 MG PO DAILY, (Reported) Fluticasone Furoate (Arnuity Ellipta) 200 Mcg Blst.w.dev, 1 PUFF INH DAILY, (Reported) Glycopyrrolate/Formoterol Fum (Bevespi Aerosphere Inhaler) 10.7 Gm Hfa.aer.ad, 2 PUFF INH BID, (Reported) Meloxicam (Meloxicam) 15 Mg Tablet, 15 MG PO DAILY, (Reported) Pantoprazole Sodium (Pantoprazole Sodium) 40 Mg Tablet.dr, 40 MG PO BID, (Reported) Pregabalin (Pregabalin) 75 Mg Capsule, 75 MG PO BID, (Reported) Ropinirole HCl (Ropinirole HCl) 1 Mg Tablet, 1 MG PO BID, (Reported) Rosuvastatin Calcium (Rosuvastatin Calcium) 20 Mg Tablet, 20 MG PO QHS, (Reported) Scheduled PRN Acetaminophen (Acetaminophen ER) 650 Mg Tablet.er, 650 MG PO TID PRN for PAIN, (Reported) Albuterol Sulfate (Albuterol Sulfate Hfa) 8.5 Gm Hfa.aer.ad, 2 PUFF INH QID PRN for SHORTNESS OF BREATH, (Reported) Docusate Sodium (Colace) 100 Mg Capsule, 100 MG PO DAILY PRN for CONSTIPATION, (Reported) Loratadine/Pseudoephedrine (Claritin-D 24 Hour Tablet) 1 Each Tab.er.24h, 1 TAB PO DAILY PRN for CONGESTION, (Reported) Allergies Coded Allergies: No Known Allergies (Verified , 12/24/19) GME ATTESTATION GME ATTESTATION My faculty preceptor for this patient encounter was physically present during the encounter and was fully available. All aspects of the patient interview, examination, medical decision making process, and medical care plan development were reviewed and approved by the faculty preceptor. The faculty preceptor is aware and concurs with the plan as stated in the body of this note and will attest to such by his/her cosignature. ATTENDING NOTE I, Tete Tellez, have independently examined this patient and performed my own physical exam, as well as reviewed the documentation and edited where necessary. I have discussed in detail with the resident / student the findings and plan of treatment as documented by the resident / student and edited their note. I agree with their findings and treatment plan and have edited their documentation. I will continue to follow the patient during this hospital stay. Time spent on discharge 35 minutes FERNANDO RUBIO OMS-3 Apr 05, 2021 10:12 TETE TELLEZ MD Apr 05, 2021 16:12
== END 2021-04-05 15:30 | disposition home or self-care (01) | DRG 390 ==
LOC: M ED 14:25 → M ED INP 18:16 → ENRESERV 21:04 → M MS5PR 22:10
PROVIDERS: ADMIT Neuromusculoskeletal Medicine & OMM; ATTEND Internal Medicine
DX: K56.609 Unspecified intestinal obstruction, unspecified as to partial versus complete obstruction (principal); J44.9 Chronic obstructive pulmonary disease, unspecified; J45.909 Unspecified asthma, uncomplicated; K21.9 Gastro-esophageal reflux disease without esophagitis; I10 Essential (primary) hypertension; G25.81 Restless legs syndrome; K44.9 Diaphragmatic hernia without obstruction or gangrene; G57.93 Unspecified mononeuropathy of bilateral lower limbs; K59.00 Constipation, unspecified; Z87.891 Personal history of nicotine dependence; D72.829 Elevated white blood cell count, unspecified; Z20.822 Contact with and (suspected) exposure to COVID-19; Z79.1 Long term (current) use of non-steroidal anti-inflammatories (NSAID); Z79.899 Other long term (current) drug therapy; Z85.79 Personal history of other malignant neoplasms of lymphoid, hematopoietic and related tissues; Z90.49 Acquired absence of other specified parts of digestive tract; Z92.21 Personal history of antineoplastic chemotherapy; K29.50 Unspecified chronic gastritis without bleeding

== ENCOUNTER → 2021-04-18 | Outpatient (REF) | payer MEDICARE ==
[~2021-04-18] MED LIST changes: +BEVE1AER INH; +ERGO500029 PO
[2021-04-18 17:47] LABS: PERCENT SATURATION 8.7 % (13.2-45.0)
== END ==
LOC: M LAB REF 16:36
PROVIDERS: ATTEND Internal Medicine
DX: D50.9 Iron deficiency anemia, unspecified (principal)

== ENCOUNTER 2021-04-30 08:19 | Outpatient (CLI) | payer MEDICARE ==
[~2021-04-30] VITALS: Ht 162.6 cm; Wt 98.6 kg
[2021-04-30] MEDS ORDERED: IRON SUCROSE 25 MG in NS 25 ML IV ONE (08:30)
[2021-04-30 08:35] VITALS: BP 139/70
[2021-04-30] MEDS ORDERED: IRON SUCROSE 475 MG in NS 250 ML IV ONE (09:30)
[2021-04-30 10:15] VITALS: BP 138/72
[2021-04-30 11:20] VITALS: BP 162/72
[2021-04-30 12:20] VITALS: BP 164/60
[2021-04-30 13:20] VITALS: BP 111/58
[2021-04-30 14:30] VITALS: BP 142/82
== END 2021-04-30 14:45 | disposition home or self-care (01) ==
LOC: M INFU 08:19
PROVIDERS: ATTEND Internal Medicine
DX: D50.9 Iron deficiency anemia, unspecified (principal)
CPT/HCPCS: 96365; 96366; J1756

== ENCOUNTER → 2021-08-08 | Outpatient (REF) | payer MEDICARE ==
[2021-08-08 16:41] LABS: PERCENT SATURATION 4.9 % (13.2-45.0)
== END ==
LOC: M LAB REF 16:18
PROVIDERS: ATTEND Internal Medicine
DX: D50.9 Iron deficiency anemia, unspecified (principal)

== ENCOUNTER → 2021-08-18 | Outpatient (REF) | payer MEDICARE ==
[~2021-08-18] MED LIST changes: +ACET650T61 PO; +ONDA-84 PO; -ONDA8TAB10 PO; -PROC10TA4 PO; +PROC10TA5 PO
== END ==
LOC: M LAB REF 11:42
PROVIDERS: ATTEND Internal Medicine Hematology & Oncology
DX: C85.90 Non-Hodgkin lymphoma, unspecified, unspecified site (principal)

== ENCOUNTER 2021-08-20 11:05 | Outpatient (CLI) | payer MEDICARE ==
[~2021-08-20] VITALS: Ht 162.6 cm; Wt 100.2 kg
[~2021-08-20 11:05] MED LIST changes: +IRON SUCROSE 25 MG in NS 25 ML IV ONE; +IRON SUCROSE 475 MG in NS 250 ML IV ONE
[2021-08-20 11:10] VITALS: BP 130/83
[2021-08-20 12:31] VITALS: BP 136/72
[2021-08-20 13:30] VITALS: BP 145/66
[2021-08-20 14:30] VITALS: BP 123/67
[2021-08-20 15:30] VITALS: BP 188/81
[2021-08-20 17:00] VITALS: BP 141/77
== END 2021-08-20 17:00 | disposition home or self-care (01) ==
LOC: M INFU 11:05
PROVIDERS: ATTEND Internal Medicine
DX: D50.9 Iron deficiency anemia, unspecified (principal)
CPT/HCPCS: 96365; 96366; J1756

== ENCOUNTER → 2021-09-05 | Outpatient (CLI) | payer MEDICARE ==
[~2021-09-05] MED LIST changes: -IRON SUCROSE 25 MG in NS 25 ML IV ONE; -IRON SUCROSE 475 MG in NS 250 ML IV ONE; +TRAZ-252 PO
[2021-09-05 17:22] LABS: BASO % 0.7 % (0.0-1.0); EOS # 0.1 10^3/uL (0.0-0.5); EOS % 1.1 % (0.0-3.0); HEMATOCRIT 32.3 % (36.0-47.0); HEMOGLOBIN 9.1 g/dl (12.0-15.5); LYMPH # 0.8 10^3/uL (1.5-5.0); LYMPH % 18.4 % (24.0-44.0); MEAN CORPUSCULAR HEMOGLOBIN 22.9 pg (27.0-33.0); MEAN CORPUSCULAR HGB CONC 28.2 g/dl (32.0-36.5); MEAN CORPUSCULAR VOLUME 81.4 fl (80.0-96.0); MONO # 0.5 10^3/uL (0.0-0.8); MONO % 12.1 % (2.0-8.0); NEUTROPHILS % 67.7 % (36.0-66.0); PLATELET COUNT, AUTOMATED 332 10^3/uL (150-450); RED BLOOD COUNT 3.97 10^6/uL (4.00-5.40); WHITE BLOOD COUNT 4.5 10^3/uL (4.0-10.0)
== END ==
LOC: M ADAMS 13:06
PROVIDERS: ATTEND Internal Medicine Gastroenterology
DX: C85.99 Non-Hodgkin lymphoma, unspecified, extranodal and solid organ sites (principal); D50.9 Iron deficiency anemia, unspecified

== ENCOUNTER → 2021-09-17 | Outpatient (CLI) | payer MEDICARE | LOC: M LABSMTC 10:58 | PROVIDERS: ATTEND Anesthesiology | DX: Z01.818 Encounter for other preprocedural examination (principal); Z11.52 Encounter for screening for COVID-19 ==

== ENCOUNTER 2021-09-21 11:46 | Day surgery (SDC) | payer MEDICARE ==
[~2021-09-21] VITALS: Ht 162.6 cm; Wt 97.1 kg
[~2021-09-21 11:46] MED LIST changes: +NS 1,000 ML IV ONE
[2021-09-21] MEDS ORDERED: LIDOCAINE 2% 100MG/5ML SDV (FOR ANES.) As Ordered ONE (12:23)
[2021-09-21] MEDS ORDERED: fentaNYL 100 MCG/2 ML INJECTION As Ordered ONE (12:23)
[2021-09-21] MEDS ORDERED: propofoL 500 MG/50 ML VIAL As Ordered ONE (12:23)
[2021-09-21 14:00] VITALS: BP 135/78
== END 2021-09-21 14:19 | disposition home or self-care (01) ==
LOC: M OPP 11:46
PROVIDERS: ATTEND Internal Medicine Gastroenterology
DX: K63.5 Polyp of colon (principal); K57.30 Diverticulosis of large intestine without perforation or abscess without bleeding; K64.8 Other hemorrhoids; D50.9 Iron deficiency anemia, unspecified; K29.70 Gastritis, unspecified, without bleeding; K44.9 Diaphragmatic hernia without obstruction or gangrene; Z79.899 Other long term (current) drug therapy; Z91.048 Other nonmedicinal substance allergy status; Z87.891 Personal history of nicotine dependence; Z87.19 Personal history of other diseases of the digestive system; Z85.72 Personal history of non-Hodgkin lymphomas; Z92.21 Personal history of antineoplastic chemotherapy; Z80.3 Family history of malignant neoplasm of breast; Z80.41 Family history of malignant neoplasm of ovary; Z80.42 Family history of malignant neoplasm of prostate
CPT/HCPCS: 43239; 45380; 88305; J3010

== ENCOUNTER → 2022-01-03 | Outpatient (CLI) | payer MEDICARE ==
[~2022-01-03] MED LIST changes: -NS 1,000 ML IV ONE
[2022-01-03 16:33] LABS: BASO % 0.6 % (0.0-1.0); EOS # 0.1 10^3/uL (0.0-0.5); EOS % 1.9 % (0.0-3.0); HEMATOCRIT 42.8 % (36.0-47.0); HEMOGLOBIN 13.4 g/dl (12.0-15.5); LYMPH # 1.2 10^3/uL (1.5-5.0); LYMPH % 21.4 % (24.0-44.0); MEAN CORPUSCULAR HEMOGLOBIN 26.4 pg (27.0-33.0); MEAN CORPUSCULAR HGB CONC 31.3 g/dl (32.0-36.5); MEAN CORPUSCULAR VOLUME 84.4 fl (80.0-96.0); MONO # 0.5 10^3/uL (0.0-0.8); MONO % 8.9 % (2.0-8.0); NEUTROPHILS # 3.6 10^3/uL (1.5-8.5); NEUTROPHILS % 66.8 % (36.0-66.0); PLATELET COUNT, AUTOMATED 235 10^3/uL (150-450); RED BLOOD COUNT 5.07 10^6/uL (4.00-5.40); WHITE BLOOD COUNT 5.4 10^3/uL (4.0-10.0)
[2022-01-03 16:38] LABS: APPEARANCE, URINE CLEAR (CLEAR); BACTERIA, URINE AUTO NEGATIVE (NEGATIVE); BILIRUBIN, URINE AUTO NEGATIVE (NEGATIVE); BLOOD, URINE BLOOD NEGATIVE (NEGATIVE); COLOR, URINE STRAW (YELLOW); GLUCOSE, URINE (UA) AUTO NEGATIVE (NEGATIVE); KETONE, URINE AUTO NEGATIVE (NEGATIVE); LEUKOCYTE ESTERASE, URINE AUTO TRACE (NEGATIVE); NITRITE, URINE AUTO NEGATIVE (NEGATIVE); PROTEIN, URINE AUTO NEGATIVE (NEGATIVE); RBC, URINE AUTO 0 /HPF (0-3); SPECIFIC GRAVITY URINE AUTO 1.009 (1.002-1.035); SQUAMOUS EPITHELIAL CELL UR AU 1 /HPF (0-6); UROBILINOGEN, URINE AUTO 0.2 mg/dL (0.0-2.0); WBC, URINE AUTO 3 /HPF (0-3)
[2022-01-03 16:42] LABS: PERCENT SATURATION 13.8 % (13.2-45.0)
[2022-01-03 16:57] LABS: FOLATE 4.8 NG/ML
== END ==
LOC: M ADAMS 12:08
PROVIDERS: ATTEND Internal Medicine Gastroenterology
DX: D50.9 Iron deficiency anemia, unspecified (principal); C16.9 Malignant neoplasm of stomach, unspecified

== ENCOUNTER → 2022-02-27 | Outpatient (CLI) | payer MEDICARE | LOC: M LABSMTC 10:08 | PROVIDERS: ATTEND Internal Medicine Gastroenterology | DX: Z11.52 Encounter for screening for COVID-19 (principal); Z01.812 Encounter for preprocedural laboratory examination ==

== ENCOUNTER → 2022-04-05 | Outpatient (CLI) | payer MEDICARE ==
[~2022-04-05] MED LIST changes: +POTA-150 PO; -POTA10TA17 PO
[2022-04-05 12:52] LABS: BASO % 0.5 % (0.0-1.0); EOS # 0.1 10^3/uL (0.0-0.5); EOS % 1.6 % (0.0-3.0); HEMOGLOBIN 7.6 g/dl (12.0-15.5); LYMPH # 0.8 10^3/uL (1.5-5.0); LYMPH % 20.1 % (24.0-44.0); MEAN CORPUSCULAR HEMOGLOBIN 24.2 pg (27.0-33.0); MEAN CORPUSCULAR HGB CONC 29.2 g/dl (32.0-36.5); MEAN CORPUSCULAR VOLUME 82.8 fl (80.0-96.0); MONO # 0.5 10^3/uL (0.0-0.8); MONO % 12.7 % (2.0-8.0); NEUTROPHILS # 2.5 10^3/uL (1.5-8.5); NEUTROPHILS % 64.6 % (36.0-66.0); PLATELET COUNT, AUTOMATED 259 10^3/uL (150-450); RED BLOOD COUNT 3.14 10^6/uL (4.00-5.40); WHITE BLOOD COUNT 3.8 10^3/uL (4.0-10.0)
[2022-04-05 13:41] LABS: ALBUMIN 3.5 GM/DL (3.2-5.2); BILIRUBIN,TOTAL 0.3 MG/DL (0.2-1.0); CALCIUM LEVEL 8.5 MG/DL (8.8-10.2); CHOLESTEROL RISK RATIO 4.659 (<5); CREATININE FOR GFR 1.13 MG/DL (0.55-1.30); GLOMERULAR FILTRATION RATE 51.3 (>45); POTASSIUM SERUM 4.3 MEQ/L (3.5-5.1); TOTAL PROTEIN 6.3 GM/DL (6.4-8.2)
== END ==
LOC: M ADAMS 08:46
PROVIDERS: ATTEND Internal Medicine
DX: E61.1 Iron deficiency (principal); I10 Essential (primary) hypertension; E78.2 Mixed hyperlipidemia

== ENCOUNTER → 2022-04-08 | Outpatient (REF) | payer MEDICARE ==
[2022-04-08 17:50] LABS: PERCENT SATURATION 3.2 % (13.2-45.0)
[2022-04-08 18:20] LABS: FOLATE 6.9 NG/ML
[2022-04-08 19:56] LABS: LYMPHOCYTES 16 % (16-44); MONOCYTES 6 % (0-5); NEUTROPHILS 77 % (28-66)
[2022-04-08 19:59] LABS: ANISOCYTOSIS 1+; HYPOCHROMASIA 3+
[2022-04-08 20:01] LABS: TEAR DROP CELLS 1+
[2022-04-08 20:02] LABS: PLATELET ESTIMATE NORMAL (NORMAL); SCHISTOCYTES 1+
== END ==
LOC: M LAB REF 16:19
PROVIDERS: ATTEND Internal Medicine
DX: E61.1 Iron deficiency (principal)

== ENCOUNTER 2022-04-12 09:21 | Outpatient (CLI) | payer MEDICARE ==
[~2022-04-12] VITALS: Ht 162.6 cm; Wt 59.0 kg
[~2022-04-12 09:21] MED LIST changes: +IRON SUCROSE 200 MG in NS 100 ML OVER 1 HR IV ONE
[2022-04-12 09:30] VITALS: BP 134/98
[2022-04-12 11:40] VITALS: BP 135/65
[2022-04-17] MEDS ORDERED: CELE1CAP7 (10:08)
== END 2022-04-12 11:45 | disposition home or self-care (01) ==
LOC: M INFU 09:21
PROVIDERS: ATTEND Internal Medicine
DX: D50.9 Iron deficiency anemia, unspecified (principal)
CPT/HCPCS: 96365; J1756

== ENCOUNTER 2022-04-19 10:20 | Outpatient (CLI) | payer MEDICARE ==
[~2022-04-19] VITALS: Ht 162.6 cm; Wt 59.0 kg
[2022-04-19 10:20] VITALS: BP 184/88
[~2022-04-19 10:20] MED LIST changes: +CELE1CAP7; -IRON SUCROSE 200 MG in NS 100 ML OVER 1 HR IV ONE
[2022-04-19] MEDS ORDERED: IRON SUCROSE 200 MG in NS 100 ML OVER 1 HR IV ONE (10:30)
[2022-04-19 12:00] VITALS: BP 158/62
== END 2022-04-19 12:00 | disposition home or self-care (01) ==
LOC: M INFU 10:20
PROVIDERS: ATTEND Internal Medicine
DX: D50.9 Iron deficiency anemia, unspecified (principal)
CPT/HCPCS: 96365; J1756

== ENCOUNTER 2022-04-26 10:20 | Outpatient (CLI) | payer MEDICARE ==
[~2022-04-26] VITALS: Ht 162.6 cm; Wt 59.0 kg
[2022-04-26 10:25] VITALS: BP 120/60
[2022-04-26] MEDS ORDERED: IRON SUCROSE 200 MG in NS 100 ML OVER 1 HR IV ONE (10:30)
[2022-04-26 11:55] VITALS: BP 111/55
== END 2022-04-26 11:55 | disposition home or self-care (01) ==
LOC: M INFU 10:20
PROVIDERS: ATTEND Internal Medicine
DX: D50.9 Iron deficiency anemia, unspecified (principal)
CPT/HCPCS: 96365; J1756

== ENCOUNTER 2022-05-03 09:20 | Outpatient (CLI) | payer MEDICARE ==
[~2022-05-03] VITALS: Ht 162.6 cm; Wt 59.0 kg
[2022-05-03 09:20] VITALS: BP 145/90
[2022-05-03] MEDS ORDERED: IRON SUCROSE 200 MG in NS 100 ML OVER 1 HR IV ONE (09:30)
[2022-05-03 10:55] VITALS: BP 148/70
== END 2022-05-03 10:55 | disposition home or self-care (01) ==
LOC: M INFU 09:20
PROVIDERS: ATTEND Internal Medicine
DX: D50.9 Iron deficiency anemia, unspecified (principal)
CPT/HCPCS: 96365; J1756

== ENCOUNTER → 2022-07-08 | Outpatient (REF) | payer MEDICARE ==
[2022-07-08 18:36] LABS: PERCENT SATURATION 8.6 % (13.2-45.0)
[2022-07-08 18:39] LABS: FERRITIN 7.4 NG/ML (7.3-270.7)
== END ==
LOC: M LAB REF 16:22
PROVIDERS: ATTEND Internal Medicine
DX: E61.1 Iron deficiency (principal)

== ENCOUNTER 2022-07-15 07:50 | Outpatient (CLI) | payer MEDICARE ==
[~2022-07-15] VITALS: Ht 163.8 cm; Wt 93.1 kg
[2022-07-15 08:00] VITALS: BP 140/90
[2022-07-15] MEDS ORDERED: IRON SUCROSE 200 MG in NS 100 ML OVER 1 HR IV ONE (08:00)
[2022-07-15 09:45] VITALS: BP 142/78
== END 2022-07-15 09:45 | disposition home or self-care (01) ==
LOC: M INFU 07:50
PROVIDERS: ATTEND Internal Medicine
DX: D50.9 Iron deficiency anemia, unspecified (principal)
CPT/HCPCS: 96365; J1756

== ENCOUNTER 2022-07-22 14:00 | Outpatient (CLI) | payer MEDICARE ==
[~2022-07-22] VITALS: Ht 162.6 cm; Wt 93.1 kg
[~2022-07-22 14:00] MED LIST changes: +IRON SUCROSE 200 MG in NS 100 ML OVER 1 HR IV ONE
[2022-07-22 14:21] VITALS: BP 140/84
[2022-07-22 16:30] VITALS: BP 150/76
== END 2022-07-22 16:30 | disposition home or self-care (01) ==
LOC: M INFU 14:00
PROVIDERS: ATTEND Internal Medicine
DX: D50.9 Iron deficiency anemia, unspecified (principal)
CPT/HCPCS: 96365; J1756

== ENCOUNTER 2022-07-29 08:05 | Outpatient (CLI) | payer MEDICARE ==
[~2022-07-29] VITALS: Ht 162.6 cm; Wt 93.1 kg
[2022-07-29 08:05] VITALS: BP 148/90
[2022-07-29 09:30] VITALS: BP 120/80
== END 2022-07-29 09:35 | disposition home or self-care (01) ==
LOC: M INFU 08:05
PROVIDERS: ATTEND Internal Medicine
DX: D50.9 Iron deficiency anemia, unspecified (principal)
CPT/HCPCS: 96365; J1756

== ENCOUNTER 2022-08-06 08:25 | Outpatient (CLI) | payer MEDICARE ==
[~2022-08-06] VITALS: Ht 162.6 cm; Wt 93.0 kg
[~2022-08-06 08:25] MED LIST changes: -IRON SUCROSE 200 MG in NS 100 ML OVER 1 HR IV ONE
[2022-08-06] MEDS ORDERED: IRON SUCROSE 200 MG in NS 100 ML OVER 1 HR IV ONE (08:30)
[2022-08-06 08:42] VITALS: BP 148/80
[2022-08-06 10:00] VITALS: BP 150/90
== END 2022-08-06 10:00 ==
LOC: M INFU 08:25
PROVIDERS: ATTEND Internal Medicine
DX: D50.9 Iron deficiency anemia, unspecified (principal)
CPT/HCPCS: 96365; J1756

== ENCOUNTER → 2022-09-04 | Outpatient (CLI) | payer MEDICARE | LOC: M RAD 09:50 | PROVIDERS: ATTEND Physician Assistant | DX: R91.1 Solitary pulmonary nodule (principal); Z87.891 Personal history of nicotine dependence ==

== ENCOUNTER → 2022-09-04 | Outpatient (CLI) | payer MEDICARE | LOC: M RAD 09:57 | PROVIDERS: ATTEND Nurse Practitioner | DX: C88.4 Extranodal marginal zone B-cell lymphoma of mucosa-associated lymphoid tissue [MALT-lymphoma] (principal); K76.0 Fatty (change of) liver, not elsewhere classified; N28.1 Cyst of kidney, acquired ==

== ENCOUNTER → 2022-10-01 | Outpatient (REF) | payer MEDICARE ==
[2022-10-01 13:43] LABS: BASO % 0.4 % (0.0-1.0); EOS # 0.2 10^3/uL (0.0-0.5); HEMATOCRIT 41.5 % (36.0-47.0); HEMOGLOBIN 12.8 g/dl (12.0-15.5); LYMPH # 1.1 10^3/uL (1.5-5.0); LYMPH % 20.3 % (24.0-44.0); MEAN CORPUSCULAR HEMOGLOBIN 29.1 pg (27.0-33.0); MEAN CORPUSCULAR HGB CONC 30.8 g/dl (32.0-36.5); MEAN CORPUSCULAR VOLUME 94.3 fl (80.0-96.0); MONO # 0.6 10^3/uL (0.0-0.8); MONO % 12.2 % (2.0-8.0); NEUTROPHILS # 3.3 10^3/uL (1.5-8.5); NEUTROPHILS % 63.5 % (36.0-66.0); PLATELET COUNT, AUTOMATED 178 10^3/uL (150-450); WHITE BLOOD COUNT 5.3 10^3/uL (4.0-10.0)
[2022-10-01 13:45] LABS: PERCENT SATURATION 33.7 % (13.2-45.0)
[2022-10-01 14:19] LABS: ALBUMIN 3.8 G/DL (3.2-5.2); BILIRUBIN,TOTAL 0.4 MG/DL (0.3-1.2); CALCIUM LEVEL 8.9 MG/DL (8.3-10.6); CHOLESTEROL RISK RATIO 4.07 (<5); FERRITIN 71.4 NG/ML (7.3-270.7); HDL CHOLESTEROL 45.4 MG/DL (>40); TOTAL PROTEIN 6.7 G/DL (5.7-8.2)
[2022-10-01 19:52] LABS: CREATININE FOR GFR 1.2 MG/DL (0.55-1.30); GLOMERULAR FILTRATION RATE 47.8 (>45)
== END ==
LOC: M LABDRWAD 12:54
PROVIDERS: ATTEND Internal Medicine
DX: E78.00 Pure hypercholesterolemia, unspecified (principal); N18.31 Chronic kidney disease, stage 3a; D50.9 Iron deficiency anemia, unspecified

== ENCOUNTER → 2023-09-15 | Outpatient (CLI) | payer MEDICARE ==
[~2023-09-15] MED LIST changes: -CELE1CAP7; +CELE1CAP99; -PREG75CA2 PO; +PREG75CA3 PO; -ROPI1TAB3 PO; +ROPI1TAB73 PO; -ROSU20TA5 PO; +ROSU20TA61 PO
== END ==
LOC: M RAD 10:01
PROVIDERS: ATTEND Physician Assistant
DX: Z87.891 Personal history of nicotine dependence (principal)

== ENCOUNTER → 2023-12-19 | Outpatient (CLI) | payer MEDICARE | LOC: M PLAIMG 08:51 | PROVIDERS: ATTEND Physician Assistant | DX: J44.9 Chronic obstructive pulmonary disease, unspecified (principal); R91.1 Solitary pulmonary nodule; R91.8 Other nonspecific abnormal finding of lung field ==

== ENCOUNTER → 2024-02-23 | Outpatient (CLI) | payer OTHER, MEDICAID | LOC: M WHC 13:23 | PROVIDERS: ATTEND Internal Medicine | DX: Z12.31 Encounter for screening mammogram for malignant neoplasm of breast (principal); M81.0 Age-related osteoporosis without current pathological fracture ==

== ENCOUNTER → 2024-06-08 | Outpatient (REF) | payer OTHER, MEDICAID ==
[~2024-06-08] MED LIST changes: -ROSU20TA61 PO; +ROSU20TA86 PO
[2024-06-08 19:24] LABS: PERCENT SATURATION 27.9 % (13.2-45.0)
[2024-06-08 19:28] LABS: FERRITIN 84.9 NG/ML (7.3-270.7)
== END ==
LOC: M LAB REF 17:24
PROVIDERS: ATTEND Internal Medicine
DX: D50.9 Iron deficiency anemia, unspecified (principal)

== ENCOUNTER → 2024-06-26 | Outpatient (CLI) | payer OTHER, MEDICAID | LOC: M RAD 14:17 | PROVIDERS: ATTEND Orthopaedic Surgery | DX: M51.360 Other intervertebral disc degeneration, lumbar region with discogenic back pain only (principal) ==

== ENCOUNTER → 2024-09-07 | Outpatient (CLI) | payer OTHER, MEDICAID ==
[~2024-09-07] MED LIST changes: -DOXO2INJ IV; +[UNRECOGNIZED DRUG - CODE] IV
== END ==
LOC: M PLAIMG 06:34
PROVIDERS: ATTEND Internal Medicine
DX: M19.011 Primary osteoarthritis, right shoulder (principal)

== ENCOUNTER → 2024-10-11 | Outpatient (REF) | payer OTHER, MEDICAID ==
[2024-10-11 15:21] LABS: ALBUMIN 3.9 G/DL (3.2-5.2); BILIRUBIN,TOTAL 0.3 MG/DL (0.3-1.2); CALCIUM LEVEL 8.9 MG/DL (8.3-10.6); CREATININE FOR GFR 1.33 MG/DL (0.55-1.30); GLOMERULAR FILTRATION RATE 42.1 (>45); POTASSIUM SERUM 4.7 MMOL/L (3.5-5.1)
[2024-10-11 15:28] LABS: BASO % 0.4 % (0.0-1.0); EOS # 0.1 10^3/uL (0.0-0.5); EOS % 1.3 % (0.0-3.0); HEMATOCRIT 41.7 % (36.0-47.0); HEMOGLOBIN 12.9 g/dl (12.0-15.5); LYMPH # 0.8 10^3/uL (1.5-5.0); LYMPH % 15.5 % (24.0-44.0); MEAN CORPUSCULAR HEMOGLOBIN 31.9 pg (27.0-33.0); MEAN CORPUSCULAR HGB CONC 30.9 g/dl (32.0-36.5); MONO # 0.8 10^3/uL (0.0-0.8); MONO % 15.2 % (2.0-8.0); NEUTROPHILS # 3.4 10^3/uL (1.5-8.5); NEUTROPHILS % 65.9 % (36.0-66.0); PLATELET COUNT, AUTOMATED 199 10^3/uL (150-450); RED BLOOD COUNT 4.05 10^6/uL (4.00-5.40); WHITE BLOOD COUNT 5.2 10^3/uL (4.0-10.0)
== END ==
LOC: M LABWUC 12:56
PROVIDERS: ATTEND Nurse Practitioner
DX: K44.9 Diaphragmatic hernia without obstruction or gangrene (principal); G62.9 Polyneuropathy, unspecified; K21.9 Gastro-esophageal reflux disease without esophagitis

== ENCOUNTER 2024-12-13 11:54 | Day surgery (SDC) | payer OTHER, MEDICAID ==
[~2024-12-13] VITALS: Ht 162.6 cm; Wt 107.5 kg
[~2024-12-13 11:54] MED LIST changes: +ALBU2.5V10 INH; +CELE100C PO; +LIDOCAINE 2% 100MG/5ML SDV (FOR ANES.) As Ordered ONE; +POTA-136 PO; -PRED50TA PO; +PRED50TA57 PO; +RA M500C PO; +ROSU5TAB49 PO; +STIO1AER IN; +VENTAER INH; +propofoL 200 MG/20 ML VIAL As Ordered ONE
[2024-12-13] MEDS ORDERED: PHENYLephrine 500MCG 5ML (100MCG/ML) SYRINGE As Ordered ONE (14:01)
[2024-12-13 14:04] VITALS: TEMP 97.3
[2024-12-13 14:22] VITALS: BP 114/54; O2SAT 94
== END 2024-12-13 14:37 | disposition home or self-care (01) ==
LOC: M OPP 11:54
PROVIDERS: ATTEND Internal Medicine Gastroenterology
DX: K22.70 Barrett's esophagus without dysplasia (principal); K29.50 Unspecified chronic gastritis without bleeding; B96.81 Helicobacter pylori [H. pylori] as the cause of diseases classified elsewhere; Z85.79 Personal history of other malignant neoplasms of lymphoid, hematopoietic and related tissues; Z98.890 Other specified postprocedural states; G47.30 Sleep apnea, unspecified; Z91.048 Other nonmedicinal substance allergy status; Z79.51 Long term (current) use of inhaled steroids; Z79.899 Other long term (current) drug therapy; Z87.891 Personal history of nicotine dependence; J45.909 Unspecified asthma, uncomplicated
CPT/HCPCS: 43239; 88305; J2371

== ENCOUNTER 2025-05-01 09:04 | Emergency (ER) | payer OTHER, MEDICAID ==
[~2025-05-01] VITALS: Ht 162.6 cm; Wt 99.3 kg
[~2025-05-01 09:04] MED LIST changes: +ACET-1592 PO; -ACET1TAB37 PO; -LIDOCAINE 2% 100MG/5ML SDV (FOR ANES.) As Ordered ONE; -propofoL 200 MG/20 ML VIAL As Ordered ONE
[2025-05-01 10:54] LABS: BASO # 0.0 10^3/uL (0.0-0.2); BASO % 0.6 % (0.0-1.0); EOS # 0.1 10^3/uL (0.0-0.5); EOS % 0.9 % (0.0-3.0); LYMPH # 0.8 10^3/uL (1.5-5.0); LYMPH % 14.3 % (24.0-44.0); MONO # 0.6 10^3/uL (0.0-0.8); MONO % 10.2 % (2.0-8.0); NEUTROPHILS # 4.0 10^3/uL (1.5-8.5); NEUTROPHILS % 73.6 % (36.0-66.0); PLATELET COUNT, AUTOMATED 190 10^3/uL (150-450)
[2025-05-01 11:13] LABS: INR 0.91
[2025-05-01 11:28] LABS: CALCIUM LEVEL 8.9 MG/DL (8.3-10.6); CARBON DIOXIDE LEVEL 26.0 MMOL/L (20-31); CHLORIDE LEVEL 105.0 MMOL/L (98-107); CREATININE FOR GFR 1.03 MG/DL (0.55-1.30); GLOMERULAR FILTRATION RATE 58.9 (>45); POTASSIUM SERUM 3.9 MMOL/L (3.5-5.1); SODIUM LEVEL 141.0 MMOL/L (136-145)
[2025-05-01 12:48] LABS: KETONE, URINE AUTO RFX NEGATIVE (NEGATIVE); LEUKOCYTE ESTERASE UR AUTO RFX NEGATIVE (NEGATIVE); MUCUS, URINE RFX SMALL (NEGATIVE); RBC, URINE AUTO RFX TNTC /HPF (0-3); SQUAM EPITHELIAL CELL UR AURFX 0 /HPF (0-6); WBC, URINE AUTO RFX 10 /HPF (0-3)
[2025-05-01 12:53] LABS: NITRITE, URINE AUTO RFX POSITIVE (NEGATIVE)
[2025-05-01 14:09] VITALS: BP 114/72; TEMP 97.1; O2SAT 97
== END 2025-05-01 14:26 | disposition home or self-care (01) ==
LOC: M ED 10:37
DX: N95.0 Postmenopausal bleeding (principal); N84.0 Polyp of corpus uteri; I10 Essential (primary) hypertension; D64.9 Anemia, unspecified; J45.909 Unspecified asthma, uncomplicated; Z87.891 Personal history of nicotine dependence; Z91.048 Other nonmedicinal substance allergy status; Z79.51 Long term (current) use of inhaled steroids; Z79.899 Other long term (current) drug therapy